=== PATIENT | male | born 1935 | race Caucasian/White ===

== ENCOUNTER → 2016-12-23 | Day surgery (SDC) | payer MEDICARE ==
[~2016-12-23] MED LIST: AMBI5TAB PO; ASPI1TAB69 PO; GABA300C5 PO; HYDR25TA5 PO; LATA0.002 EACH EYE; LIDOCAINE HCL 1% PF 30 ML VIAL INFIL ONE; LIPI10TA PO; LOSA25TA PO; METF500T PO; MULT1TAB85 PO; OXYC1TAB63 PO; PERC7.5T13 PO; PROPOFOL 200 MG/20 ML AMP IV ONE; ROPI.5 PO; ROPI0.5T PO; SODIUM CHLORIDE 0.9% 10 ML VIAL ONE; TIMO0.5S30 EACH EYE; TRAZ50TA12 PO; TRIAMCINOLONE ACETONIDE 40 MG/ML VIAL NB ONE; methylPREDNISolone ACETATE 40 MG/ML VIAL I-ARTICULR ONE
--- NOTE | 2016-12-26 07:18 | M6 ---
cc: DAHLIA DERAS M.D. DATE 12/23/2016 DATE OF 1935 PROCEDURE Fluoroscopically guided injection of left gluteus medius and minimus. PROCEDURE NOTE History and physical was completed and signed. Consent was signed. Procedure site was marked. Medications were listed and reconciled. Pain score was recorded. Allergies were noted. Time out was taken. Fluoroscopy time was recorded where applicable. Sedation was administered or directed by Dr. Deras. The patient was given oxygen. The patient was monitored by a registered nurse. Total procedure time was greater than 15 minutes. IV was started, blood pressure cuff, pulse oximeter and EKG were applied. The patient was placed in the prone position on a Gage table, sedated with small amounts of propofol titrated to effect. Vital signs were monitored and remained stable throughout the procedure. The left buttocks and hip area were prepped with alcohol and 10% Betadine solution and draped with sterile drapes. Fluoroscopy was used to visualize the left trochanter and the left acetabulum. Then a 3-1/2-inch 22-gauge spinal needle was advanced down to the anatomical location of the gluteus medius and there was negative aspiration for blood or any other type of fluid and the patient was given 10 mL of half percent Xylocaine, 20 mg of Depo-Medrol and 20 mg of Kenalog. Following the procedure, the patient was taken to the recovery room with stable vital signs neurologically intact. He will be evaluated immediately and with followup to determine if he has a subjective decrease in his usual pain and a corresponding objective increase his functional capabilities. W. MD JOSÉ LUIS Moody/TOMASA /10:25 AM /7:16 AM
== END | disposition home or self-care (01) ==
LOC: PHSDC 08:39
PROVIDERS: ATTEND Pain Medicine Interventional Pain Medicine
DX: M54.5 Low back pain (principal)
CPT/HCPCS: 64445; 77003; 99152; J1030; J3301

== ENCOUNTER 2017-02-19 05:51 | Inpatient (IN) | payer MEDICARE ==
[~2017-02-19] VITALS: Ht 177.8 cm; Wt 124.0 kg
[~2017-02-19 05:51] MED LIST changes: -LIDOCAINE HCL 1% PF 30 ML VIAL INFIL ONE; -PERC7.5T13 PO; -PROPOFOL 200 MG/20 ML AMP IV ONE; -ROPI.5 PO; -SODIUM CHLORIDE 0.9% 10 ML VIAL ONE; -TRIAMCINOLONE ACETONIDE 40 MG/ML VIAL NB ONE; -methylPREDNISolone ACETATE 40 MG/ML VIAL I-ARTICULR ONE
[2017-02-19] MEDS ORDERED: METOPROLOL TARTRATE 25 MG TAB PO PRN (06:30)
[2017-02-19] MEDS ORDERED: SODIUM CHLORID 0.9% 500 ML IV PRN (06:30)
[2017-02-19] MEDS ORDERED: SODIUM CHLOR 0.9% 1000 ML INJ 1,000 ML IV SCH (06:30)
[2017-02-19] MEDS ORDERED: VANCOMYCIN HCL 1000 MG ON-CALL/NS 250 ML IV SCH ×2 (06:30)
[2017-02-19] MEDS ORDERED: LACTATED RINGER'S 1000 ML IV PRN (06:30)
[2017-02-19] MEDS ORDERED: INSULIN HUMAN REGULAR 1,000 UNITS/10 ML VIAL SQ PRN (06:30)
[2017-02-19] MEDS ORDERED: CHLORHEXIDINE GLUCONATE 2 % 1 PACK (2 CLOTHS) TOPICAL PRN (06:30)
[2017-02-19] MEDS ORDERED: POVIDONE IODINE 5% (ANTISEPSIS KIT) 4 APPLICATIONS EACH NARE PRN (06:30)
[2017-02-19 07:13] VITALS: BP 125/72; PULSE 100; RESP 18; TEMP 98.3; O2SAT 97
[2017-02-19] MEDS ORDERED: FAMOTIDINE 20 MG/2 ML VIAL ONE (08:10)
[2017-02-19] MEDS ORDERED: HYDROmorphone HCL PF 2 MG/ML VIAL ONE (08:10)
[2017-02-19] MEDS ORDERED: ACETAMINOPHEN 1000 MG/100 ML VIAL IV ONE (08:10)
[2017-02-19] MEDS ORDERED: fentaNYL CITRATE 250 MCG/5 ML AMP ONE (08:10)
[2017-02-19] MEDS ORDERED: MIDAZOLAM HCL 2 MG/2 ML VIAL ONE (08:10)
[2017-02-19] MEDS ORDERED: GELFOAM SIZE 100 ONE (08:25)
[2017-02-19] MEDS ORDERED: VANCOMYCIN HCL 1000 MG VIAL ONE (08:25)
[2017-02-19] MEDS ORDERED: THROMBIN (TOPICAL) 5,000 UNIT VIAL ONE ×2 (08:25→11:17)
[2017-02-19] MEDS: BUPIVACAINE/EPINEPHRINE 0.5% 50 ML VIAL ONE ×2 (09:13→11:46)
[2017-02-19] MEDS ORDERED: NEOSTIGMINE 3 MG/3 ML SYR IV ONE (12:00)
[2017-02-19] MEDS ORDERED: ONDANSETRON HCL 4 MG/2 ML VIAL IV PUSH ONE (12:00)
[2017-02-19] MEDS ORDERED: ePHEDrine/NS 25 MG/5 ML SYR IV ONE (12:00)
[2017-02-19] MEDS ORDERED: LACTATED RINGER'S 1000 ML INJ 1,000 ML IV ONE (12:00)
[2017-02-19] MEDS ORDERED: PHENYLEPH/NS 1000 MCG/10 ML SYR IV ONE (12:00)
[2017-02-19] MEDS ORDERED: PROPOFOL 200 MG/20 ML AMP IV ONE (12:00)
[2017-02-19] MEDS ORDERED: diphenhydrAMINE HCL 50 MG/ML VIAL IV PRN (12:30)
[2017-02-19] MEDS ORDERED: GLUCAGON 1 MG/ML VIAL OTHER PRN (12:30)
[2017-02-19] MEDS ORDERED: DEXTROSE 50% IN WATER 50 ML VIAL(D50) IV PRN (12:30)
[2017-02-19] MEDS ORDERED: ACETAMINOPHEN 325 MG TAB PO PRN (12:30)
[2017-02-19] MEDS ORDERED: LACTULOSE SYRUP 20 GM/30 ML CUP PO PRN (12:30)
[2017-02-19] MEDS ORDERED: cloNIDine HCL 0.1 MG TAB PO PRN (12:30)
[2017-02-19] MEDS ORDERED: SODIUM CHLORIDE 0.9% FLUSH 10 ML FLUSH IV FLUSH PRN (12:30)
[2017-02-19] MEDS ORDERED: MENTHOL LOZENGE BUCCAL PRN (12:30)
[2017-02-19] MEDS ORDERED: NALOXONE HCL 0.4 MG/ML AMP IV PRN (12:30)
[2017-02-19] MEDS ORDERED: MAGNESIUM HYDROXIDE SUSP 30 ML CUP PO PRN (12:30)
[2017-02-19] MEDS ORDERED: ZOLPIDEM TARTRATE 5 MG TAB PO PRN (12:30)
[2017-02-19] MEDS ORDERED: ALUMINUM/MAGNESIUM/SIMETH 30 ML CUP PO PRN (12:30)
--- NOTE | 2017-02-19 12:30 | PD.OP ---
MD Marques Payne MD Operative Report Date of Surgery: February 19, 2017 Preoperative Diagnosis: Intractable low back pain with radiculopathy and neurogenic claudication; L4-5 facet and ligamentum flavum hypertrophy with associated spinal stenosis; L5-S1 severe Kelly disc disease with the facet hypertrophy and grade 1 spondylolisthesis with associated foraminal stenosis Postoperative Diagnosis: Same Procedure: L5-S1 transforaminal interbody fusion; L4, L5 and S1 decompressive laminectomy with medial facetectomy and foraminotomy; L5-S1 pedicle screw fixation; L5-S1 interbody cage placement; microsurgical technique Anesthesia: Gen. endotracheal by Marita Arreola Surgeon: Dexter Dumont M.D. Ball Holder(s): Alyx Bates Operation and Findings: Following initiation of general endotracheal anesthesia, the patient had a Suero catheter placed along with sequential compression devices. A gram of vancomycin was administered intravenously and he was turned in a prone position on a Ghassan frame, on a Gage table, and all pressure points adequately padded. The lumbosacral region was then prepped with Chloraprep and sterilely draped with Ioban along the usual sterile draping. A midline skin incision incorporating the previous lumbar incision site was then made extending from the L4-S1 level after infiltrating the skin with 0.5% Marcaine with epinephrine solution extending down through the fascia. The muscle fibers were split using avascular fatty plane and detached from the underlying facets, transverse process and lamina on the left side and a self-retaining retractor used for exposure. Intraoperative fluoroscopy was also used for level of confirmation along with microscope magnification for further dissection. There was significant facet and ligamentum flavum hypertrophy noted at the L4-5 as well as L5-S1 levels. Left L4-5 laminotomy along with medial portion of the facet was resected with a drill bit and there was severe foraminal and lateral recess stenosis from hypertrophied ligamentum flavum and facet which were decompressed bilaterally through the left-sided approach. Left L5 and S1 lamina along with the facet was also resected with the drill bit. There was significant foraminal stenosis with nerve root impingement related to the facet hypertrophy as well as a spondylolisthesis and the exiting L5 nerve root was decompressed completely. There was significant disc height collapse along with disc protrusion and spondylolisthesis also leading to the foraminal stenosis. Epidural hemostasis was achieved with bipolar cautery and Gelfoam with thrombin. Subsequently entered into the disc space at the L5-S1 level with a # 15 blade and brody were used for discectomy. I then placed PEEK cage packed with local autograft bone and more local autograft bone was packed adjacent to the cage in interspace for added interbody fusion. With placement of the cage, I was able to distract the interspace and opened up the foramen further bilaterally. Subsequently in order to facilitate the fusion and provide stabilization, pedicle screw fixation was undertaken using Coronado spine screws on entry point at the left L5 level at the junction of the transverse process and facet and the sacral ala through the S1 pedicle approach. Subsequently using AP and lateral fluoroscopy tap and screw placement. The screws were then connected with a monty and locked in place with caps. The construct appeared very secure at this point. The area was then copiously irrigated with Vancomycin solution and powder. The retractors were removed and the bipolar cautery used for hemostasis. The muscle fascia was then approximated using 2-0 Vicryl interrupted stitches and then 3-0 Vicryl subcuticular stitches also placed in interrupted fashion. The final skin closure was completed with BioGlue absorbable. A sterile dressing was then applied. The patient then turned in supine position, extubated and taken to recovery room. There were no intraoperative complications. All sponge and needle counts were correct at the end of procedure. Estimated blood loss about 100 ml. Dexter Dumont MD February 19, 2017 12:30
[2017-02-19] MEDS ORDERED: PROCHLORPERAZINE INJ 10 MG/2 ML VIAL IV PUSH PRN (12:45)
[2017-02-19] MEDS ORDERED: DO NOT ADM ANY ANTICOAGULANT DRUGS PRN (13:00)
[2017-02-19] MEDS ORDERED: *morphine SULFATE 8 MG/ML PERIprocedure ONLY ONE (13:13)
[2017-02-19] MEDS: NS + KCL 20 MEQ INJ 1,000 ML IV SCH (13:15)
--- NOTE | 2017-02-19 13:30 | RADRPT ---
EXAM DATE/TIME: 02/19/2017 08:46 [place] COMPARISON: No previous studies available for comparison. INDICATIONS : Lumbar spine L5-S1 laminectomy, interbody cage, and pedicle screw fixation. OR. MEDICAL HISTORY : None. SURGICAL HISTORY : None. ENCOUNTER: Initial ACUITY: 1 day PAIN SCORE: Non-responsive. LOCATION: Lumbar L5-S1 FINDINGS: There is anterior and posterior fusion with pedicle screws on the left and interbody graft from L5-S1 . CONCLUSION: 1. Postsurgical changes as above. Georges Cardozo MD on February 19, 2017 at 13:23 Board Certified Radiologist. This report was verified electronically.
[2017-02-19] MEDS: MORPHINE SULFATE 30 MG/30 ML PCA IV SCH (13:41)
--- NOTE | 2017-02-19 13:50 | PD.CONS ---
HPI Service [facility] Hospitalists Consult Requested By Dr. Dumont Reason for Consult Medical Management Primary Care Physician Gagandeep Alejo MD Diagnoses: History of Present Illness Mr. Braden is an 81 y/o male with HTN, diabetes mellitus, KARYNA, RLS, and chronic back pain with lumbar spinal stenosis/radiculopathy who was admitted to [facility] on 02/19/17 for L5-S1 transforaminal interbody fusion/ L4, L5 and S1 decompressive laminectomy and fixation. [facility] Hospitalist team was consulted to help with managing the pts chronic medical issues. Pt is seen post-operatively. Pt complains of pain in the back. Pt has had some nausea post-operative. Denies any vomiting, abd pain, chest pain, SOB or palpitations. He feels very restless. Suero catheter is in place. Review of Systems Constitutional: DENIES: Fever, Chills Respiratory: DENIES: Shortness of breath Cardiovascular: DENIES: Chest pain, Palpitations Gastrointestinal: DENIES: Abdominal pain, Nausea, Vomiting Genitourinary: DENIES: Hematuria, Dysuria Musculoskeletal: COMPLAINS OF: Back pain Integumentary: DENIES: Rash Neurologic: DENIES: Headache Psychiatric: DENIES: Confusion Past Family Social History Past Medical History Chronic low back pain/Lumbar spinal stenosis/radiculopathy BPH Cataracts CKD, stage 3 Diabetes mellitus, type 2 HTN Hyperlipidemia Inflammatory polyarthritis Obesity Peripheral neuropathy KARYNA RLS Thrombocytopenia Past Surgical History Appendectomy Lumbar diskectomy Inguinal hernia repair Sinus surgery Tonsillectomy/Adenoidectomy Reported Medications -Metformin 500 Mg PO BIDPC -Ambien 5 Mg PO HS PRN -Aspirin 81 Mg PO DAILY -Lipitor 10 Mg PO HS -Hydrochlorothiazide 25 Mg PO DAILY -Latanoprost Opth Drops 0.005% Drops 1 Drop EACH EYE HS -Losartan 25 Mg PO DAILY -Oxycodone-Acetaminophen 5-325 mg 0.5 Tab PO Q8HR PRN -Timolol Opth Drops 0.5 % Soln 1 Drop EACH EYE Q12HR -Trazodone 100 Mg PO HS -Gabapentin 300 Mg PO 5 capsules daily in divided dosed (2 tablets@1200,1 tablet @1700, 1 tablet @1900, 1 tablet @2100) -Ropinirole 0.5 Mg (1 tablet @1200, 1 tablet @1700, 2 tablets @2100) ?Duloxetine 30Mg PO DAILY Allergies: Coded Allergies: No Known Allergies (Verified , 02/19/17) Family History Mother with hx of lung cancer Father with hx of CAD Social History Denies any alcohol, tobacco or illicit drug use Pt is retired from [employer] Pt is and lives locally with his spouse. Physical Exam Vital Signs Vital Signs Date Time Temp Pulse Resp B/P Pulse Ox O2 Delivery O2 Flow Rate FiO2 02/19/17 07:13 98.3 100 18 125/72 97 Physical Exam GENERAL: This is a well-nourished, well-developed patient, in no apparent distress. HEENT: Atraumatic. Normocephalic. No temporal or scalp tenderness.No scleral icterus. Airway patent. NECK: Trachea midline, supple, nontender CARDIO: Regular. RESP: CTA bilaterally. No wheezes, rales, or rhonchi. ABD: +BS, soft, non-tender, nondistended. EXT: Extremities without clubbing, cyanosis, or edema. NEURO: Awake and alert. Motor and sensory grossly within normal limits. Normal speech. Laboratory Laboratory Tests Test 02/19/17 07:30 Blood Type O POSITIVE Antibody Screen NEGATIVE Blood Bank Comment Imaging Last Impressions Lumbar Spine X-Ray 02/19/17 0000 Signed Impressions: Service Date/Time: Sunday, February 19, 2017 08:46 - CONCLUSION: 1. Postsurgical changes as above. Georges Cardozo MD Assessment and Plan Problem List: (1) Lumbar stenosis with neurogenic claudication Status: Acute Plan: - Pt s/p L5-S1 transforaminal interbody fusion/ L4, L5 and S1 decompressive laminectomy and fixation on 02/19/[address] Dumont. - Post-op pain control per Neurosurgery - PT daily - IS - Constipation precautions - Pt has Suero catheter in place - DVT prophylaxis (2) HTN (hypertension), benign Status: Chronic Plan: - Home meds continued with parameters - Monitor (3) Diabetes mellitus type 2, noninsulin dependent Status: Chronic Plan: - NovoLog SSI - Accu checks - Metformin continued (4) Hyperlipidemia Status: Chronic Plan: - Cont. home meds (5) KARYNA (obstructive sleep apnea) Status: Chronic Deysi Andrew February 19, 2017 13:50 Emil Ghotra MD February 19, 2017 22:14
[2017-02-19 13:52] LABS: AUTOMATED NEUTROPHIL # 9.2 TH/MM3 (1.8-7.7); BASOPHIL % 0.2 % (0.0-2.0); EOSINOPHIL # 0.2 TH/MM3 (0-0.4); EOSINOPHIL % 1.7 % (0.0-4.0); HEMATOCRIT 35.4 % (39.0-51.0); HEMO FLAGS DIFF FINAL; LYMPH % 5.5 % (9.0-44.0); LYMPHOCYTE # 0.6 TH/MM3 (1.0-4.8); MEAN CELL VOLUME 92.5 FL (80.0-100.0); MEAN CORPUSCULAR HEMOGLOBIN 31.8 PG (27.0-34.0); MEAN CORPUSCULAR HGB CONC 34.4 % (32.0-36.0); MONO % 6.5 % (0.0-8.0); NEUT % 86.1 % (16.0-70.0); PLATELET COUNT 147 TH/MM3 (150-450); RED BLOOD COUNT 3.83 MIL/MM3 (4.50-5.90); RED CELL DISTRIBUTION WIDTH 15.5 % (11.6-17.2); WHITE BLOOD COUNT 10.7 TH/MM3 (4.0-11.0)
[2017-02-19] MEDS: PCA - TOTAL MG MORPHINE DELIVERED PER SHIFT SCH ×2 (14:00→21:10)
[2017-02-19] MEDS ORDERED: GABAPENTIN 300 MG CAP PO SCH (14:00)
[2017-02-19 14:09] LABS: BICARBONATE 29.5 MEQ/L (21.0-32.0); MAGNESIUM 1.7 MG/DL (1.5-2.5)
[2017-02-19 16:00] VITALS: BP 119/70; PULSE 96; RESP 20; TEMP 96.6; O2SAT 91
[2017-02-19] MEDS: INSULIN NovoLIN REGULAR SUPPLEMENTAL SCALE SQ SCH ×2 (16:00→21:00)
[2017-02-19] MEDS: ONDANSETRON HCL 4 MG/2 ML VIAL IV PRN (16:12)
[2017-02-19 20:00] VITALS: BP 107/69; PULSE 94; RESP 20; TEMP 97.2; O2SAT 93
[2017-02-19 20:50] VITALS: O2SAT 92
[2017-02-19] MEDS: GABAPENTIN 300 MG CAP PO SCH ×2 (21:00→21:02)
[2017-02-19] MEDS: SODIUM CHLORIDE 0.9% FLUSH 10 ML FLUSH IV FLUSH SCH (21:00)
[2017-02-19] MEDS: ATORVASTATIN 10 MG TAB PO SCH (21:03)
[2017-02-19] MEDS: DOCUSATE SODIUM 100 MG CAP PO SCH (21:03)
[2017-02-19] MEDS: traZODone HCL 50 MG TAB PO SCH (21:09)
[2017-02-19] MEDS: LATANOPROST 0.005% OPHT SOLN 2.5 ML BTL EACH EYE SCH (22:12)
[2017-02-19] MEDS: TIMOLOL MALEATE 0.5% OPHT SOLN 5 ML BTL EACH EYE SCH (22:12)
[2017-02-20] VITALS: BP 95/61; PULSE 90; RESP 18; TEMP 96; O2SAT 98
[2017-02-20] MEDS: NS + KCL 20 MEQ INJ 1,000 ML IV SCH ×2 (01:30→21:40)
[2017-02-20 04:00] VITALS: BP 96/64; PULSE 75; RESP 20; TEMP 98.3; O2SAT 94
[2017-02-20] MEDS: PCA - TOTAL MG MORPHINE DELIVERED PER SHIFT SCH ×3 (06:00→21:48)
[2017-02-20] MEDS: INSULIN NovoLIN REGULAR SUPPLEMENTAL SCALE SQ SCH ×4 (06:25→21:00)
[2017-02-20 08:00] VITALS: BP 139/66; PULSE 95; RESP 20; TEMP 96; O2SAT 97
[2017-02-20] MEDS: PANTOPRAZOLE SOD 40 MG DELAYED RELEASE TAB PO SCH (08:42)
[2017-02-20] MEDS: DOCUSATE SODIUM 100 MG CAP PO SCH ×2 (08:43→21:36)
[2017-02-20] MEDS: ASPIRIN EC 81 MG TABEC PO SCH (08:43)
[2017-02-20] MEDS: TIMOLOL MALEATE 0.5% OPHT SOLN 5 ML BTL EACH EYE SCH ×2 (08:43→21:36)
[2017-02-20] MEDS: POLYETHYLENE GLYCOL 17 GM PKG PO SCH (08:43)
[2017-02-20] MEDS ORDERED: HYDROCHLOROTHIAZIDE 25 MG TAB PO SCH (09:00)
[2017-02-20] MEDS ORDERED: LOSARTAN 25 MG TAB PO SCH (09:00)
[2017-02-20 09:12] LABS: AUTOMATED NEUTROPHIL # 10.2 TH/MM3 (1.8-7.7); BASOPHIL % 0.3 % (0.0-2.0); EOSINOPHIL # 0.3 TH/MM3 (0-0.4); EOSINOPHIL % 2.2 % (0.0-4.0); HEMATOCRIT 35.5 % (39.0-51.0); HEMO FLAGS DIFF FINAL; LYMPH % 7.1 % (9.0-44.0); LYMPHOCYTE # 0.9 TH/MM3 (1.0-4.8); MEAN CELL VOLUME 93.9 FL (80.0-100.0); MEAN CORPUSCULAR HEMOGLOBIN 30.6 PG (27.0-34.0); MEAN CORPUSCULAR HGB CONC 32.6 % (32.0-36.0); MONO % 11.2 % (0.0-8.0); NEUT % 79.2 % (16.0-70.0); PLATELET COUNT 145 TH/MM3 (150-450); RED BLOOD COUNT 3.78 MIL/MM3 (4.50-5.90); RED CELL DISTRIBUTION WIDTH 15.8 % (11.6-17.2); WHITE BLOOD COUNT 12.9 TH/MM3 (4.0-11.0)
[2017-02-20] MEDS: SODIUM CHLORIDE 0.9% FLUSH 10 ML FLUSH IV FLUSH SCH ×2 (09:41→21:00)
[2017-02-20 09:42] LABS: BICARBONATE 32.6 MEQ/L (21.0-32.0); MAGNESIUM 1.8 MG/DL (1.5-2.5)
--- NOTE | 2017-02-20 11:23 | HHI.NSPN ---
(Johny Moore) History Chief Complaint: Incisional pain but controlled. (Johny Moore) Interval History 02/20/17: Pt awake sitting up in chair. Complains of incision back pain but controlled with FRUIT PACKER. Denies radiculopathy into the lower extremities. He states he has stable paresthesias or numbness feet and hands from his neuropathy. (Johny Moore) Review of Systems General: Negative for: fever, chills, insomnia Respiratory: Negative for: shortness of breath, cough, sputum Cardiovascular: Negative for: chest pain Gastrointestinal: Negative for: nausea, vomitting, diarrhea, constipation ( Johny Moore) Exam Results Vital Signs Date Time Temp Pulse Resp B/P Pulse Ox O2 Delivery O2 Flow Rate FiO2 02/20/17 08:00 96.0 95 20 139/66 97 02/19/17 20:50 Nasal Cannula 2.00 Intake and Output 02/19/17 02/19/17 02/20/17 08:00 16:00 00:00 Intake Total 1400 ml 360 ml Output Total 525 ml Balance 875 ml 360 ml (Johny Moore) Physical Examination Resp: CTA bilaterally Heart: NSR no murmurs Abd: Soft positive bs. Obese. Skin: No cyanosis or erythema. Muscle: Moves LEs well. Pt up in chair with brace on. Neuro: Pt awake and alert. Follows commands well. Speech clear and appropriate. (Johny Moore) Lab, Micro, Other Results Laboratory Tests Test 02/19/17 02/20/17 13:36 08:31 White Blood Count 10.7 TH/MM3 12.9 TH/MM3 Red Blood Count 3.83 MIL/MM3 3.78 MIL/MM3 Hemoglobin 12.2 GM/DL 11.6 GM/DL Hematocrit 35.4 % 35.5 % Mean Corpuscular Volume 92.5 FL 93.9 FL Mean Corpuscular Hemoglobin 31.8 PG 30.6 PG Mean Corpuscular Hemoglobin 34.4 % 32.6 % Concent Red Cell Distribution Width 15.5 % 15.8 % Platelet Count 147 TH/MM3 145 TH/MM3 Mean Platelet Volume 7.7 FL 8.2 FL Neutrophils (%) (Auto) 86.1 % 79.2 % Lymphocytes (%) (Auto) 5.5 % 7.1 % Monocytes (%) (Auto) 6.5 % 11.2 % Eosinophils (%) (Auto) 1.7 % 2.2 % Basophils (%) (Auto) 0.2 % 0.3 % Neutrophils # (Auto) 9.2 TH/MM3 10.2 TH/MM3 Lymphocytes # (Auto) 0.6 TH/MM3 0.9 TH/MM3 Monocytes # (Auto) 0.7 TH/MM3 1.4 TH/MM3 Eosinophils # (Auto) 0.2 TH/MM3 0.3 TH/MM3 Basophils # (Auto) 0.0 TH/MM3 0.0 TH/MM3 CBC Comment DIFF FINAL DIFF FINAL Differential Comment Sodium Level 138 MEQ/L 139 MEQ/L Potassium Level 4.0 MEQ/L 4.0 MEQ/L Chloride Level 99 MEQ/L 99 MEQ/L Carbon Dioxide Level 29.5 MEQ/L 32.6 MEQ/L Anion Gap 10 MEQ/L 7 MEQ/L Blood Urea Nitrogen 21 MG/DL 21 MG/DL Creatinine 1.41 MG/DL 1.21 MG/DL Estimat Glomerular Filtration 48 ML/MIN 58 ML/MIN Rate Random Glucose 178 MG/DL 135 MG/DL Calcium Level 9.1 MG/DL 9.0 MG/DL Magnesium Level 1.7 MG/DL 1.8 MG/DL 02/19/17 02/19/17 02/20/17 15:00 23:00 07:00 Intake Total 1400 ml 360 ml 1320 ml Output Total 525 ml 600 ml Balance 875 ml 360 ml 720 ml Intake Oral 360 ml 360 ml IV Total 300 ml 960 ml Other 1100 ml Output Urine Total 425 ml 600 ml Estimated Blood Loss 100 ml (Johny Moore) Medical Decision Making Impression and Plan A: 81 y/o M s/p L4, L5 and S1 decompressive laminectomy with medial facetectomy and foraminotomy and L5/S1 TLIF with cage and pedicle screw fixation. P: Continue with pain control Continue with rehab efforts. D/Magen Suero (Piazza,Johny S. PA) Attending Statement The exam, history, and the medical decision-making described in the above note were completed with the assistance of the mid-level provider. I reviewed and agree with the findings presented. I attest that I had a [id number] encounter with the patient on the same day, and personally performed and documented my assessment and findings in the medical record. (Dexter Dumont MD) Johny Moore February 20, 2017 11:23 Dexter Dumont MD February 20, 2017 18:36
[2017-02-20] MEDS: GABAPENTIN 300 MG CAP PO SCH ×4 (11:43→21:40)
[2017-02-20 12:00] VITALS: BP 100/64; PULSE 92; RESP 19; TEMP 98.5; O2SAT 94
[2017-02-20 16:00] VITALS: BP 130/70; PULSE 96; RESP 19; TEMP 97; O2SAT 94
[2017-02-20 19:30] VITALS: BP 130/74; PULSE 88; RESP 20; TEMP 97; O2SAT 93
[2017-02-20] MEDS: LATANOPROST 0.005% OPHT SOLN 2.5 ML BTL EACH EYE SCH (21:31)
[2017-02-20] MEDS: traZODone HCL 50 MG TAB PO SCH (21:36)
[2017-02-20] MEDS: ATORVASTATIN 10 MG TAB PO SCH (21:36)
[2017-02-20] MEDS: CYCLOBENZAPRINE HCL 10 MG TAB PO PRN (21:38)
[2017-02-21] VITALS (7 sets, daily range): BP systolic 114–149; BP diastolic 56–82; PULSE 73–98; RESP 17–20; TEMP 97–100.3; O2SAT 90–100
[2017-02-21] MEDS: NS + KCL 20 MEQ INJ 1,000 ML IV SCH ×2 (02:30→09:28)
[2017-02-21] MEDS: PCA - TOTAL MG MORPHINE DELIVERED PER SHIFT SCH ×3 (06:00→14:53)
[2017-02-21] MEDS: INSULIN NovoLIN REGULAR SUPPLEMENTAL SCALE SQ SCH ×4 (06:52→21:00)
[2017-02-21] MEDS: SODIUM CHLORIDE 0.9% FLUSH 10 ML FLUSH IV FLUSH SCH ×2 (09:24→21:00)
[2017-02-21] MEDS: PANTOPRAZOLE SOD 40 MG DELAYED RELEASE TAB PO SCH (09:25)
[2017-02-21] MEDS: DOCUSATE SODIUM 100 MG CAP PO SCH ×2 (09:25→21:53)
[2017-02-21] MEDS: ASPIRIN EC 81 MG TABEC PO SCH (09:25)
[2017-02-21] MEDS: POLYETHYLENE GLYCOL 17 GM PKG PO SCH (09:26)
[2017-02-21] MEDS: ENOXAPARIN SODIUM 40 MG/0.4 ML SYRINGE SQ SCH (09:26)
[2017-02-21] MEDS: TIMOLOL MALEATE 0.5% OPHT SOLN 5 ML BTL EACH EYE SCH ×2 (09:29→21:59)
[2017-02-21] MEDS: GABAPENTIN 300 MG CAP PO SCH ×5 (11:48→22:02)
[2017-02-21] MEDS: MORPHINE SULFATE 30 MG/30 ML PCA IV SCH (14:49)
--- NOTE | 2017-02-21 15:45 | HHI.NSPN ---
History Chief Complaint: Incisional pain but controlled. Interval History 81-year-old gentleman who is now postop day #2 status post L4-S1 laminectomy with L5-S1 TLIF. Improved and incisional pain and lower extremity symptoms. Ambulating several times yesterday and today. Voiding well. Exam Results Vital Signs Date Time Temp Pulse Resp B/P Pulse Ox O2 Delivery O2 Flow Rate FiO2 02/21/17 14:15 18 02/21/17 12:00 100.0 88 114/58 90 02/19/17 20:50 Nasal Cannula 2.00 Intake and Output 02/20/17 02/20/17 02/21/17 08:00 16:00 00:00 Intake Total 1320 ml 1864 ml 1928 ml Output Total 600 ml 425 ml Balance 720 ml 1439 ml 1928 ml Physical Examination Resp: CTA bilaterally Heart: NSR no murmurs Abd: Soft positive bs. Obese. Skin: No cyanosis or erythema. Incision clean and dry with no drainage. Muscle: Moves LEs well. Pt up in chair with brace on. Neuro: Pt awake and alert. Follows commands well. Speech clear and appropriate. Medical Decision Making Impression and Plan s/p L4-S1 laminectomy with L5-S1 TLIF postoperative day #2. Continue with DATA PROCESSING SYSTEMS CONSULTANT for another day and then we'll switch over to by mouth meds. He refuses to go to rehabilitation. Plan discharge home with home physical therapy over the next few days when he can ambulate without assistance since is unable to help him. He is on Miralax and Colace for constipation and will add lactulose. Continue with the SCDs for DVT prophylaxis and will start also on Lovenox. Out of bed with physical therapy. Dexter Dumont MD February 21, 2017 15:45
[2017-02-21] MEDS: LACTULOSE SYRUP 20 GM/30 ML CUP PO SCH (17:12)
[2017-02-21] MEDS: ATORVASTATIN 10 MG TAB PO SCH (21:53)
[2017-02-21] MEDS: traZODone HCL 50 MG TAB PO SCH (21:55)
[2017-02-21] MEDS: ACETAMINOPHEN/HYDROcodone 325 MG/10 MG TAB PO PRN (21:57)
[2017-02-21] MEDS: CYCLOBENZAPRINE HCL 10 MG TAB PO PRN (21:59)
[2017-02-21] MEDS: LATANOPROST 0.005% OPHT SOLN 2.5 ML BTL EACH EYE SCH (22:00)
[2017-02-22] MEDS: ACETAMINOPHEN/HYDROcodone 325 MG/10 MG TAB PO PRN ×3 (03:21→21:49)
[2017-02-22 04:00] VITALS: BP 132/86; PULSE 91; RESP 20; TEMP 97.8; O2SAT 98
[2017-02-22] MEDS: PCA - TOTAL MG MORPHINE DELIVERED PER SHIFT SCH ×3 (05:12→22:08)
[2017-02-22] MEDS: INSULIN NovoLIN REGULAR SUPPLEMENTAL SCALE SQ SCH ×4 (06:01→21:00)
[2017-02-22 08:00] VITALS: BP 118/61; PULSE 96; RESP 20; TEMP 95.8; O2SAT 95
[2017-02-22] MEDS: ASPIRIN EC 81 MG TABEC PO SCH (09:00)
[2017-02-22] MEDS: SODIUM CHLORIDE 0.9% FLUSH 10 ML FLUSH IV FLUSH SCH ×2 (09:00→21:47)
[2017-02-22] MEDS: TIMOLOL MALEATE 0.5% OPHT SOLN 5 ML BTL EACH EYE SCH ×2 (09:00→21:46)
[2017-02-22] MEDS: POLYETHYLENE GLYCOL 17 GM PKG PO SCH (09:00)
[2017-02-22] MEDS: LACTULOSE SYRUP 20 GM/30 ML CUP PO SCH (09:03)
[2017-02-22] MEDS: PANTOPRAZOLE SOD 40 MG DELAYED RELEASE TAB PO SCH (09:03)
[2017-02-22] MEDS: ENOXAPARIN SODIUM 40 MG/0.4 ML SYRINGE SQ SCH (09:04)
[2017-02-22] MEDS: DOCUSATE SODIUM 100 MG CAP PO SCH ×2 (09:04→21:00)
[2017-02-22] MEDS: GABAPENTIN 300 MG CAP PO SCH ×4 (11:10→22:07)
[2017-02-22 12:00] VITALS: BP 120/58; PULSE 99; RESP 20; TEMP 99.9; O2SAT 95
[2017-02-22] MEDS: NS + KCL 20 MEQ INJ 1,000 ML IV SCH (15:00)
--- NOTE | 2017-02-22 15:12 | HHI.NSPN ---
(Ino Brown) Note Status Status: Progress Note (Ino Brown) Interval History Interval History 02/20/17: Pt awake sitting up in chair. Complains of incision back pain but controlled with FLIGHT RADIO OPERATOR. Denies radiculopathy into the lower extremities. He states he has stable paresthesias or numbness feet and hands from his neuropathy. 02/21/17: 81-year-old gentleman who is now postop day #2 status post L4-S1 laminectomy with L5-S1 TLIF. Improved and incisional pain and lower extremity symptoms. Ambulating several times yesterday and today. Voiding well. 02/22/17: Patient seen with Dr Molina. He is doing well and sitting up in chair when seen. He denies any pain at present. The FLIGHT RADIO OPERATOR has been discontinued. He does have some numbness and tingling to the lower extremities that was present before surgery as well. (Ino Brown) Labs, Micro, & Vital Signs Constitutional Vital Signs Date Time Temp Pulse Resp B/P Pulse Ox O2 Delivery O2 Flow Rate FiO2 02/22/17 14:00 18 02/22/17 12:00 99.9 99 20 120/58 95 02/22/17 08:00 95.8 96 20 118/61 95 02/22/17 05:12 18 02/22/17 04:21 18 02/22/17 04:00 97.8 91 20 132/86 98 02/21/17 20:30 100.0 82 17 100 02/21/17 20:00 97.2 81 18 140/82 100 02/21/17 16:00 100.3 86 17 115/56 97 02/22/17 07:00 Intake Total 1159 ml Output Total 2375 ml Balance -1216 ml (Ino Brown) Review of Systems/Exam ROS Back: Patient denies any pain to the back. Extremities: Patient denies any pain or weakness to the extremities. Neurological: Patient has numbness and tingling that persists and was present prior to surgery. Exam Muscle: Moves LEs well, no evident weakness. Pt up in chair with brace on. Neuro: Pt awake and alert. Follows commands well. Speech clear and appropriate. (Ino Brown) Medications Current Medications Current Medications Medications (Trade) Dose Ordered Sig/Justin Route Start Time Stop Time Status Last Admin (Ecotrin Ec) 81 mg DAILY PO 02/20/17 09:00 02/21/17 09:25 (Lipitor) 10 mg HS PO 02/19/17 21:00 02/21/17 21:53 (Xalatan 0.005% Opth Soln) 1 drop HS EACH EYE 02/19/17 21:00 02/21/17 22:00 (Timoptic 0.5% Opth Soln) 1 drop Q12HR EACH EYE 02/19/17 21:00 02/22/17 09:00 (Desyrel) 100 mg HS PO 02/19/17 21:00 02/21/17 21:55 (Ambien) 5 mg HS PRN PO 02/19/17 12:30 (D50w (Vial) Inj) 50 ml UNSCH PRN IV 02/19/17 12:30 (Glucagon Inj) 1 mg UNSCH PRN OTHER 02/19/17 12:30 (Narcan Inj) 0.4 mg UNSCH PRN IV 02/19/17 12:30 (Benadryl Inj) 25 mg Q6H PRN IV 02/19/17 12:30 (Morphine 1 Mg/ ml FLIGHT RADIO OPERATOR) 30 mg UNSCH IV 02/19/17 12:30 02/21/17 14:49 FLIGHT RADIO OPERATOR Dosage Infused (Pha) 1 1 Q8HR .XX 02/19/17 14:00 02/22/17 14:00 (NS + KCl 20 Meq Inj) 1,000 ml @ 30 mls/hr Q24H IV 02/19/17 13:00 02/21/17 09:28 (NS Flush) 2 ml UNSCH PRN IV FLUSH 02/19/17 12:30 (NS Flush) 2 ml BID IV FLUSH 02/19/17 21:00 02/22/17 09:00 (Colace) 100 mg BID PO 02/19/17 21:00 02/22/17 09:04 (Milk Of Magnesia Liq) 30 ml DAILY PRN PO 02/19/17 12:30 (Mag-Al Plus Susp Liq) 30 ml Q6H PRN PO 02/19/17 12:30 (Protonix) 40 mg DAILY PO 02/20/17 09:00 02/22/17 09:03 (Zofran Inj) 4 mg Q6H PRN IV 02/19/17 12:30 02/19/17 16:12 ([place]bron 10-325 Mg) 1 tab Q4H PRN PO 02/19/17 12:30 02/22/17 03:21 ([place]bron 10-325 Mg) 2 tab Q4H PRN PO 02/19/17 12:30 (Flexeril) 10 mg Q8H PRN PO 02/19/17 12:30 02/21/17 21:59 (Catapres) 0.1 mg Q6H PRN PO 02/19/17 12:30 (Tylenol) 650 mg Q4H PRN PO 02/19/17 12:30 02/21/17 17:13 (Webster Aislinn) 1 lozenge UNSCH PRN BUCCAL 02/19/17 12:30 (Miralax) 17 gm DAILY PO 02/20/17 09:00 02/22/17 09:00 (Lactulose Liq) 30 ml DAILY PRN PO 02/19/17 12:30 (Compazine Inj) 10 mg Q6H PRN IV PUSH 02/19/17 12:45 (Neurontin) 300 mg TID@17,19,21 PO 02/19/17 19:00 02/21/17 22:02 (Requip) 0.5 mg BID@12,17 PO 02/19/17 17:30 02/22/17 11:10 (Neurontin) 600 mg DAILY@1200 PO 02/20/17 12:00 02/22/17 11:10 (Requip) 1 mg HS PO 02/19/17 21:00 02/21/17 21:00 (Lovenox Inj) 40 mg Q24H SQ 02/21/17 09:00 02/22/17 09:04 (Lactulose Liq) 30 ml DAILY PO 02/21/17 16:00 02/22/17 09:03 (Ino Brown) Medical Decision Making MDM Remarks S/P L4-S1 laminectomy with L5-S1 TLIF postoperative day #3. Continues to do well Max temp 100.3 yesterday afternoon, will follow (Ino Brown) Plan Plan Remarks PO pain meds Mobilise patient PT tx DVT prophylaxis with Lovenox & SCDs Miralax, Colace and lactulose for constipation Plan discharge home with home physical therapy over the next few days when he can ambulate without assistance since is unable to help him. (Ino Brown) Attending Statement I have personally seen and examined the patient on the date of this note. Pertinent documentation and study results have been reviewed by the undersigned. I have personally developed the treatment plan and performed medical decision making. Agree with findings, exam, and treatment plan as noted above. Lower extremity pain symptoms improved postoperative Lower extremity exam stable Weaned FLIGHT RADIO OPERATOR (Nico Molina MD) Ino Brown February 22, 2017 15:12 Nico Molina MD February 23, 2017 16:58
[2017-02-22 16:41] VITALS: BP 108/71; PULSE 60; RESP 18; TEMP 98.5; O2SAT 93
[2017-02-22 20:00] VITALS: BP 121/67; PULSE 106; RESP 18; TEMP 99.1; O2SAT 91
[2017-02-22] MEDS: LATANOPROST 0.005% OPHT SOLN 2.5 ML BTL EACH EYE SCH (21:46)
[2017-02-22] MEDS: traZODone HCL 50 MG TAB PO SCH (21:47)
[2017-02-22] MEDS: ATORVASTATIN 10 MG TAB PO SCH (21:49)
[2017-02-22] MEDS: CYCLOBENZAPRINE HCL 10 MG TAB PO PRN (22:06)
[2017-02-23] VITALS (7 sets, daily range): BP systolic 104–143; BP diastolic 65–78; PULSE 80–95; RESP 18–20; TEMP 96.7–98.9; O2SAT 90–100
[2017-02-23] MEDS: NS + KCL 20 MEQ INJ 1,000 ML IV SCH (05:35)
[2017-02-23] MEDS: PCA - TOTAL MG MORPHINE DELIVERED PER SHIFT SCH ×2 (05:37→12:55)
[2017-02-23] MEDS: INSULIN NovoLIN REGULAR SUPPLEMENTAL SCALE SQ SCH ×4 (06:54→20:24)
[2017-02-23] MEDS: POLYETHYLENE GLYCOL 17 GM PKG PO SCH (08:37)
[2017-02-23] MEDS: DOCUSATE SODIUM 100 MG CAP PO SCH ×2 (08:37→20:15)
[2017-02-23] MEDS: LACTULOSE SYRUP 20 GM/30 ML CUP PO SCH (08:37)
[2017-02-23] MEDS: ENOXAPARIN SODIUM 40 MG/0.4 ML SYRINGE SQ SCH (08:38)
[2017-02-23] MEDS: TIMOLOL MALEATE 0.5% OPHT SOLN 5 ML BTL EACH EYE SCH ×2 (08:38→20:21)
[2017-02-23] MEDS: ASPIRIN EC 81 MG TABEC PO SCH (08:38)
[2017-02-23] MEDS: SODIUM CHLORIDE 0.9% FLUSH 10 ML FLUSH IV FLUSH SCH ×2 (08:38→21:00)
[2017-02-23] MEDS: PANTOPRAZOLE SOD 40 MG DELAYED RELEASE TAB PO SCH (08:38)
[2017-02-23] MEDS: GABAPENTIN 300 MG CAP PO SCH ×4 (10:49→20:16)
--- NOTE | 2017-02-23 15:45 | HHI.NSPN ---
(Ino Brown) Note Status Status: Progress Note (Ino Brown) Interval History Interval History 02/20/17: Pt awake sitting up in chair. Complains of incision back pain but controlled with SAW TAILER. Denies radiculopathy into the lower extremities. He states he has stable paresthesias or numbness feet and hands from his neuropathy. 02/21/17: 81-year-old gentleman who is now postop day #2 status post L4-S1 laminectomy with L5-S1 TLIF. Improved and incisional pain and lower extremity symptoms. Ambulating several times yesterday and today. Voiding well. 02/22/17: Patient seen with Dr Molina. He is doing well and sitting up in chair when seen. He denies any pain at present. The SAW TAILER has been discontinued. He does have some numbness and tingling to the lower extremities that was present before surgery as well. 02/23/17: Patient doing well when seen. He states that he has no pain and not required any medication the past couple days. He reports that it does hurt to stand. (Ino Brown) Labs, Micro, & Vital Signs Constitutional Vital Signs Date Time Temp Pulse Resp B/P Pulse Ox O2 Delivery O2 Flow Rate FiO2 02/23/17 11:20 97.8 86 131/66 97 02/23/17 11:10 98.9 84 109/69 95 02/23/17 07:45 98.2 95 131/78 91 02/23/17 05:37 18 02/23/17 04:00 97.5 90 20 104/70 90 02/23/17 00:00 97.0 80 18 140/71 98 02/22/17 22:08 20 02/22/17 20:00 99.1 106 18 121/67 91 02/22/17 16:41 98.5 60 18 108/71 93 02/23/17 07:00 Output Total 1000 ml Balance -1000 ml (Ino Bronw) Review of Systems/Exam ROS Constitutional: Patient denies any fever or chills. Respiratory: Patient denies any shortness of breath or productive cough. Cardiovascular: Patient denies any chest pain, irregular heart beat or palpitations. Gastrointestinal: Patient denies any abdominal pain, nausea, vomiting or bowel incontinence. Genitourinary: Patient denies any bladder incontinence. Back: Patient denies any pain to the back. Extremities: Patient sates that he has weakness to the legs and they hurt when he stands up. He denies any weakness or pain to the arms. Neurological: Patient has numbness and tingling secondary to peripheral neuropathy that was present prior to surgery. He denies any headache, dizziness or other numbness/tingling. Exam General: Awake & alert in chair, NAD, affect normal. Respiratory: CTAB w/o W/R/R, equal excursion, non-laboured, on RA Cardiovascular: S1S2 w/RRR w/o M/G/R Gastrointestinal: Abdomen moderately distended, nontender, bowel sounds not appreciated Back: LSO brace in place. Dressing intact to surgical incision, mildly TTP, incision well approximated with minimal erythema to area, no evident drainage or streaking. Extremities: Neurological: AAOx3 Speech clear & appropriate Follows commands without difficulty Sensation decreased BLE w/o any change due to peripheral neuropathy Moves BLE well, no evident weakness (Ino Brown) Medications Current Medications Current Medications Medications (Trade) Dose Ordered Sig/Justin Route Start Time Stop Time Status Last Admin (Ecotrin Ec) 81 mg DAILY PO 02/20/17 09:00 02/23/17 08:38 (Lipitor) 10 mg HS PO 02/19/17 21:00 02/22/17 21:49 (Xalatan 0.005% Opth Soln) 1 drop HS EACH EYE 02/19/17 21:00 02/22/17 21:46 (Timoptic 0.5% Opth Soln) 1 drop Q12HR EACH EYE 02/19/17 21:00 02/23/17 08:38 (Desyrel) 100 mg HS PO 02/19/17 21:00 02/22/17 21:47 (Ambien) 5 mg HS PRN PO 02/19/17 12:30 (D50w (Vial) Inj) 50 ml UNSCH PRN IV 02/19/17 12:30 (Glucagon Inj) 1 mg UNSCH PRN OTHER 02/19/17 12:30 (Narcan Inj) 0.4 mg UNSCH PRN IV 02/19/17 12:30 (Benadryl Inj) 25 mg Q6H PRN IV 02/19/17 12:30 (Morphine 1 Mg/ ml SAW TAILER) 30 mg UNSCH IV 02/19/17 12:30 02/21/17 14:49 SAW TAILER Dosage Infused (Pha) 1 Q8HR .XX 02/19/17 14:00 02/23/17 05:37 (NS Flush) 2 ml UNSCH PRN IV FLUSH 02/19/17 12:30 (NS Flush) 2 ml BID IV FLUSH 02/19/17 21:00 02/22/17 21:47 (Colace) 100 mg BID PO 02/19/17 21:00 02/22/17 09:04 (Milk Of Magnesia Liq) 30 ml DAILY PRN PO 02/19/17 12:30 (Mag-Al Plus Susp Liq) 30 ml Q6H PRN PO 02/19/17 12:30 (Protonix) 40 mg DAILY PO 02/20/17 09:00 02/23/17 08:38 (Zofran Inj) 4 mg Q6H PRN IV 02/19/17 12:30 02/19/17 16:12 ([place] 10-325 Mg) 1 tab Q4H PRN PO 02/19/17 12:30 02/22/17 21:49 ([place] 10-325 Mg) 2 tab Q4H PRN PO 02/19/17 12:30 (Flexeril) 10 mg Q8H PRN PO 02/19/17 12:30 02/22/17 22:06 (Catapres) 0.1 mg Q6H PRN PO 02/19/17 12:30 (Tylenol) 650 mg Q4H PRN PO 02/19/17 12:30 02/21/17 17:13 ([place] Aislinn) 1 lozenge UNSCH PRN BUCCAL 02/19/17 12:30 (Miralax) 17 gm DAILY PO 02/20/17 09:00 02/22/17 09:00 (Lactulose Liq) 30 ml DAILY PRN PO 5/17/17 12:30 (Compazine Inj) 10 mg Q6H PRN IV PUSH 02/19/17 12:45 (Neurontin) 300 mg TID@17,,21 PO 02/19/17 19:00 02/22/17 22:07 (Requip) 0.5 mg BID@12,17 PO 02/19/17 17:30 02/23/17 10:49 (Neurontin) 600 mg DAILY@1200 PO 02/20/17 12:00 02/23/17 10:49 (Requip) 1 mg HS PO 02/19/17 21:00 02/22/17 22:07 (Lovenox Inj) 40 mg Q24H SQ 02/21/17 09:00 02/23/17 08:38 (Lactulose Liq) 30 ml DAILY PO 02/21/17 16:00 02/22/17 09:03 (Ino Brown) Medical Decision Making MDM Remarks S/P L4-S1 laminectomy with L5-S1 TLIF postoperative day #4. Patient doing well, neurologically stable PT recommends home with [facility] for further therapy Max temp 99.9 yesterday at noon (Ino Brown) Plan Plan Remarks PO pain meds Mobilise patient PT tx DVT prophylaxis with Lovenox & SCDs Miralax, Colace and lactulose for constipation Plan discharge home with home physical therapy over the next few days when he can ambulate without assistance since is unable to help him. (Ino Brown) Attending Statement I have personally seen and examined the patient on the date of this note. Pertinent documentation and study results have been reviewed by the undersigned. I have personally developed the treatment plan and performed medical decision making. Agree with findings, exam, and treatment plan as noted above. Postop pain diminishing SAW TAILER discontinued Mobilizing out of bed with assistance Continue physical therapy Home versus rehabilitation over the next one-2 days anticipated (Nico Molina MD) Ino Brown February 23, 2017 15:45 Nico Molina MD February 23, 2017 16:59
[2017-02-23] MEDS: ACETAMINOPHEN/HYDROcodone 325 MG/10 MG TAB PO PRN ×2 (15:49→23:31)
[2017-02-23] MEDS: ATORVASTATIN 10 MG TAB PO SCH (20:15)
[2017-02-23] MEDS: CYCLOBENZAPRINE HCL 10 MG TAB PO PRN (20:15)
[2017-02-23] MEDS: traZODone HCL 50 MG TAB PO SCH (20:15)
[2017-02-23] MEDS: LATANOPROST 0.005% OPHT SOLN 2.5 ML BTL EACH EYE SCH (20:21)
[2017-02-24] VITALS: BP 117/66; PULSE 102; RESP 20; TEMP 97.1; O2SAT 94
[2017-02-24 04:00] VITALS: BP 110/71; PULSE 95; RESP 20; TEMP 98.1; O2SAT 96
[2017-02-24] MEDS: INSULIN NovoLIN REGULAR SUPPLEMENTAL SCALE SQ SCH ×4 (07:00→20:36)
[2017-02-24 07:40] VITALS: BP 143/84; PULSE 103; RESP 21; TEMP 96.3; O2SAT 95
[2017-02-24] MEDS: POLYETHYLENE GLYCOL 17 GM PKG PO SCH ×2 (09:00→10:42)
[2017-02-24] MEDS: LACTULOSE SYRUP 20 GM/30 ML CUP PO SCH ×2 (09:00→10:42)
[2017-02-24] MEDS: TIMOLOL MALEATE 0.5% OPHT SOLN 5 ML BTL EACH EYE SCH ×2 (10:41→20:35)
[2017-02-24] MEDS: DOCUSATE SODIUM 100 MG CAP PO SCH ×2 (10:42→20:35)
[2017-02-24] MEDS: ASPIRIN EC 81 MG TABEC PO SCH (10:42)
[2017-02-24] MEDS: PANTOPRAZOLE SOD 40 MG DELAYED RELEASE TAB PO SCH (10:42)
[2017-02-24] MEDS: ENOXAPARIN SODIUM 40 MG/0.4 ML SYRINGE SQ SCH (10:46)
[2017-02-24] MEDS: SODIUM CHLORIDE 0.9% FLUSH 10 ML FLUSH IV FLUSH SCH ×2 (10:46→20:36)
[2017-02-24] MEDS: ACETAMINOPHEN/HYDROcodone 325 MG/10 MG TAB PO PRN (10:58)
--- NOTE | 2017-02-24 11:26 | HHI.NSPN ---
(Johny Moore) History Chief Complaint: Incisional pain but controlled. (Johny Moore) Interval History 02/20/17: Pt awake sitting up in chair. 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 Denies radiculopathy into the lower extremities. He states he has stable paresthesias or numbness feet and hands from his neuropathy. 02/24/17: Pt awake and alert, sitting up in chair. Complains of incisional back pain but no radiculopathy in LEs. Paresthesias in feet stable, hx of neuropathy. He ambulates but acknowledges he needs assistance getting oob and out of chair. Agrees he may need short term rehab stay. (Johny Moore) Review of Systems General: Negative for: fever, chills, insomnia Respiratory: Negative for: shortness of breath, cough, sputum Cardiovascular: Negative for: chest pain Gastrointestinal: Negative for: nausea, vomitting, diarrhea, constipation ( Johny Moore) Exam Results Vital Signs Date Time Temp Pulse Resp B/P Pulse Ox O2 Delivery O2 Flow Rate FiO2 02/24/17 07:40 96.3 103 21 143/84 95 Intake and Output 02/23/17 02/23/17 02/23/17 07:59 15:59 23:59 Intake Total 840 ml Output Total 1000 ml 1070 ml Balance -1000 ml -230 ml (Johny Moore) Physical Examination Resp: CTA bilaterally Heart: NSR no murmurs Abd: Soft positive bs Skin: no cyanosis or erythema Muscle: Moves LEs with good strength sitting up in chair with brace on. Neuro: Pt awake and alert. follows commands well. speech clear and appropriate. Neuropathy in feet. (Johny Moore) Lab, Micro, Other Results Last Impressions Lumbar Spine X-Ray 02/19/17 0000 Signed Impressions: Service Date/Time: Sunday, February 19, 2017 08:46 - CONCLUSION: 1. Postsurgical changes as above. Georges Cardozo MD 02/23/17 02/23/17 02/24/17 14:59 22:59 06:59 Intake Total 840 ml 360 ml Output Total 1070 ml Balance -230 ml 360 ml Intake Oral 840 ml 360 ml Output Urine Total 1070 ml # Voids 1 1 3 (Johny Moore) Medical Decision Making Impression and Plan A: 81 y/o M s/p L4, L5 and S1 decompressive laminectomy with medial facetectomy and foraminotomy and L5/S1 TLIF with cage and pedicle screw fixation. P: We are looking into rehab options until pt more confident with getting up oob on his own. Discussed with case management. (Johny Moore) Johny Moore February 24, 2017 11:26 Dexter Dumont MD February 24, 2017 17:53
[2017-02-24 11:35] VITALS: BP 99/67; PULSE 92; RESP 21; TEMP 97.1; O2SAT 96
[2017-02-24] MEDS: GABAPENTIN 300 MG CAP PO SCH ×3 (12:38→20:35)
[2017-02-24 16:05] VITALS: BP 111/66; PULSE 95; RESP 20; TEMP 96; O2SAT 95
--- NOTE | 2017-02-24 17:17 | RADRPT ---
EXAM DATE/TIME: 02/24/2017 16:58 [facility] COMPARISON: No previous studies available for comparison. INDICATIONS : Shortness of breath. Hypoxia. MEDICAL HISTORY : Hypertension. SURGICAL HISTORY : None. ENCOUNTER: Initial ACUITY: 1 day PAIN SCORE: 0/10 LOCATION: Bilateral chest FINDINGS: There is elevation of the diaphragms diminished lung volumes of undetermined chronicity. Mild basilar parenchymal opacity and slight blunting of the costophrenic angles. Visualized cardiac contour is gr ossly satisfactory. CONCLUSION: Symmetrically diminished aeration. Adriel Alaniz MD on February 24, 2017 at 17:14 Board Certified Radiologist. This report was verified electronically.
[2017-02-24 20:00] VITALS: BP 102/97; PULSE 98; RESP 22; TEMP 97.2; O2SAT 95
[2017-02-24] MEDS: ATORVASTATIN 10 MG TAB PO SCH (20:35)
[2017-02-24] MEDS: traZODone HCL 50 MG TAB PO SCH (20:35)
[2017-02-24] MEDS: LATANOPROST 0.005% OPHT SOLN 2.5 ML BTL EACH EYE SCH (20:36)
[2017-02-24] MEDS: CYCLOBENZAPRINE HCL 10 MG TAB PO PRN (21:56)
[2017-02-25] VITALS: BP 98/57; PULSE 87; RESP 22; TEMP 97; O2SAT 92
[2017-02-25 06:39] VITALS: BP 105/64; PULSE 97; RESP 22; TEMP 98; O2SAT 93
[2017-02-25] MEDS: INSULIN NovoLIN REGULAR SUPPLEMENTAL SCALE SQ SCH ×4 (06:49→21:00)
[2017-02-25] MEDS: ENOXAPARIN SODIUM 40 MG/0.4 ML SYRINGE SQ SCH (08:52)
[2017-02-25] MEDS: PANTOPRAZOLE SOD 40 MG DELAYED RELEASE TAB PO SCH (08:53)
[2017-02-25] MEDS: ASPIRIN EC 81 MG TABEC PO SCH (08:53)
[2017-02-25] MEDS: POLYETHYLENE GLYCOL 17 GM PKG PO SCH (08:54)
[2017-02-25] MEDS: DOCUSATE SODIUM 100 MG CAP PO SCH ×2 (08:54→22:03)
[2017-02-25] MEDS: LACTULOSE SYRUP 20 GM/30 ML CUP PO SCH (08:54)
[2017-02-25] MEDS: SODIUM CHLORIDE 0.9% FLUSH 10 ML FLUSH IV FLUSH SCH ×2 (08:55→22:03)
[2017-02-25] MEDS: TIMOLOL MALEATE 0.5% OPHT SOLN 5 ML BTL EACH EYE SCH ×2 (08:55→22:04)
[2017-02-25 09:05] VITALS: BP 114/73; PULSE 110; RESP 20; TEMP 95.7; O2SAT 95
[2017-02-25 11:30] VITALS: BP 128/63; PULSE 71; RESP 20; TEMP 95.5; O2SAT 95
[2017-02-25 11:50] LABS: AUTOMATED NEUTROPHIL # 13.6 TH/MM3 (1.8-7.7); BASOPHIL % 0.2 % (0.0-2.0); EOSINOPHIL # 0.5 TH/MM3 (0-0.4); EOSINOPHIL % 3.1 % (0.0-4.0); HEMATOCRIT 39.5 % (39.0-51.0); HEMO FLAGS DIFF FINAL; LYMPH % 4.4 % (9.0-44.0); LYMPHOCYTE # 0.7 TH/MM3 (1.0-4.8); MEAN CELL VOLUME 93.4 FL (80.0-100.0); MEAN CORPUSCULAR HEMOGLOBIN 30.6 PG (27.0-34.0); MEAN CORPUSCULAR HGB CONC 32.8 % (32.0-36.0); MONO % 10.5 % (0.0-8.0); NEUT % 81.8 % (16.0-70.0); PLATELET COUNT 219 TH/MM3 (150-450); RED BLOOD COUNT 4.22 MIL/MM3 (4.50-5.90); RED CELL DISTRIBUTION WIDTH 15.4 % (11.6-17.2); WHITE BLOOD COUNT 16.6 TH/MM3 (4.0-11.0)
[2017-02-25 12:20] LABS: BICARBONATE 24.4 MEQ/L (21.0-32.0); MAGNESIUM 2.3 MG/DL (1.5-2.5); POTASSIUM 4.4 MEQ/L (3.5-5.1)
[2017-02-25] MEDS: GABAPENTIN 300 MG CAP PO SCH ×4 (12:26→22:10)
[2017-02-25] MEDS: ACETAMINOPHEN/HYDROcodone 325 MG/10 MG TAB PO PRN ×2 (12:29→22:02)
--- NOTE | 2017-02-25 12:39 | HHI.NSPN ---
History Chief Complaint: Incisional pain but controlled. Interval History 02/20/17: Pt awake sitting up in chair. 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 Denies radiculopathy into the lower extremities. He states he has stable paresthesias or numbness feet and hands from his neuropathy. 02/24/17: Pt awake and alert, sitting up in chair. Complains of incisional back pain but no radiculopathy in LEs. Paresthesias in feet stable, hx of neuropathy. He ambulates but acknowledges he needs assistance getting oob and out of chair. Agrees he may need short term rehab stay. 02/25/17: Pt sitting up in chair. Complains of some sob when moving. Transfer to rehab was held yesterday secondary to reports pt desaturates when ambulating to 88. He states when sitting in chair no sob. No chest pain. He has Incisional back pain. No radiculopathy in LEs. Stable paresthesias in feet from neuropathy. Review of Systems General: Negative for: fever, chills, insomnia Respiratory: Positive for: shortness of breath (with activity not at rest.), Negative for: cough, sputum Cardiovascular: Negative for: chest pain, palpitations, orthopnea Gastrointestinal: Negative for: nausea, vomitting, diarrhea, constipation Exam Results Vital Signs Date Time Temp Pulse Resp B/P Pulse Ox O2 Delivery O2 Flow Rate FiO2 02/25/17 11:30 95.5 71 20 128/63 95 Intake and Output 02/24/17 02/24/17 02/25/17 08:00 16:00 00:00 Intake Total 360 ml 240 ml Balance 360 ml 240 ml Physical Examination Resp: CTA bilaterally Heart: NSR no murmurs Abd: Soft positive bs Skin: no cyanosis or erythema. RN last night changed bandage and reports clean and dry. He has bilateral LE moderate edema, compression stockings in place. No signs of DVT. Muscle: Moves LEs with good strength sitting up in chair with brace on. Neuro: Pt awake and alert. follows commands well. speech clear and appropriate. Neuropathy in feet. Lab, Micro, Other Results Last Impressions Chest X-Ray 02/24/17 0000 Signed Impressions: Service Date/Time: Friday, February 24, 2017 16:58 - CONCLUSION: Symmetrically diminished aeration. Adriel Alaniz MD Lumbar Spine X-Ray 02/19/17 0000 Signed Impressions: Service Date/Time: Sunday, February 19, 2017 08:46 - CONCLUSION: 1. Postsurgical changes as above. Georges Cardozo MD Laboratory Tests Test 02/25/17 10:12 White Blood Count 16.6 TH/MM3 Red Blood Count 4.22 MIL/MM3 Hemoglobin 12.9 GM/DL Hematocrit 39.5 % Mean Corpuscular Volume 93.4 FL Mean Corpuscular Hemoglobin 30.6 PG Mean Corpuscular Hemoglobin 32.8 % Concent Red Cell Distribution Width 15.4 % Platelet Count 219 TH/MM3 Mean Platelet Volume 8.3 FL Neutrophils (%) (Auto) 81.8 % Lymphocytes (%) (Auto) 4.4 % Monocytes (%) (Auto) 10.5 % Eosinophils (%) (Auto) 3.1 % Basophils (%) (Auto) 0.2 % Neutrophils # (Auto) 13.6 TH/MM3 Lymphocytes # (Auto) 0.7 TH/MM3 Monocytes # (Auto) 1.7 TH/MM3 Eosinophils # (Auto) 0.5 TH/MM3 Basophils # (Auto) 0.0 TH/MM3 CBC Comment DIFF FINAL Differential Comment 02/24/17 02/24/17 02/25/17 15:00 23:00 07:00 Intake Total 0 ml 240 ml Balance 0 ml 240 ml Intake Oral 0 ml 240 ml # Voids 3 1 # Bowel Movements 1 0 Medical Decision Making Impression and Plan A: 81 y/o M s/p L4, L5 and S1 decompressive laminectomy with medial facetectomy and foraminotomy and L5/S1 TLIF with cage and pedicle screw fixation. P: We are looking into rehab options until pt more confident with getting up oob on his own. Pt was accepted to rehab but placed on hold. Rehab was placed on hold yesterday when it was reported that pt desaturates to 88 with walking, improved to 90s with oxygen and then placed back on RA and maintained 90s O2 Sat. Medicine reconsulted, appreciate their assistance. Johny Moore February 25, 2017 12:38
--- NOTE | 2017-02-25 15:48 | HHI.PR ---
Subjective Remarks Pt has been desaturating when ambulating into the high 80's He complains of swelling in his LE. Pt has not been using his spirometer much during this hospitalization. Objective Vitals Vital Signs Date Time Temp Pulse Resp B/P Pulse Ox O2 Delivery O2 Flow Rate FiO2 02/25/17 11:30 95.5 71 20 128/63 95 02/25/17 09:05 95.7 110 20 114/73 95 02/25/17 06:39 98.0 97 22 105/64 93 02/25/17 00:00 97.0 87 22 98/57 92 02/24/17 20:00 97.2 98 22 102/97 95 02/24/17 16:05 96.0 95 20 111/66 95 02/24/17 02/24/17 02/25/17 14:59 22:59 06:59 Intake Total 0 ml 240 ml Balance 0 ml 240 ml Intake Oral 0 ml 240 ml # Voids 3 1 # Bowel Movements 1 0 Result Diagram: 02/25/17 1012 02/25/17 1012 Other Results Laboratory Tests Test 02/25/17 10:12 White Blood Count 16.6 TH/MM3 Red Blood Count 4.22 MIL/MM3 Hemoglobin 12.9 GM/DL Hematocrit 39.5 % Mean Corpuscular Volume 93.4 FL Mean Corpuscular Hemoglobin 30.6 PG Mean Corpuscular Hemoglobin 32.8 % Concent Red Cell Distribution Width 15.4 % Platelet Count 219 TH/MM3 Mean Platelet Volume 8.3 FL Neutrophils (%) (Auto) 81.8 % Lymphocytes (%) (Auto) 4.4 % Monocytes (%) (Auto) 10.5 % Eosinophils (%) (Auto) 3.1 % Basophils (%) (Auto) 0.2 % Neutrophils # (Auto) 13.6 TH/MM3 Lymphocytes # (Auto) 0.7 TH/MM3 Monocytes # (Auto) 1.7 TH/MM3 Eosinophils # (Auto) 0.5 TH/MM3 Basophils # (Auto) 0.0 TH/MM3 CBC Comment DIFF FINAL Differential Comment Sodium Level 133 MEQ/L Potassium Level 4.4 MEQ/L Chloride Level 98 MEQ/L Carbon Dioxide Level 24.4 MEQ/L Anion Gap 11 MEQ/L Blood Urea Nitrogen 29 MG/DL Creatinine 1.50 MG/DL Estimat Glomerular Filtration 45 ML/MIN Rate Random Glucose 164 MG/DL Calcium Level 10.8 MG/DL Magnesium Level 2.3 MG/DL Imaging Last Impressions Chest X-Ray 02/24/17 0000 Signed Impressions: Service Date/Time: Friday, February 24, 2017 16:58 - CONCLUSION: Symmetrically diminished aeration. Adriel Alaniz MD Lumbar Spine X-Ray 02/19/17 0000 Signed Impressions: Service Date/Time: Sunday, February 19, 2017 08:46 - CONCLUSION: 1. Postsurgical changes as above. Georges Cardozo MD \ Objective Remarks General: NAD, AAOx3 Chest: Minimal crackles at the left base Cardiac: Regular Abd: +BS, soft ND/NT Ext: Bilateral LE 1-2+ pitting edema to the thighs A/P Problem List: (1) Lumbar stenosis with neurogenic claudication Status: Acute Plan: - Pt s/p L5-S1 transforaminal interbody fusion/ L4, L5 and S1 decompressive laminectomy and fixation on 02/19/[address] Dumont. - Post-op pain control per Neurosurgery - PT daily - IS - Constipation precautions - LSO brace when out of bed - Pt has been having issues with oxygen desaturation when getting up to ambulate the last day or so. He is notably swollen on bilateral LE with pitting edema to the thighs. We will keep the pt and try to diurese him with Lasix IV once tonight and monitor BP closely. - His weight has increased from 104Kg on 02/20 to 121Kg today. - Repeat labs and CXR in AM - DVT prophylaxis (2) HTN (hypertension), benign Status: Chronic Plan: - Home meds continued with parameters - Monitor (3) Diabetes mellitus type 2, noninsulin dependent Status: Chronic Plan: - NovoLog SSI - Accu checks - Metformin continued (4) Hyperlipidemia Status: Chronic Plan: - Cont. home meds (5) KARYNA (obstructive sleep apnea) Status: Chronic Assessment and Plan Patient examined. Assessment and plan formulated with Deysi Andrew PA-C. I agree with the above. Deysi Andrew February 25, 2017 15:48 [place] Holman DO February 27, 2017 15:32
[2017-02-25] MEDS ORDERED: FUROSEMIDE 40 MG/4 ML VIAL IV PUSH ONE (16:00)
[2017-02-25 16:54] VITALS: BP 107/74; PULSE 95; RESP 20; TEMP 96; O2SAT 97
[2017-02-25] MEDS ORDERED: FUROSEMIDE 40 MG/4 ML VIAL IV PUSH SCH (18:00)
[2017-02-25 20:00] VITALS: BP 102/66; PULSE 102; RESP 22; TEMP 98.4; O2SAT 95
[2017-02-25] MEDS: CYCLOBENZAPRINE HCL 10 MG TAB PO PRN (22:02)
[2017-02-25] MEDS: traZODone HCL 50 MG TAB PO SCH (22:03)
[2017-02-25] MEDS: ATORVASTATIN 10 MG TAB PO SCH (22:03)
[2017-02-25] MEDS: LATANOPROST 0.005% OPHT SOLN 2.5 ML BTL EACH EYE SCH (22:04)
[2017-02-26] VITALS: BP 89/66; PULSE 95; RESP 22; TEMP 98.8; O2SAT 91
[2017-02-26 04:00] VITALS: BP 101/68; PULSE 95; RESP 22; TEMP 97; O2SAT 22; O2SAT 95
[2017-02-26] MEDS: INSULIN NovoLIN REGULAR SUPPLEMENTAL SCALE SQ SCH ×4 (06:32→21:00)
[2017-02-26 08:49] VITALS: BP 93/63; PULSE 102; RESP 18; TEMP 96.1; O2SAT 95
[2017-02-26] MEDS: ENOXAPARIN SODIUM 40 MG/0.4 ML SYRINGE SQ SCH (08:51)
[2017-02-26] MEDS: ASPIRIN EC 81 MG TABEC PO SCH (08:52)
[2017-02-26] MEDS: TIMOLOL MALEATE 0.5% OPHT SOLN 5 ML BTL EACH EYE SCH ×2 (08:52→21:57)
[2017-02-26] MEDS: PANTOPRAZOLE SOD 40 MG DELAYED RELEASE TAB PO SCH (08:52)
[2017-02-26] MEDS: SODIUM CHLORIDE 0.9% FLUSH 10 ML FLUSH IV FLUSH SCH ×2 (08:52→22:05)
[2017-02-26] MEDS: LACTULOSE SYRUP 20 GM/30 ML CUP PO SCH (08:52)
[2017-02-26] MEDS: DOCUSATE SODIUM 100 MG CAP PO SCH ×2 (08:52→21:57)
[2017-02-26] MEDS: POLYETHYLENE GLYCOL 17 GM PKG PO SCH (08:52)
[2017-02-26 09:47] LABS: AUTOMATED NEUTROPHIL # 14.4 TH/MM3 (1.8-7.7); BASOPHIL # 0.1 TH/MM3 (0-0.2); BASOPHIL % 0.3 % (0.0-2.0); EOSINOPHIL % 5.5 % (0.0-4.0); HEMATOCRIT 38.3 % (39.0-51.0); HEMO FLAGS DIFF FINAL; LYMPH % 4.1 % (9.0-44.0); LYMPHOCYTE # 0.7 TH/MM3 (1.0-4.8); MEAN CELL VOLUME 92.4 FL (80.0-100.0); MEAN CORPUSCULAR HEMOGLOBIN 31.7 PG (27.0-34.0); MEAN CORPUSCULAR HGB CONC 34.3 % (32.0-36.0); MONO % 9.6 % (0.0-8.0); NEUT % 80.5 % (16.0-70.0); PLATELET COUNT 272 TH/MM3 (150-450); RED BLOOD COUNT 4.15 MIL/MM3 (4.50-5.90); RED CELL DISTRIBUTION WIDTH 15.5 % (11.6-17.2); WHITE BLOOD COUNT 17.9 TH/MM3 (4.0-11.0)
--- NOTE | 2017-02-26 09:58 | RADRPT ---
EXAM DATE/TIME: 02/26/2017 09:16 [facility] COMPARISON: CHEST PA & LAT, February 24, 2017, 16:58. INDICATIONS : Volume overload post lumbar fusion. MEDICAL HISTORY : Renal failure, chronic. Osteoarthritis. Diabetic. TIA. SURGICAL HISTORY : Fusion, lumbar. Appendectomy. Hernia repair. ENCOUNTER: Subsequent ACUITY: 1 week PAIN SCORE: 6/10 LOCATION: chest FINDINGS: PA and lateral views of the chest demonstrate the lungs to be symmetrically aerated without evidence of mass, infiltrate or effusion. The cardiomediastinal contours are unremarkable. Osseous structure s are intact. CONCLUSION: Normal examination. Lamin Spicer MD on February 26, 2017 at 9:57 Board Certified Radiologist. This report was verified electronically.
[2017-02-26 10:21] LABS: BICARBONATE 28.8 MEQ/L (21.0-32.0); MAGNESIUM 2.4 MG/DL (1.5-2.5); POTASSIUM 4.4 MEQ/L (3.5-5.1)
[2017-02-26] MEDS: ACETAMINOPHEN/HYDROcodone 325 MG/10 MG TAB PO PRN ×2 (11:47→18:20)
[2017-02-26] MEDS: GABAPENTIN 300 MG CAP PO SCH ×4 (11:48→21:56)
[2017-02-26 12:00] VITALS: BP 88/60; PULSE 91; RESP 18; TEMP 95.2; O2SAT 93
--- NOTE | 2017-02-26 12:54 | HHI.PR ---
Subjective Remarks Pt sitting in chair, legs dangling. Pt still very swollen He has been urinating frequently but no output has been recorded. Objective Vitals Vital Signs Date Time Temp Pulse Resp B/P Pulse Ox O2 Delivery O2 Flow Rate FiO2 02/26/17 08:49 96.1 102 18 93/63 95 02/26/17 04:00 97.0 95 22 101/68 95 02/26/17 00:00 98.8 95 22 89/66 91 02/25/17 20:00 98.4 102 22 102/66 95 02/25/17 16:54 96.0 95 20 107/74 97 02/25/17 02/25/17 02/26/17 15:00 23:00 07:00 Intake Total 240 ml 440 ml Balance 240 ml 440 ml Intake Oral 240 ml 440 ml # Voids 3 2 # Bowel Movements 1 0 Result Diagram: 02/26/17 0933 02/26/17 0933 Other Results Laboratory Tests Test 02/25/17 02/26/17 10:12 09:33 White Blood Count 16.6 TH/MM3 17.9 TH/MM3 Red Blood Count 4.22 MIL/MM3 4.15 MIL/MM3 Hemoglobin 12.9 GM/DL 13.1 GM/DL Hematocrit 39.5 % 38.3 % Mean Corpuscular Volume 93.4 FL 92.4 FL Mean Corpuscular Hemoglobin 30.6 PG 31.7 PG Mean Corpuscular Hemoglobin 32.8 % 34.3 % Concent Red Cell Distribution Width 15.4 % 15.5 % Platelet Count 219 TH/MM3 272 TH/MM3 Mean Platelet Volume 8.3 FL 7.7 FL Neutrophils (%) (Auto) 81.8 % 80.5 % Lymphocytes (%) (Auto) 4.4 % 4.1 % Monocytes (%) (Auto) 10.5 % 9.6 % Eosinophils (%) (Auto) 3.1 % 5.5 % Basophils (%) (Auto) 0.2 % 0.3 % Neutrophils # (Auto) 13.6 TH/MM3 14.4 TH/MM3 Lymphocytes # (Auto) 0.7 TH/MM3 0.7 TH/MM3 Monocytes # (Auto) 1.7 TH/MM3 1.7 TH/MM3 Eosinophils # (Auto) 0.5 TH/MM3 1.0 TH/MM3 Basophils # (Auto) 0.0 TH/MM3 0.1 TH/MM3 CBC Comment DIFF FINAL DIFF FINAL Differential Comment Sodium Level 133 MEQ/L 134 MEQ/L Potassium Level 4.4 MEQ/L 4.4 MEQ/L Chloride Level 98 MEQ/L 98 MEQ/L Carbon Dioxide Level 24.4 MEQ/L 28.8 MEQ/L Anion Gap 11 MEQ/L 7 MEQ/L Blood Urea Nitrogen 29 MG/DL 34 MG/DL Creatinine 1.50 MG/DL 1.62 MG/DL Estimat Glomerular Filtration 45 ML/MIN 41 ML/MIN Rate Random Glucose 164 MG/DL 160 MG/DL Calcium Level 10.8 MG/DL 11.5 MG/DL Magnesium Level 2.3 MG/DL 2.4 MG/DL Imaging Last Impressions Chest X-Ray 02/24/17 0000 Signed Impressions: Service Date/Time: Friday, February 24, 2017 16:58 - CONCLUSION: Symmetrically diminished aeration. Adriel Alaniz MD Lumbar Spine X-Ray 02/19/17 0000 Signed Impressions: Service Date/Time: Sunday, February 19, 2017 08:46 - CONCLUSION: 1. Postsurgical changes as above. Georges Cardozo MD \ Objective Remarks General: NAD, AAOx3 Chest: CTA Cardiac: Regular Abd: +BS, soft ND/NT Ext: Bilateral LE 2+ pitting edema to the thighs A/P Problem List: (1) Lumbar stenosis with neurogenic claudication Status: Acute Plan: - Pt s/p L5-S1 transforaminal interbody fusion/ L4, L5 and S1 decompressive laminectomy and fixation on 02/19/[address] Dumont. - Post-op pain control per Neurosurgery - PT daily - IS - Constipation precautions - LSO brace when out of bed - Pt has been having issues with oxygen desaturation when getting up to ambulate. He is notably edematous on bilateral LE with pitting edema to the thighs. Pt was given a dose of Lasix IV once on . His weight is the same but no output was recorded by nursing staff. BP was low overnight and Cr increased to 1.6 so we will hold on giving more Lasix at this time. - Wrap both LE with HEATHER wraps bilaterally from the toes to the knees to try to push some of the fluid out. - CXR (5/24) was negative. - Keep legs elevated - Monitor BP closely. - His weight has increased from 104Kg on 02/20 to 121Kg today. - Daily weight and I&Os, this was reinforced with the nurse today as no output has been recorded and the pt was not weighed on a bedside standup scale as ordered. Requested a weight to be done today on a stand up scale. - DVT prophylaxis (2) HTN (hypertension), benign Status: Chronic Plan: - Home meds have been held due to hypotension during this admission - Monitor (3) Diabetes mellitus type 2, noninsulin dependent Status: Chronic Plan: - NovoLog SSI - Accu checks - Metformin continued (4) Hyperlipidemia Status: Chronic Plan: - Cont. home meds (5) KARYNA (obstructive sleep apnea) Status: Chronic Deysi Andrew February 26, 2017 12:53 [place] Holman DO February 27, 2017 15:32
[2017-02-26 16:00] VITALS: BP 105/78; PULSE 98; RESP 18; TEMP 95.7; O2SAT 95
--- NOTE | 2017-02-26 17:22 | HHI.NSPN ---
History Chief Complaint: Incisional pain but controlled. Interval History 81-year-old gentleman who is now postop day #7 status post L4-S1 laminectomy with L5-S1 TLIF. Minimal incisional pain and resolved lower extremity symptoms. Ambulating and voiding well. Slight dyspnea when he is ambulating but comfortable at rest. Follow-up chest x-ray is clear. Being diuresed as per the medical service. Exam Results Vital Signs Date Time Temp Pulse Resp B/P Pulse Ox O2 Delivery O2 Flow Rate FiO2 02/26/17 16:00 95.7 98 18 105/78 95 Intake and Output 02/25/17 02/25/17 02/26/17 08:00 16:00 00:00 Intake Total 240 ml 220 ml Balance 240 ml 220 ml Physical Examination Resp: CTA bilaterally Heart: NSR no murmurs Abd: Soft positive bs Skin: no cyanosis or erythema. Incision site clean and dry. He has bilateral LE moderate edema, compression stockings in place. No signs of DVT. Muscle: Moves LEs with good strength sitting up in chair with brace on. Neuro: Pt awake and alert. follows commands well. speech clear and appropriate. Neuropathy in feet. Medical Decision Making Impression and Plan s/p L4-S1 laminectomy with L5-S1 TLIF postoperative day #7. Pulmonary condition being managed by the medical service. Continue with the SCDs for DVT prophylaxis and Lovenox. Out of bed with physical therapy. Stable for discharge from neurosurgical standpoint when cleared by medical service. Dexter Dumont MD February 26, 2017 17:22 Dexter Dumont MD February 26, 2017 17:22
[2017-02-26 20:00] VITALS: BP 110/67; PULSE 101; RESP 24; TEMP 97.6; O2SAT 93
[2017-02-26] MEDS: ATORVASTATIN 10 MG TAB PO SCH (21:56)
[2017-02-26] MEDS: LATANOPROST 0.005% OPHT SOLN 2.5 ML BTL EACH EYE SCH (21:57)
[2017-02-26] MEDS: traZODone HCL 50 MG TAB PO SCH (21:57)
[2017-02-26] MEDS: CYCLOBENZAPRINE HCL 10 MG TAB PO PRN (21:59)
[2017-02-27] VITALS (9 sets, daily range): BP systolic 90–124; BP diastolic 56–81; PULSE 85–122; RESP 18–28; TEMP 96.4–98.6; O2SAT 90–97
[2017-02-27] MEDS: ACETAMINOPHEN/HYDROcodone 325 MG/10 MG TAB PO PRN ×3 (02:04→20:39)
[2017-02-27] MEDS: INSULIN NovoLIN REGULAR SUPPLEMENTAL SCALE SQ SCH ×2 (06:42→20:47)
[2017-02-27] MEDS: SODIUM CHLORIDE 0.9% FLUSH 10 ML FLUSH IV FLUSH SCH ×2 (09:00→20:12)
[2017-02-27 09:08] LABS: AUTOMATED NEUTROPHIL # 15.3 TH/MM3 (1.8-7.7); BASOPHIL # 0.1 TH/MM3 (0-0.2); BASOPHIL % 0.3 % (0.0-2.0); EOSINOPHIL # 1.4 TH/MM3 (0-0.4); EOSINOPHIL % 7.4 % (0.0-4.0); HEMATOCRIT 40.1 % (39.0-51.0); HEMO FLAGS DIFF FINAL; LYMPH % 3.9 % (9.0-44.0); LYMPHOCYTE # 0.8 TH/MM3 (1.0-4.8); MEAN CELL VOLUME 94.1 FL (80.0-100.0); MEAN CORPUSCULAR HEMOGLOBIN 31.2 PG (27.0-34.0); MEAN CORPUSCULAR HGB CONC 33.2 % (32.0-36.0); MONO % 10.7 % (0.0-8.0); NEUT % 77.7 % (16.0-70.0); PLATELET COUNT 247 TH/MM3 (150-450); RED BLOOD COUNT 4.26 MIL/MM3 (4.50-5.90); RED CELL DISTRIBUTION WIDTH 15.6 % (11.6-17.2); WHITE BLOOD COUNT 19.7 TH/MM3 (4.0-11.0)
[2017-02-27] MEDS: POLYETHYLENE GLYCOL 17 GM PKG PO SCH (09:10)
[2017-02-27] MEDS: ENOXAPARIN SODIUM 40 MG/0.4 ML SYRINGE SQ SCH (09:11)
[2017-02-27] MEDS: DOCUSATE SODIUM 100 MG CAP PO SCH ×2 (09:12→20:38)
[2017-02-27] MEDS: PANTOPRAZOLE SOD 40 MG DELAYED RELEASE TAB PO SCH (09:12)
[2017-02-27] MEDS: ASPIRIN EC 81 MG TABEC PO SCH (09:12)
[2017-02-27] MEDS: LACTULOSE SYRUP 20 GM/30 ML CUP PO SCH (09:22)
[2017-02-27 09:49] LABS: BICARBONATE 25.9 MEQ/L (21.0-32.0); MAGNESIUM 2.5 MG/DL (1.5-2.5); POTASSIUM 4.5 MEQ/L (3.5-5.1)
[2017-02-27] MEDS ORDERED: NS IV SCH (11:15)
[2017-02-27] MEDS ORDERED: KCL IV SCH (11:15)
--- NOTE | 2017-02-27 11:56 | HHI.NSPN ---
History Chief Complaint: Incisional pain but controlled. Interval History 02/20/17: Pt awake sitting up in chair. Complains of incision back pain but controlled with W[employer]ACHINE [employer]. Denies radiculopathy into the lower extremities. He states he has stable paresthesias or numbness feet and hands from his neuropathy. 02/24/17: Pt awake and alert, sitting up in chair. Complains of incisional back pain but no radiculopathy in LEs. Paresthesias in feet stable, hx of neuropathy. He ambulates but acknowledges he needs assistance getting oob and out of chair. Agrees he may need short term rehab stay. 02/25/17: Pt sitting up in chair. Complains of some sob when moving. Transfer to rehab was held yesterday secondary to reports pt desaturates when ambulating to 88. He states when sitting in chair no sob. No chest pain. He has Incisional back pain. No radiculopathy in LEs. Stable paresthesias in feet from neuropathy. 02/27/17: Pt awake and alert. Sitting up in chair. No radiculopathy in LEs. Hx of Neuropathy in feet. Pt with some desaturation today with ambulation pr RN. Review of Systems General: Negative for: fever, chills, insomnia Respiratory: Positive for: shortness of breath (with ambulation.), Negative for: cough, sputum Cardiovascular: Negative for: chest pain, palpitations, orthopnea Gastrointestinal: Negative for: nausea, vomitting, diarrhea, constipation Exam Results Vital Signs Date Time Temp Pulse Resp B/P Pulse Ox O2 Delivery O2 Flow Rate FiO2 02/27/17 08:00 97.6 122 18 108/73 95 Intake and Output 02/26/17 02/26/17 02/27/17 08:00 16:00 00:00 Intake Total 220 ml 480 ml Balance 220 ml 480 ml Physical Examination Resp: CTA bilaterally Heart: NSR no murmurs Abd: Soft positive bs Skin: no cyanosis or erythema. He has bilateral LE moderate edema, compression stockings in place. No signs of DVT. Muscle: Moves LEs with good strength sitting up in chair with brace on. Neuro: Pt awake and alert. follows commands well. speech clear and appropriate. Neuropathy in feet. Lab, Micro, Other Results Last Impressions Chest X-Ray 02/26/17 0800 Signed Impressions: Service Date/Time: Sunday, February 26, 2017 09:16 - CONCLUSION: Normal examination. Lamin Spicer MD Lumbar Spine X-Ray 02/19/17 0000 Signed Impressions: Service Date/Time: Sunday, February 19, 2017 08:46 - CONCLUSION: 1. Postsurgical changes as above. Georges Cardozo MD Laboratory Tests Test 02/27/17 08:28 White Blood Count 19.7 TH/MM3 Red Blood Count 4.26 MIL/MM3 Hemoglobin 13.3 GM/DL Hematocrit 40.1 % Mean Corpuscular Volume 94.1 FL Mean Corpuscular Hemoglobin 31.2 PG Mean Corpuscular Hemoglobin 33.2 % Concent Red Cell Distribution Width 15.6 % Platelet Count 247 TH/MM3 Mean Platelet Volume 8.3 FL Neutrophils (%) (Auto) 77.7 % Lymphocytes (%) (Auto) 3.9 % Monocytes (%) (Auto) 10.7 % Eosinophils (%) (Auto) 7.4 % Basophils (%) (Auto) 0.3 % Neutrophils # (Auto) 15.3 TH/MM3 Lymphocytes # (Auto) 0.8 TH/MM3 Monocytes # (Auto) 2.1 TH/MM3 Eosinophils # (Auto) 1.4 TH/MM3 Basophils # (Auto) 0.1 TH/MM3 CBC Comment DIFF FINAL Differential Comment Sodium Level 132 MEQ/L Potassium Level 4.5 MEQ/L Chloride Level 96 MEQ/L Carbon Dioxide Level 25.9 MEQ/L Anion Gap 10 MEQ/L Blood Urea Nitrogen 42 MG/DL Creatinine 1.76 MG/DL Estimat Glomerular Filtration 37 ML/MIN Rate Random Glucose 132 MG/DL Calcium Level 11.7 MG/DL Protein Corrected Calcium MG/DL Magnesium Level 2.5 MG/DL Total Protein 6.2 GM/DL 02/26/17 02/26/17 02/27/17 15:00 23:00 07:00 Intake Total 480 ml Balance 480 ml Intake Oral 480 ml # Voids 8 1 1 # Bowel Movements 0 Medical Decision Making Impression and Plan A: 81 y/o M s/p L4, L5 and S1 decompressive laminectomy with medial facetectomy and foraminotomy and L5/S1 TLIF with cage and pedicle screw fixation. P: We are looking into rehab options until pt more confident with getting up oob on his own. Pt was accepted to rehab but placed on hold. Medicine following. Appreciate their assistance. Johny Moore February 27, 2017 11:56
[2017-02-27] MEDS ORDERED: DIATRIZOATE MEGLUM/DIATRIZOATE SOD 9 ML CUP PO ONE (12:15)
[2017-02-27] MEDS: GABAPENTIN 300 MG CAP PO SCH ×2 (12:21→20:38)
[2017-02-27] MEDS: ONDANSETRON HCL 4 MG/2 ML VIAL IV PRN (12:40)
[2017-02-27 13:31] LABS: BICARBONATE 25.1 MEQ/L (21.0-32.0); POTASSIUM 4.5 MEQ/L (3.5-5.1)
--- NOTE | 2017-02-27 15:09 | HHI.PR ---
Subjective Remarks Pt very weak today and still desaturating when he stand up and appears more notably SOB today. Pt still very swollen in his LE but has LE wraps in place. Pts BP is still low. Objective Vitals Vital Signs Date Time Temp Pulse Resp B/P Pulse Ox O2 Delivery O2 Flow Rate FiO2 02/27/17 12:00 98.6 93 18 104/71 96 02/27/17 10:23 105 28 90/56 90 02/27/17 10:17 103 21 103/65 97 02/27/17 08:00 97.6 122 18 108/73 95 02/27/17 04:00 96.6 93 22 103/63 93 02/27/17 00:00 96.4 85 22 109/64 93 02/26/17 20:00 97.6 101 24 110/67 93 02/26/17 16:00 95.7 98 18 105/78 95 02/26/17 02/26/17 02/27/17 15:00 23:00 07:00 Intake Total 480 ml Balance 480 ml Intake Oral 480 ml # Voids 8 1 1 # Bowel Movements 0 Result Diagram: 02/27/17 0828 02/27/17 1235 Other Results Laboratory Tests Test 02/26/17 02/27/17 02/27/17 09:33 08:28 12:35 White Blood Count 17.9 TH/MM3 19.7 TH/MM3 Red Blood Count 4.15 MIL/MM3 4.26 MIL/MM3 Hemoglobin 13.1 GM/DL 13.3 GM/DL Hematocrit 38.3 % 40.1 % Mean Corpuscular Volume 92.4 FL 94.1 FL Mean Corpuscular Hemoglobin 31.7 PG 31.2 PG Mean Corpuscular Hemoglobin 34.3 % 33.2 % Concent Red Cell Distribution Width 15.5 % 15.6 % Platelet Count 272 TH/MM3 247 TH/MM3 Mean Platelet Volume 7.7 FL 8.3 FL Neutrophils (%) (Auto) 80.5 % 77.7 % Lymphocytes (%) (Auto) 4.1 % 3.9 % Monocytes (%) (Auto) 9.6 % 10.7 % Eosinophils (%) (Auto) 5.5 % 7.4 % Basophils (%) (Auto) 0.3 % 0.3 % Neutrophils # (Auto) 14.4 TH/MM3 15.3 TH/MM3 Lymphocytes # (Auto) 0.7 TH/MM3 0.8 TH/MM3 Monocytes # (Auto) 1.7 TH/MM3 2.1 TH/MM3 Eosinophils # (Auto) 1.0 TH/MM3 1.4 TH/MM3 Basophils # (Auto) 0.1 TH/MM3 0.1 TH/MM3 CBC Comment DIFF FINAL DIFF FINAL Differential Comment Sodium Level 134 MEQ/L 132 MEQ/L 133 MEQ/L Potassium Level 4.4 MEQ/L 4.5 MEQ/L 4.5 MEQ/L Chloride Level 98 MEQ/L 96 MEQ/L 98 MEQ/L Carbon Dioxide Level 28.8 MEQ/L 25.9 MEQ/L 25.1 MEQ/L Anion Gap 7 MEQ/L 10 MEQ/L 10 MEQ/L Blood Urea Nitrogen 34 MG/DL 42 MG/DL 45 MG/DL Creatinine 1.62 MG/DL 1.76 MG/DL 1.74 MG/DL Estimat Glomerular Filtration 41 ML/MIN 37 ML/MIN 38 ML/MIN Rate Random Glucose 160 MG/DL 132 MG/DL 146 MG/DL Calcium Level 11.5 MG/DL 11.7 MG/DL 11.7 MG/DL Magnesium Level 2.4 MG/DL 2.5 MG/DL Protein Corrected Calcium MG/DL MG/DL Total Protein 6.2 GM/DL 6.0 GM/DL Imaging Last Impressions Chest X-Ray 02/24/17 0000 Signed Impressions: Service Date/Time: Friday, February 24, 2017 16:58 - CONCLUSION: Symmetrically diminished aeration. Adriel Alaniz MD Lumbar Spine X-Ray 02/19/17 0000 Signed Impressions: Service Date/Time: Sunday, February 19, 2017 08:46 - CONCLUSION: 1. Postsurgical changes as above. Georges Cardozo MD \ Objective Remarks General: NAD, AAOx3 Chest: CTA but pt appears to have increased work of breathing. Cardiac: Regular Abd: +BS, soft ND/NT Ext: Bilateral LE wraps in place, legs still swollen A/P Problem List: (1) Lumbar stenosis with neurogenic claudication Status: Acute Plan: - Pt s/p L5-S1 transforaminal interbody fusion/ L4, L5 and S1 decompressive laminectomy and fixation on 02/19/[address] Dumont. - Post-op pain control per Neurosurgery - PT daily - IS - Constipation precautions - LSO brace when out of bed - Pt has been having issues with oxygen desaturation when getting up to ambulate. He is notably edematous on bilateral LE with pitting edema to the thighs. Pt was given a dose of Lasix IV once on . His weight is the same but no output was recorded by nursing staff. - BP was low overnight and Cr increased to 1.6 so we will hold on giving more Lasix on 02/26. - Pts labs were again abnormal today with worsening Cr to 1.76 and Na+ to 132. Pts Ca+ increased to 11.7 - Pts has baseline renal dysfunction but the NATHAN may be related to hypotension/ ATN. - Wrap both LE with HEATHER wraps bilaterally from the toes to the knees to try to push some of the fluid out. - CXR (02/26) was negative. - Keep legs elevated - Monitor BP closely. - His weight has increased from 104Kg on 02/20 to 121Kg per the chart. I had the pt weighed on a stand up bedside scale on 02/26 and he weighed 114.4Kg which is more likely his accurate weight. - He still has not had output recorded. - Daily weight and I&Os again stressed to nursing staff again today. The pt needs to be weighed on a bedside standup scale. - Pt is overall very weak and still desaturating when he stand up. - Check CT Chest/Abd/Pelvis to assess for an occult malignancy - Pt appears to be more SOB this afternoon. - Appears to be volume overloaded despite CXR not indicating that. - Will transfer to ICU for diuresis with close monitoring of his BP. - DVT prophylaxis (2) HTN (hypertension), benign Status: Chronic Plan: - See above. (3) Diabetes mellitus type 2, noninsulin dependent Status: Chronic Plan: - NovoLog SSI - Accu checks - Metformin continued (4) Hyperlipidemia Status: Chronic Plan: - Cont. home meds (5) KARYNA (obstructive sleep apnea) Status: Chronic Assessment and Plan Patient examined. Assessment and plan formulated with Deysi Andrew PA-C. I agree with the above. Pt with weight gain and b/l LE edema - Pt given single dose of lasix 40mg IV Pt's edema did NOT improved, but pt's renal function worsened. Today pt c/o worsening weakness and SOB CXR does NOT show CHF Today, pt's renal function continues to worsen and calcium is increasing. Underlying malignancy? Obtain CT chest/abd/pelvis - Case d/w Nephrology, Dr. Lyon. He will consult. - Pt is tachypneic and clinically worsening - lasix 80mg IV - transfer to ICU - suspect volume overload - Case d/w Dr. Campbell, Critical Care. He will consult Deysi Andrew February 27, 2017 15:09 [place] Holman DO February 27, 2017 15:40
[2017-02-27] MEDS ORDERED: FUROSEMIDE 100 MG/10 ML VIAL IV PUSH ONE (16:00)
--- NOTE | 2017-02-27 17:18 | PD.CONS ---
[facility] Service Nephrology Consult Requested By Reason for Consult Acute renal failure, edema Primary Care Physician Gagandeep Alejo MD History of Present Illness This is an 81 y/o male. He was admitted on 02/19 for lumbar surgery, is POD #5 today; he has had chronic pain for years. Other PMH of obesity, DM II , HTN, KARYNA, RLS, and CKD per lab work. His creatinine was 1.4 on arrival, improved to 1.2 but is 1.74 today. His calcium which was 9.1 on arrival, has increased to 11.7 today. WBC are 19. He has developed lower extremity edema over the past few days with weight gain of 10 kg, possibly more. We were consulted for fluid volume and renal management. Looking through his records, this month his creatinine was 1.03, GFR 78, giving him a baseline CKD 2. There is no UA available for analysis. He is awake, alert, denies pain. He has been urinating with urinal an has no reports of hesitancy, hematuria, dysuria, or other concerns. He does report poor oral intake, poor appetite, no nausea/ vomiting. His BP has been low, from into yesterday, with multiple readings of 80/60. He has also been tachypneic and short of breath. He has not been given any NSAIDs this admission. He is a full code. (Ivana Kessler) Review of Systems Constitutional: COMPLAINS OF: Fatigue, Weight gain, Change in appetite Respiratory: COMPLAINS OF: Shortness of breath, DENIES: Cough Cardiovascular: DENIES: Chest pain Gastrointestinal: DENIES: Abdominal pain Neurologic: DENIES: Headache (Ivana Kessler) Past Family Social History Allergies: Coded Allergies: No Known Allergies (Verified , 02/19/17) Past Medical History CKD 2, Creatinine 1.03, GFR 78 (February 2017) Chronic low back pain/Lumbar spinal stenosis/radiculopathy BPH Diabetes mellitus, type 2 HTN Hyperlipidemia Inflammatory polyarthritis Obesity Peripheral neuropathy KARYNA RLS Thrombocytopenia Cataracts Past Surgical History L5-S1 transforaminal interbody fusion/ L4, L5 and S1 decompressive laminectomy and fixation on 02/19/17 Appendectomy Lumbar diskectomy Inguinal hernia repair Sinus surgery Tonsillectomy/Adenoidectomy Reported Medications -Metformin 500 Mg PO BIDPC -Ambien 5 Mg PO HS PRN -Aspirin 81 Mg PO DAILY -Lipitor 10 Mg PO HS -Hydrochlorothiazide 25 Mg PO DAILY -Latanoprost Opth Drops 0.005% Drops 1 Drop EACH EYE HS -Losartan 25 Mg PO DAILY -Oxycodone-Acetaminophen 5-325 mg 0.5 Tab PO Q8HR PRN -Timolol Opth Drops 0.5 % Soln 1 Drop EACH EYE Q12HR -Trazodone 100 Mg PO HS -Gabapentin 300 Mg PO 5 capsules daily in divided dosed (2 tablets@1200,1 tablet @1700, 1 tablet @1900, 1 tablet @2100) -Ropinirole 0.5 Mg (1 tablet @1200, 1 tablet @1700, 2 tablets @2100) Active Ordered Medications Current Medications Medications (Trade) Dose Ordered Sig/Justin Route Start Time Stop Time Status Last Admin (Ecotrin Ec) 81 mg DAILY PO 02/20/17 09:00 02/27/17 09:12 (Lipitor) 10 mg HS PO 02/19/17 21:00 02/26/17 21:56 (Xalatan 0.005% Opth Soln) 1 drop HS EACH EYE 02/19/17 21:00 02/26/17 21:57 (Timoptic 0.5% Opth Soln) 1 drop Q12HR EACH EYE 02/19/17 21:00 02/26/17 21:57 (Desyrel) 100 mg HS PO 02/19/17 21:00 02/26/17 21:57 (Ambien) 5 mg HS PRN PO 02/19/17 12:30 (D50w (Vial) Inj) 50 ml UNSCH PRN IV 02/19/17 12:30 (Glucagon Inj) 1 mg UNSCH PRN OTHER 02/19/17 12:30 (Narcan Inj) 0.4 mg UNSCH PRN IV 02/19/17 12:30 (Benadryl Inj) 25 mg Q6H PRN IV 02/19/17 12:30 (NS Flush) 2 ml UNSCH PRN IV FLUSH 02/19/17 12:30 (NS Flush) 2 ml BID IV FLUSH 02/19/17 21:00 02/27/17 09:00 (Colace) 100 mg BID PO 02/19/17 21:00 02/27/17 09:12 (Milk Of Magnesia Liq) 30 ml DAILY PRN PO 02/19/17 12:30 (Mag-Al Plus Susp Liq) 30 ml Q6H PRN PO 02/19/17 12:30 (Protonix) 40 mg DAILY PO 02/20/17 09:00 02/27/17 09:12 (Zofran Inj) 4 mg Q6H PRN IV 02/19/17 12:30 02/27/17 12:40 ([place] 10-325 Mg) 1 tab Q4H PRN PO 02/19/17 12:30 02/27/17 14:04 ([place] 10-325 Mg) 2 tab Q4H PRN PO 02/19/17 12:30 02/26/17 11:47 (Flexeril) 10 mg Q8H PRN PO 02/19/17 12:30 02/26/17 21:59 (Catapres) 0.1 mg Q6H PRN PO 02/19/17 12:30 (Tylenol) 650 mg Q4H PRN PO 02/19/17 12:30 02/21/17 17:13 ([place]) 1 lozenge UNSCH PRN BUCCAL 02/19/17 12:30 (Miralax) 17 gm DAILY PO 02/20/17 09:00 02/27/17 09:10 (Lactulose Liq) 30 ml DAILY PRN PO 02/19/17 12:30 02/27/17 09:12 (Compazine Inj) 10 mg Q6H PRN IV PUSH 02/19/17 12:45 (Requip) 0.5 mg BID@12,17 PO 02/19/17 17:30 02/27/17 12:00 (Requip) 1 mg HS PO 02/19/17 21:00 02/26/17 21:59 (Lovenox Inj) 40 mg Q24H SQ 02/21/17 09:00 02/27/17 09:11 (Lactulose Liq) 30 ml DAILY PO 02/21/17 16:00 02/27/17 09:22 (Neurontin) 600 mg DAILY@12,21 PO 02/27/17 21:00 Family History no hx of renal disorders Social History no smoking or ETOH , lives with locally uses cane to ambulate 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, 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 (Ivana Kessler) Physical Exam Vital Signs Vital Signs Date Time Temp Pulse Resp B/P Pulse Ox O2 Delivery O2 Flow Rate FiO2 02/27/17 12:00 98.6 93 18 104/71 96 02/27/17 10:23 105 28 90/56 90 02/27/17 10:17 103 21 103/65 97 02/27/17 08:00 97.6 122 18 108/73 95 02/27/17 04:00 96.6 93 22 103/63 93 02/27/17 00:00 96.4 85 22 109/64 93 02/26/17 20:00 97.6 101 24 110/67 93 Physical Exam Pleasant elderly male, , eyes closed but awake oriented x 3, neurologically intact S1s2, regular rate without murmurs or rubs lungs: diminished in bases, clear in upper lobes Abd: round, firm, non tender (larger than usual), no rebound LSO brace in place Ext: 2+ edema to lower extremities SKin: intact Laboratory Laboratory Tests Test 02/27/17 02/27/17 08:28 12:35 White Blood Count 19.7 Red Blood Count 4.26 Hemoglobin 13.3 Hematocrit 40.1 Mean Corpuscular Volume 94.1 Mean Corpuscular Hemoglobin 31.2 Mean Corpuscular Hemoglobin 33.2 Concent Red Cell Distribution Width 15.6 Platelet Count 247 Mean Platelet Volume 8.3 Neutrophils (%) (Auto) 77.7 Lymphocytes (%) (Auto) 3.9 Monocytes (%) (Auto) 10.7 Eosinophils (%) (Auto) 7.4 Basophils (%) (Auto) 0.3 Neutrophils # (Auto) 15.3 Lymphocytes # (Auto) 0.8 Monocytes # (Auto) 2.1 Eosinophils # (Auto) 1.4 Basophils # (Auto) 0.1 CBC Comment DIFF FINAL Differential Comment Sodium Level 132 133 Potassium Level 4.5 4.5 Chloride Level 96 98 Carbon Dioxide Level 25.9 25.1 Anion Gap 10 10 Blood Urea Nitrogen 42 45 Creatinine 1.76 1.74 Estimat Glomerular Filtration 37 38 Rate Random Glucose 132 146 Calcium Level 11.7 11.7 Protein Corrected Calcium Magnesium Level 2.5 Total Protein 6.2 6.0 (Ivana Kessler) Result Diagram: 02/27/17 0828 02/27/17 1235 Imaging Last Impressions Chest X-Ray 02/26/17 0800 Signed Impressions: Service Date/Time: Sunday, February 26, 2017 09:16 - CONCLUSION: Normal examination. Lamin Spicer MD Lumbar Spine X-Ray 02/19/17 0000 Signed Impressions: Service Date/Time: Sunday, February 19, 2017 08:46 - CONCLUSION: 1. Postsurgical changes as above. Georges Cardozo MD (Ivana Kessler) Assessment and Plan Problem List: (1) NATHAN (acute kidney injury) Plan: History of CKD 2, baseline Creatinine 1.03, GFR 78 NATHAN from diminished renal perfusion due to hypotension, may have progressed to ATN electrolytes are unremarkable, he is fluid overloaded, see below at this time avoid nephrotoxic substances obtain UA for analysis, obtain urine electrolytes CT abd/pelvis is ordered for other reasons, but will evaluate for possible obstruction he will be transferred to ICU, a joy may be placed per car racer, follow urine output maintain adequate MAP > 65mmHg labs in am, check phosphorus level (2) Lumbar stenosis with neurogenic claudication Plan: s/p L5-S1 transforaminal interbody fusion/ L4, L5 and S1 decompressive laminectomy and fixation on 02/19/[address] Dumont. cleared for discharge when medical issues are managed per neurosurgery he declined rehab placement, home with home health care/PT/OT pain medications PRN (3) HTN (hypertension), benign Plan: BP borderline low, hold antihypertensives (4) Diabetes mellitus type 2, noninsulin dependent Plan: home metformin has been held continue insulin, follow glucose, goal 140-180 mg/dL (5) Edema Plan: given Lasix 80 mg IV today needs diuresis, begin Bumex 1 mg BID, titrate as tolerated/needed monitor renal response to diuretic therapy follow weights, I/O, limit oral fluid intake, avoid IVF ordered LOVE hose, to elevate, low Na diet (6) Hypercalcemia Plan: may be due to immobility check PTH, vitamin D levels CT abd/chest/pelvis to rule out malignancy per hospitalist follow calcium levels (Ivana Kessler) Assessment and Plan patient was seen and examined. Acute on CKD, lower extremity edema, hypercalcemia. Plan: Calcitonin 50 SC q 12 hours x 4 doses. Lower extremity doppler to rule out DVT Diuretics carefully. Hypercalcemia workup: PTH, PTH related peptide, SPEP, urine immunofixation. Patient reported that he has seen Dr. Greenberg in the past, I will request Dr. Greenberg to follow the patient from tomorrow. (Nathan Lyon MD) Ivana Kessler [facility] February 27, 2017 17:18 Nathan Lyon MD February 27, 2017 17:46
[2017-02-27] MEDS: BUMETANIDE INJ 1 MG/4 ML VIAL IV PUSH SCH (18:00)
--- NOTE | 2017-02-27 18:09 | RADRPT ---
EXAM DATE/TIME: 02/27/2017 17:10 [facility] COMPARISON: No previous studies available for comparison. INDICATIONS : Short of breath. RADIATION DOSE: 12.20 CTDIvol (mGy) ; Combined studies - Thorax/Abdomen/Pelvis MEDICAL HISTORY : Diabetes mellitus type 2. Hypertension. SURGICAL HISTORY : Fusion, lumbar. ENCOUNTER: Initial ACUITY: 1 day PAIN SCALE: 7/10 LOCATION: Bilateral chest TECHNIQUE: Volumetric scanning of the chest was performed. Using automated exposure control and adjustment of t he mA and/or kV according to patient size, radiation dose was kept as low as reasonably achievable to obtain optimal diagnostic quality images. FINDINGS: There is minimal basilar atelectasis or scarring. No significant pleural or pericardial effusion. Mil d coronary artery calcifications. Elevated right hemidiaphragm. No adenopathy. No acute bony abnormal ities. See abdomen CT for evaluation of infradiaphragmatic contents. Ms. at least moderate ascites and stran ding in the omentum. CONCLUSION: 1. Elevated right hemidiaphragm with basilar atelectasis and scarring. No effusions. No adenopathy. S ee abdomen CT for findings of abnormal fluid accumulation below the diaphragms. Hang Tyson MD on February 27, 2017 at 18:01 Board Certified Radiologist. This report was verified electronically.
--- NOTE | 2017-02-27 18:14 | RADRPT ---
EXAM DATE/TIME: 02/27/2017 17:13 [facility] COMPARISON: No previous studies available for comparison. INDICATIONS : Evaluate for hypercalcemia. ORAL CONTRAST: Prescribed oral contrast ingested. RADIATION DOSE: 12.20 CTDIvol (mGy) ; Combined studies - Thorax/Abdomen/Pelvis MEDICAL HISTORY : Diabetes mellitus type 2. Hypertension. SURGICAL HISTORY : Fusion, lumbar. ENCOUNTER: Initial ACUITY: 1 day PAIN SCALE: 7/10 LOCATION: Bilateral upper quadrant TECHNIQUE: Volumetric scanning of the abdomen and pelvis was performed. Using automated exposure control and ad justment of the mA and/or kV according to patient size, radiation dose was kept as low as reasonably achievable to obtain optimal diagnostic quality images. FINDINGS: Small to moderate diffuse ascites present. There is diffuse thickening and caking of the omentum. No well-defined mass demonstrated. Noncontrast appearance of the liver, spleen, pancreas, adrenal glands within normal limits. Both kidn eys appear small but otherwise normal. Stomach is only mildly distended at the time of imaging. Even accounting for this time there appears to be some wall thickening, especially along the greater curvature of the body. I don't see a definit e mass of the small or large bowel. No acute inflammatory changes are seen. There is no obstruction. I don't clearly see the appendix. There is a 2.6 cm umbilical hernia that contains fat and ascitic fluid. No bowel herniation. No lytic or sclerotic lesions seen of the visualized osseous structures. CONCLUSION: 1. Ascites and diffuse omental caking/thickening typical of peritoneal carcinomatosis. Primary uncert ain but possibly gastric as there appears to be some wall thickening along the greater curvature of t he body. Direct visualization with endoscopy recommended. 2. I don't clearly see the appendix. 3. No other evidence of metastatic disease. 4. Umbilical hernia. Adriel Krueger MD on February 27, 2017 at 18:07 Board Certified Radiologist. This report was verified electronically.
--- NOTE | 2017-02-27 19:17 | PD.CONS ---
HPI Service Critical Care Medicine Consult Requested By [facility] Reason for Consult SOB and generalized edema Primary Care Physician Gagandeep Alejo MD History of Present Illness 81 y/o man s/p lumbar spine surgery for intractable pain. Uneventful perioperative course but has retained significant amount of fluid manifested as ascites and peripheral edema, particularly prominent in the legs. His SOB has improved modestly after diuresis. CXR shows elevated right diaphragm and good lung expansion. No signs of venous congestion. CT abdomen concerning for metastatic disease and ascites. He denies chest pain or abdominal pain. Review of Systems Constitutional: DENIES: Diaphoretic episodes, Fatigue, Fever, Weight gain, Weight loss, Chills, Dizziness, Change in appetite, Night Sweats Endocrine: DENIES: Heat/cold intolerance, Polydipsia, Polyuria, Polyphagia Eyes: DENIES: Blurred vision, Diplopia, Eye inflammation, Eye pain, Vision loss , Photosensitivity, Double Vision Ears, nose, mouth, throat: DENIES: Tinnitus, Hearing loss, Vertigo, Nasal discharge, Oral lesions, Throat pain, Hoarseness, Ear Pain, Running Nose, Epistaxis, Sinus Pain, Odynophagia Respiratory: COMPLAINS OF: Shortness of breath, DENIES: Apneas, Cough, Snoring , Wheezing, Hemoptysis, Sputum production Cardiovascular: DENIES: Chest pain, Palpitations, Syncope, Dyspnea on Exertion , PND, Lower Extremity Edema, Orthopnea, Claudication Gastrointestinal: DENIES: Abdominal pain, Black stools, Bloody stools, Constipation, Diarrhea, Nausea, Vomiting, Difficulty Swallowing, Anorexia Psychiatric: DENIES: Anxiety, Confusion, Mood changes, Depression, Hallucinations, Agitation, Suicidal Ideation, Homicidal Ideation, Delusions Past Family Social History Allergies: Coded Allergies: No Known Allergies (Verified , 02/19/17) Past Medical History Allergies: Coded Allergies: No Known Allergies (Verified , 02/19/17) Past Medical History CKD 2, Creatinine 1.03, GFR 78 (February 2017) Chronic low back pain/Lumbar spinal stenosis/radiculopathy BPH Diabetes mellitus, type 2 HTN Hyperlipidemia Inflammatory polyarthritis Obesity Peripheral neuropathy KARYNA RLS Thrombocytopenia Cataracts Past Surgical History L5-S1 transforaminal interbody fusion/ L4, L5 and S1 decompressive laminectomy and fixation on 02/19/17 Appendectomy Lumbar diskectomy Inguinal hernia repair Sinus surgery Tonsillectomy/Adenoidectomy Reported Medications -Metformin 500 Mg PO BIDPC -Ambien 5 Mg PO HS PRN -Aspirin 81 Mg PO DAILY -Lipitor 10 Mg PO HS -Hydrochlorothiazide 25 Mg PO DAILY -Latanoprost Opth Drops 0.005% Drops 1 Drop EACH EYE HS -Losartan 25 Mg PO DAILY -Oxycodone-Acetaminophen 5-325 mg 0.5 Tab PO Q8HR PRN -Timolol Opth Drops 0.5 % Soln 1 Drop EACH EYE Q12HR -Trazodone 100 Mg PO HS -Gabapentin 300 Mg PO 5 capsules daily in divided dosed (2 tablets@1200,1 tablet @1700, 1 tablet @1900, 1 tablet @2100) -Ropinirole 0.5 Mg (1 tablet @1200, 1 tablet @1700, 2 tablets @2100) Physical Exam Vital Signs Vital Signs Date Time Temp Pulse Resp B/P Pulse Ox O2 Delivery O2 Flow Rate FiO2 02/27/17 18:00 98.1 96 18 108/64 97 02/27/17 16:00 97.0 86 20 124/81 90 02/27/17 12:00 98.6 93 18 104/71 96 02/27/17 10:23 105 28 90/56 90 02/27/17 10:17 103 21 103/65 97 02/27/17 08:00 97.6 122 18 108/73 95 02/27/17 04:00 96.6 93 22 103/63 93 02/27/17 00:00 96.4 85 22 109/64 93 02/26/17 20:00 97.6 101 24 110/67 93 Physical Exam Gen: Elderly man Head: Normal. Neck: Chronically stiff, airway widely patent. Lungs: Clear, no wheezes or crackles. No tachypnea. Heart: RRR, NL S1S2, no m,r. Abdomen: Large, rotund, soft. No tenderness or guarding. BS active. Fixed small umbilical hernia without local tenderness. Extremities: Generalized 2+ edema lowers. Well perfused. Neuro: O X 3, alert, cooperative. Moves 4 limbs to command. Laboratory Laboratory Tests Test 02/27/17 02/27/17 08:28 12:35 White Blood Count 19.7 Red Blood Count 4.26 Hemoglobin 13.3 Hematocrit 40.1 Mean Corpuscular Volume 94.1 Mean Corpuscular Hemoglobin 31.2 Mean Corpuscular Hemoglobin 33.2 Concent Red Cell Distribution Width 15.6 Platelet Count 247 Mean Platelet Volume 8.3 Neutrophils (%) (Auto) 77.7 Lymphocytes (%) (Auto) 3.9 Monocytes (%) (Auto) 10.7 Eosinophils (%) (Auto) 7.4 Basophils (%) (Auto) 0.3 Neutrophils # (Auto) 15.3 Lymphocytes # (Auto) 0.8 Monocytes # (Auto) 2.1 Eosinophils # (Auto) 1.4 Basophils # (Auto) 0.1 CBC Comment DIFF FINAL Differential Comment Sodium Level 132 133 Potassium Level 4.5 4.5 Chloride Level 96 98 Carbon Dioxide Level 25.9 25.1 Anion Gap 10 10 Blood Urea Nitrogen 42 45 Creatinine 1.76 1.74 Estimat Glomerular Filtration 37 38 Rate Random Glucose 132 146 Calcium Level 11.7 11.7 Protein Corrected Calcium Magnesium Level 2.5 Total Protein 6.2 6.0 Result Diagram: 02/27/17 0828 02/27/17 1235 Assessment and Plan Assessment and Plan Assessment: 1. Generalized edema. 2. Shortness of breath. 3. S/P lumbar spine surgery. 4. DM, 2 Plan: Overall impression: Although he is generally edematous and obviously well above his baseline weight, I do not think his intravascular volume is excessive. Diuretics may mobilize his edema fluid but the cause of his edema is likely non- cardiac. The CT abdomen raises the possibility of metastatic disease which further complicates his evaluation. We will follow with you. No therapeutic recommendations at this time. Thuan Espinosa MD February 27, 2017 19:17
[2017-02-27] MEDS: CALCITONIN SALMON INJ 400 UNITS/2 ML VIAL SQ SCH (20:00)
[2017-02-27] MEDS: traZODone HCL 50 MG TAB PO SCH (20:38)
[2017-02-27] MEDS: CYCLOBENZAPRINE HCL 10 MG TAB PO PRN (20:38)
[2017-02-27] MEDS: ATORVASTATIN 10 MG TAB PO SCH (20:38)
[2017-02-27] MEDS: TIMOLOL MALEATE 0.5% OPHT SOLN 5 ML BTL EACH EYE SCH ×2 (20:39→21:00)
[2017-02-27] MEDS: LATANOPROST 0.005% OPHT SOLN 2.5 ML BTL EACH EYE SCH (21:00)
[2017-02-28] VITALS (9 sets, daily range): BP systolic 83–113; BP diastolic 58–95; PULSE 96–108; RESP 16–22; TEMP 97.9–98.9; O2SAT 94–98
[2017-02-28 04:13] LABS: AUTOMATED NEUTROPHIL # 17.1 TH/MM3 (1.8-7.7); BASOPHIL % 0.2 % (0.0-2.0); EOSINOPHIL # 0.8 TH/MM3 (0-0.4); EOSINOPHIL % 3.8 % (0.0-4.0); HEMO FLAGS DIFF FINAL; LYMPH % 3.2 % (9.0-44.0); LYMPHOCYTE # 0.7 TH/MM3 (1.0-4.8); MEAN CELL VOLUME 93.3 FL (80.0-100.0); MEAN CORPUSCULAR HGB CONC 33.2 % (32.0-36.0); MONO % 9.1 % (0.0-8.0); NEUT % 83.7 % (16.0-70.0); PLATELET COUNT 254 TH/MM3 (150-450); RED BLOOD COUNT 4.18 MIL/MM3 (4.50-5.90); RED CELL DISTRIBUTION WIDTH 15.3 % (11.6-17.2); WHITE BLOOD COUNT 20.4 TH/MM3 (4.0-11.0)
[2017-02-28 04:35] LABS: ANION GAP 9 MEQ/L (5-15); BICARBONATE 28.2 MEQ/L (21.0-32.0); BLOOD UREA NITROGEN 45 MG/DL (7-18); CHLORIDE 95 MEQ/L (98-107); GLOMERULAR FILTRATION RATE 35 ML/MIN (>89); MAGNESIUM 2.5 MG/DL (1.5-2.5); POTASSIUM 4.5 MEQ/L (3.5-5.1); SODIUM (NA) 132 MEQ/L (136-145)
[2017-02-28] MEDS: INSULIN NovoLIN REGULAR SUPPLEMENTAL SCALE SQ SCH ×4 (06:14→21:00)
[2017-02-28 08:05] LABS: TOTAL PROTEIN SPE 5.5 GM/DL (6.0-7.6)
[2017-02-28] MEDS: ENOXAPARIN SODIUM 40 MG/0.4 ML SYRINGE SQ SCH (08:30)
[2017-02-28] MEDS: LACTULOSE SYRUP 20 GM/30 ML CUP PO SCH (08:30)
[2017-02-28] MEDS: DOCUSATE SODIUM 100 MG CAP PO SCH ×2 (08:30→20:49)
[2017-02-28] MEDS: ASPIRIN EC 81 MG TABEC PO SCH (08:30)
[2017-02-28] MEDS: POLYETHYLENE GLYCOL 17 GM PKG PO SCH (08:30)
[2017-02-28] MEDS: PANTOPRAZOLE SOD 40 MG DELAYED RELEASE TAB PO SCH (08:30)
[2017-02-28] MEDS: BUMETANIDE INJ 1 MG/4 ML VIAL IV PUSH SCH ×2 (08:30→18:00)
[2017-02-28] MEDS: CALCITONIN SALMON INJ 400 UNITS/2 ML VIAL SQ SCH ×2 (08:30→20:50)
[2017-02-28] MEDS: SODIUM CHLORIDE 0.9% FLUSH 10 ML FLUSH IV FLUSH SCH ×2 (08:31→20:51)
[2017-02-28] MEDS: TIMOLOL MALEATE 0.5% OPHT SOLN 5 ML BTL EACH EYE SCH ×2 (09:00→20:50)
--- NOTE | 2017-02-28 09:13 | HHI.NSPN ---
(Johny Moore) History Chief Complaint: Incisional pain but controlled. (Johny Moore) Interval History 02/20/17: Pt awake sitting up in chair. Complains of incision back pain but controlled with [employer]. Denies radiculopathy into the lower extremities. He states he has stable paresthesias or numbness feet and hands from his neuropathy. 02/24/17: Pt awake and alert, sitting up in chair. Complains of incisional back pain but no radiculopathy in LEs. Paresthesias in feet stable, hx of neuropathy. He ambulates but acknowledges he needs assistance getting oob and out of chair. Agrees he may need short term rehab stay. 02/25/17: Pt sitting up in chair. Complains of some sob when moving. Transfer to rehab was held yesterday secondary to reports pt desaturates when ambulating to 88. He states when sitting in chair no sob. No chest pain. He has Incisional back pain. No radiculopathy in LEs. Stable paresthesias in feet from neuropathy. 02/27/17: Pt awake and alert. Sitting up in chair. No radiculopathy in LEs. Hx of Neuropathy in feet. Pt with some desaturation today with ambulation pr RN. 02/28/17: Pt awake transferred to ICU yesterday. Incisional pain controlled. Pt with sob especially with activity. Abdomen distended, Positive bs. Imaging reports reviewed and noted. (Johny Moore) Review of Systems General: Negative for: fever, chills, insomnia Respiratory: Positive for: shortness of breath, Negative for: cough, sputum Cardiovascular: Negative for: chest pain Gastrointestinal: Negative for: nausea, vomitting, diarrhea, constipation ( Johny Moore) Exam Results Vital Signs Date Time Temp Pulse Resp B/P Pulse Ox O2 Delivery O2 Flow Rate FiO2 02/28/17 08:04 96 Nasal Cannula 2.00 02/28/17 04:28 98.4 98 21 98/95 Intake and Output 02/27/17 02/27/1702/28/17 08:00 16:00 00:00 Intake Total 240 ml 240 ml Output Total 300 ml Balance 240 ml -60 ml (Johny Moore) Physical Examination Resp: CTA bilaterally. On O2 NC. Heart: NSR no murmurs Abd: Distended but Soft positive bs Skin: no cyanosis or erythema. He has bilateral LE moderate edema, compression stockings in place. No signs of DVT. Muscle: Moves LEs with good strength. Neuro: Pt awake and alert. follows commands well. speech clear and appropriate. Neuropathy in feet. (Johny Moore) Lab, Micro, Other Results Last Impressions Chest CT 02/27/17 0000 Signed Impressions: Service Date/Time: February 17:10 - CONCLUSION: 1. Elevated right hemidiaphragm with basilar atelectasis and scarring. No effusions. No adenopathy. See abdomen CT for findings of abnormal fluid accumulation below the diaphragms. Hang Tyson MD Abdomen/Pelvis CT 02/27/17 0000 Signed Impressions: Service Date/Time: February 17:13 - CONCLUSION: 1. Ascites and diffuse omental caking/thickening typical of peritoneal carcinomatosis. Primary uncertain but possibly gastric as there appears to be some wall thickening along the greater curvature of the body. Direct visualization with endoscopy recommended. 2. I don't clearly see the appendix. 3. No other evidence of metastatic disease. 4. Umbilical hernia. Adriel Krueger MD Chest X-Ray 02/26/17 0800 Signed Impressions: Service Date/Time: Sunday, February 26, 2017 09:16 - CONCLUSION: Normal examination. Lamin Spicer MD Lumbar Spine X-Ray 02/19/17 0000 Signed Impressions: Service Date/Time: Sunday, February 19, 2017 08:46 - CONCLUSION: 1. Postsurgical changes as above. Georges Cardozo MD Laboratory Tests Test 02/27/17 02/27/17 02/28/17 12:35 19:58 03:56 Sodium Level 133 MEQ/L 132 MEQ/L Potassium Level 4.5 MEQ/L 4.5 MEQ/L Chloride Level 98 MEQ/L 95 MEQ/L Carbon Dioxide Level 25.1 MEQ/L 28.2 MEQ/L Anion Gap 10 MEQ/L 9 MEQ/L Blood Urea Nitrogen 45 MG/DL 45 MG/DL Creatinine 1.74 MG/DL 1.87 MG/DL Estimat Glomerular Filtration 38 ML/MIN 35 ML/MIN Rate Random Glucose 146 MG/DL 143 MG/DL Calcium Level 11.7 MG/DL 11.6 MG/DL Protein Corrected Calcium MG/DL MG/DL Total Protein 6.0 GM/DL 5.5 GM/DL 5.8 GM/DL White Blood Count 20.4 TH/MM3 Red Blood Count 4.18 MIL/MM3 Hemoglobin 13.0 GM/DL Hematocrit 39.0 % Mean Corpuscular Volume 93.3 FL Mean Corpuscular Hemoglobin 31.0 PG Mean Corpuscular Hemoglobin 33.2 % Concent Red Cell Distribution Width 15.3 % Platelet Count 254 TH/MM3 Mean Platelet Volume 7.7 FL Neutrophils (%) (Auto) 83.7 % Lymphocytes (%) (Auto) 3.2 % Monocytes (%) (Auto) 9.1 % Eosinophils (%) (Auto) 3.8 % Basophils (%) (Auto) 0.2 % Neutrophils # (Auto) 17.1 TH/MM3 Lymphocytes # (Auto) 0.7 TH/MM3 Monocytes # (Auto) 1.9 TH/MM3 Eosinophils # (Auto) 0.8 TH/MM3 Basophils # (Auto) 0.0 TH/MM3 CBC Comment DIFF FINAL Differential Comment Phosphorus Level 4.1 MG/DL Magnesium Level 2.5 MG/DL 25-Hydroxy Vitamin D Total 20.1 ng/ML Parathyroid Hormone (Intact) LESS THAN 2.5 PG/ML 02/27/17 02/27/17 02/28/17 15:00 23:00 07:00 Intake Total 240 ml 240 ml 150 ml Output Total 300 ml 575 ml Balance 240 ml -60 ml -425 ml Intake Oral 240 ml 240 ml 150 ml Output Urine Total 300 ml 575 ml # Voids 2 1 2 (Johny Moore) Medical Decision Making Impression and Plan A: 81 y/o M s/p L4, L5 and S1 decompressive laminectomy with medial facetectomy and foraminotomy and L5/S1 TLIF with cage and pedicle screw fixation. P: Continue with medical workup and treatment. Continue with PT (Johny Moore) Attending Statement The exam, history, and the medical decision-making described in the above note were completed with the assistance of the mid-level provider. I reviewed and agree with the findings presented. I attest that I had a [id number] encounter with the patient on the same day, and personally performed and documented my assessment and findings in the medical record. (Dexter Dumont MD) Johny Moore February 28, 2017 09:13 Dexter Dumont MD February 28, 2017 13:36
[2017-02-28 09:27] LABS: ALBUMIN SPE 2.29 GM/DL (3.50-5.00); ALPHA 1 GLOBULIN 0.56 GM/DL (0.11-0.29); ALPHA 2 GLOBULIN 1.35 GM/DL (0.22-1.00)
[2017-02-28 09:28] LABS: BETA GLOBULINS (SPE) 0.74 GM/DL (0.53-1.03)
--- NOTE | 2017-02-28 09:46 | RADRPT ---
EXAM DATE/TIME: 02/28/2017 08:47 [facility] COMPARISON: No previous studies available for comparison. INDICATIONS : Bilateral leg edema. MEDICAL HISTORY : Hypertension. Diabetes mellitus type 1. Osteoarthritis. Cataracts. Glaucoma. Herniated disk. Peripher al neuropathy. Restless leg syndrome. TIA. Sleep apnea. Dyspnea. Stage III chronic kidney disease. Ba ck pain. Depression. Anxiety. SURGICAL HISTORY : Appendectomy.Inguinal hernia repair. Sinus surgery x2. Lumbar surgery. ENCOUNTER: Initial ACUITY: 1 week PAIN SCORE: 0/10 LOCATION: Bilateral leg. TECHNIQUE: Venous ultrasound of the left and right leg was performed from the inguinal ligament to the proximal calf. Real-time, color Doppler and spectral tracing, compression and augmentation techniques were us ed. FINDINGS: RIGHT LEG: There is normal compressibility of the deep venous system from the inguinal region to the proximal ca lf. No echogenic clot is seen in the lumen of the common femoral, femoral, popliteal, and posterior tibial veins. There is a normal response of the venous system to proximal and distal augmentation an d respiration. LEFT LEG: There is normal compressibility of the deep venous system from the inguinal region to the proximal ca lf. No echogenic clot is seen in the lumen of the common femoral, femoral, popliteal, and posterior tibial veins. There is a normal response of the venous system to proximal and distal augmentation an d respiration. CONCLUSION: No DVT in either lower extremity. Johny Woods MD on February 28, 2017 at 9:44 Board Certified Radiologist. This report was verified electronically.
[2017-02-28] MEDS: GABAPENTIN 300 MG CAP PO SCH ×2 (11:25→20:50)
[2017-02-28] MEDS: ACETAMINOPHEN/HYDROcodone 325 MG/10 MG TAB PO PRN ×2 (11:25→22:40)
[2017-02-28 11:39] LABS: HEMOGLOBIN A1a 1.2 %; HEMOGLOBIN Ao 83.3 %; HEMOGLOBIN LA1C 2.2 %; HEMOGLOBIN P3 5.6 %
--- NOTE | 2017-02-28 14:16 | HHI.CCPN ---
Subjective Remarks/Hospital Course Hospital Course: 81 y/o man s/p lumbar spine surgery for intractable pain. Uneventful perioperative course but has retained significant amount of fluid manifested as ascites and peripheral edema, particularly prominent in the legs. His SOB has improved modestly after diuresis. CXR shows elevated right diaphragm and good lung expansion. No signs of venous congestion. CT abdomen concerning for metastatic disease and ascites. He denies chest pain or abdominal pain. Subjective: 02/28: still persistently oliguric. cr continues to rise. still dysnpeic on exertion, but hypoxia has improved. Objective Vital Signs Date Time Temp Pulse Resp B/P Pulse Ox O2 Delivery O2 Flow Rate FiO2 02/28/17 08:04 96 Nasal Cannula 2.00 02/28/17 04:28 98.4 98 21 98/95 Intake and Output 02/27/17 02/27/17 02/28/17 08:00 16:00 00:00 Intake Total 240 ml 240 ml Output Total 300 ml Balance 240 ml -60 ml Result Diagram: 02/28/17 0356 02/28/17 0356 Objective Remarks Gen: Elderly man Head: Normal. Neck: Chronically stiff, airway widely patent. Lungs: Clear, no wheezes or crackles. No tachypnea. Heart: RRR, NL S1S2, no m,r. Abdomen: Large, rotund, soft. No tenderness or guarding. BS active. Fixed small umbilical hernia without local tenderness. Extremities: Generalized 2+ edema lowers. Well perfused. Neuro: O X 3, alert, cooperative. Moves 4 limbs to command. A/P Assessment and Plan Assessment: 1. Generalized edema. 2. Shortness of breath. 3. S/P lumbar spine surgery. 4. DM, 2 5. Acute kidney injury- worsening. Plan: -- will send urine electrolytes, eosinophils, u/a with microscopy -- renal ultrasound -- complement levels -- send bnp -- unclear volume status, although I agree with Dr. osman that he does not appear very intravascular hyervolemic, and his edema may be secondary to poor nutritional status/acute protein calorie malnutrition/hypoalbuminemia. -- dyspnea improving, could transfer to floor soon. will await work-up for jaqui. Overall impression: elderly male, recently post-op, but clearly multiple medical comorbidities, frail, may not do well long-term. The CT abdomen raises the possibility of metastatic disease which further complicates his evaluation. We will follow with you. Sánchez Burns MD February 28, 2017 14:16
[2017-02-28] MEDS ORDERED: HYDROmorphone HCL PF 1 MG/ML VIAL IV ONE (14:45)
--- NOTE | 2017-02-28 16:13 | PD.CONS ---
HPI History of Present Illness This is a 81 year old male with HTN, diabetes mellitus, KARYNA, RLS, and chronic back pain with lumbar spinal stenosis/radiculopathy who was admitted on for L5-S1 transforaminal interbody fusion/ L4, L5 and S1 decompressive laminectomy and fixation. GI consulted for abnormal findings on CT. CT on () showed 1. Ascites and diffuse omental caking/thickening typical of peritoneal carcinomatosis. Primary uncertain but possibly gastric as there appears to be some wall thickening along the greater curvature of the body. Direct visualization with endoscopy recommended. 2. I don't clearly see the appendix. 3. No other evidence of metastatic disease. 4. Umbilical hernia. Patient denies previous hx of liver or gastric cancer. Patient reports post op nausea and vomiting. He reports abd pain only with movement. He denies change in bowels, melena or hematochezia. He reports abd distension and increase in abd girth and pedal edema. He denies fever, chills or shortness of breath. Patient is somewhat bad historian (Bennett Claudio) PFSH Past Medical History CKD 2, Creatinine 1.03, GFR 78 (February 2017) Chronic low back pain/Lumbar spinal stenosis/radiculopathy BPH Diabetes mellitus, type 2 HTN Hyperlipidemia Inflammatory polyarthritis Obesity Peripheral neuropathy KARYNA RLS Thrombocytopenia Cataracts Past Surgical History L5-S1 transforaminal interbody fusion/ L4, L5 and S1 decompressive laminectomy and fixation on 02/19/17 Appendectomy Lumbar diskectomy Inguinal hernia repair Sinus surgery Tonsillectomy/Adenoidectomy (Bennett Claudio) Coded Allergies: No Known Allergies (Verified , 02/19/17) Medications Current Medications Medications (Trade) Dose Ordered Sig/Justin Route Start Time Stop Time Status Last Admin (Ecotrin Ec) 81 mg DAILY PO 02/20/17 09:00 02/28/17 08:30 (Lipitor) 10 mg HS PO 02/19/17 21:00 02/27/17 20:38 (Xalatan 0.005% Opth Soln) 1 drop HS EACH EYE 02/19/17 21:00 02/26/17 21:57 (Timoptic 0.5% Opth Soln) 1 drop Q12HR EACH EYE 02/19/17 21:00 02/28/17 09:00 (Desyrel) 100 mg HS PO 02/19/17 21:00 02/27/17 20:38 (D50w (Vial) Inj) 50 ml UNSCH PRN IV 02/19/17 12:30 (Glucagon Inj) 1 mg UNSCH PRN OTHER 02/19/17 12:30 (Narcan Inj) 0.4 mg UNSCH PRN IV 02/19/17 12:30 (Benadryl Inj) 25 mg Q6H PRN IV 02/19/17 12:30 (NS Flush) 2 ml UNSCH PRN IV FLUSH 02/19/17 12:30 (NS Flush) 2 ml BID IV FLUSH 02/19/17 21:00 02/28/17 08:31 (Colace) 100 mg BID PO 02/19/17 21:00 02/28/17 08:30 (Milk Of Magnesia Liq) 30 ml DAILY PRN PO 02/19/17 12:30 (Protonix) 40 mg DAILY PO 02/20/17 09:00 02/28/17 08:30 (Zofran Inj) 4 mg Q6H PRN IV 02/19/17 12:30 02/27/17 12:40 ([place] 10-325 Mg) 1 tab Q4H PRN PO 02/19/17 12:30 02/28/17 11:25 ([place] 10-325 Mg) 2 tab Q4H PRN PO 02/19/17 12:30 02/27/17 20:39 (Flexeril) 10 mg Q8H PRN PO 02/19/17 12:30 02/27/17 20:38 (Catapres) 0.1 mg Q6H PRN PO 02/19/17 12:30 (Tylenol) 650 mg Q4H PRN PO 02/19/17 12:30 02/21/17 17:13 ([place]) 1 lozenge UNSCH PRN BUCCAL 02/19/17 12:30 (Miralax) 17 gm DAILY PO 02/20/17 09:00 02/28/17 08:30 (Lactulose Liq) 30 ml DAILY PRN PO 02/19/17 12:30 02/27/17 09:12 (Compazine Inj) 10 mg Q6H PRN IV PUSH 02/19/17 12:45 (Requip) 0.5 mg BID@ PO 02/19/17 17:30 02/28/17 11:25 (Requip) 1 mg HS PO 02/19/17 21:00 02/27/17 20:39 (Lovenox Inj) 40 mg Q24H SQ 02/21/17 09:00 02/28/17 08:30 (Lactulose Liq) 30 ml DAILY PO 02/21/17 16:00 02/28/17 08:30 (Neurontin) 600 mg DAILY@ PO 02/27/17 21:00 02/28/17 11:25 (Bumex Inj) 1 mg BID@18 IV PUSH 02/27/17 18:00 02/28/17 08:30 (Miacalcin Inj) 50 units Q12H SQ 02/27/17 20:00 03/01/17 20:00 02/28/17 08:30 Family History Non contributory Social History No alcohol No smoking No illicit drug use (Bennett Claudio) Review of Systems Constitutional: COMPLAINS OF: Weight gain, DENIES: Chills Eyes: DENIES: Double Vision Ears, nose, mouth, throat: DENIES: Hoarseness Respiratory: DENIES: Shortness of breath Cardiovascular: COMPLAINS OF: Lower Extremity Edema Gastrointestinal: COMPLAINS OF: Abdominal pain, Constipation, Nausea, Vomiting , Swelling of Abdomen, DENIES: Black stools, Bloody stools, Diarrhea, Difficulty Swallowing, Anorexia, Odynophagia, Heartburn, Hematemesis Genitourinary: DENIES: Hematuria Musculoskeletal: DENIES: Back pain Integumentary: DENIES: Jaundice Hematologic/lymphatic: DENIES: Bruising Immunologic/allergic: DENIES: Eczema Neurologic: DENIES: Abnormal gait Psychiatric: DENIES: Anxiety (Bennett Claudio) GI Exam Vitals I&O Vital Signs Date Time Temp Pulse Resp B/P Pulse Ox O2 Delivery O2 Flow Rate FiO2 02/28/17 12:00 97.9 108 22 83/60 98 02/28/17 08:04 96 Nasal Cannula 2.00 02/28/17 08:00 98.1 96 16 113/68 98 02/28/17 04:28 98.4 98 21 98/95 96 02/28/17 00:28 98.1 98 19 113/69 96 02/27/17 20:28 98.3 93 20 106/62 94 02/27/17 18:00 98.1 96 18 108/64 97 02/27/17 16:00 97.0 86 20 124/81 90 I/O 02/27/17 02/27/17 02/27/17 02/28/17 02/28/17 02/28/17 07:00 15:00 23:00 07:00 15:00 23:00 Intake Total 240 ml 240 ml 150 ml 240 ml Output Total 300 ml 575 ml 350 ml Balance 240 ml -60 ml -425 ml -110 ml Intake Oral 240 ml 240 ml 150 ml 240 ml Output Urine Total 300 ml 575 ml 350 ml # Voids 1 2 1 2 0 Imaging Last Impressions Lower Extremity Ultrasound 02/28/17 0000 Signed Impressions: Service Date/Time: Tuesday, February 28, 2017 08:47 - CONCLUSION: No DVT in either lower extremity. Johny Woods MD Chest CT 02/27/17 0000 Signed Impressions: Service Date/Time: February 17:10 - CONCLUSION: 1. Elevated right hemidiaphragm with basilar atelectasis and scarring. No effusions. No adenopathy. See abdomen CT for findings of abnormal fluid accumulation below the diaphragms. Hang Tyson MD Abdomen/Pelvis CT 02/27/17 0000 Signed Impressions: Service Date/Time: February 17:13 - CONCLUSION: 1. Ascites and diffuse omental caking/thickening typical of peritoneal carcinomatosis. Primary uncertain but possibly gastric as there appears to be some wall thickening along the greater curvature of the body. Direct visualization with endoscopy recommended. 2. I don't clearly see the appendix. 3. No other evidence of metastatic disease. 4. Umbilical hernia. Adriel Krueger MD Chest X-Ray 02/26/17 0800 Signed Impressions: Service Date/Time: Sunday, February 26, 2017 09:16 - CONCLUSION: Normal examination. Lamin Spicer MD Lumbar Spine X-Ray 02/19/17 0000 Signed Impressions: Service Date/Time: Sunday, February 19, 2017 08:46 - CONCLUSION: 1. Postsurgical changes as above. Georges Cardozo MD Laboratory Test 02/27/17 02/28/17 19:58 03:56 Total Protein 5.5 GM/DL 5.8 GM/DL Albumin 2.29 GM/DL Albumin/Globulin Ratio 0.72 Cnlan-2-[place] 0.56 GM/DL Tsdhj-5-Tbvopcgba 1.35 GM/DL Beta Globulins 0.74 GM/DL Gamma Globulins 0.56 GM/DL Electrophoresis Pathologist Comment White Blood Count 20.4 TH/MM3 Red Blood Count 4.18 MIL/MM3 Hemoglobin 13.0 GM/DL Hematocrit 39.0 % Mean Corpuscular Volume 93.3 FL Mean Corpuscular Hemoglobin 31.0 PG Mean Corpuscular Hemoglobin 33.2 % Concent Red Cell Distribution Width 15.3 % Platelet Count 254 TH/MM3 Mean Platelet Volume 7.7 FL Neutrophils (%) (Auto) 83.7 % Lymphocytes (%) (Auto) 3.2 % Monocytes (%) (Auto) 9.1 % Eosinophils (%) (Auto) 3.8 % Basophils (%) (Auto) 0.2 % Neutrophils # (Auto) 17.1 TH/MM3 Lymphocytes # (Auto) 0.7 TH/MM3 Monocytes # (Auto) 1.9 TH/MM3 Eosinophils # (Auto) 0.8 TH/MM3 Basophils # (Auto) 0.0 TH/MM3 CBC Comment DIFF FINAL Differential Comment Sodium Level 132 MEQ/L Potassium Level 4.5 MEQ/L Chloride Level 95 MEQ/L Carbon Dioxide Level 28.2 MEQ/L Anion Gap 9 MEQ/L Blood Urea Nitrogen 45 MG/DL Creatinine 1.87 MG/DL Estimat Glomerular Filtration 35 ML/MIN Rate Random Glucose 143 MG/DL Hemoglobin A1c 6.7 % Calcium Level 11.6 MG/DL Protein Corrected Calcium MG/DL Phosphorus Level 4.1 MG/DL Magnesium Level 2.5 MG/DL 25-Hydroxy Vitamin D Total 20.1 ng/ML Parathyroid Hormone (Intact) LESS THAN 2.5 PG/ML Physical Examination HEENT: normocephalic; atraumatic; no jaundice. NECK: Neck is supple, no JVD, no lymphadenopathy. CHEST: Chest is clear to auscultation and percussion. CARDIAC: Regular rate and rhythm with no murmur gallop or rubs. ABDOMEN: Soft, distended, nontender; no hepatosplenomegaly; bowel sounds are present in all four quadrants. EXTREMITIES: No clubbing, cyanosis, or edema. SKIN: Normal; no rash; no jaundice. [employer]ING: No focal deficits; alert and oriented times three. (Bennett Claudio) Assessment and Plan Plan - Abnormal findings on CT suggesting peritoneal carcinomatosis- uncertain primary, but possibly gastric- CT on (02/27/17) showed 1. Ascites and diffuse omental caking/thickening typical of peritoneal carcinomatosis. Primary uncertain but possibly gastric as there appears to be some wall thickening along the greater curvature of the body. Direct visualization with endoscopy recommended. 2. I don't clearly see the appendix. 3. No other evidence of metastatic disease. 4. Umbilical hernia. Patient denies previous hx of liver or gastric cancer. Patient reports post op nausea and vomiting. He reports abd pain only with movement. He denies change in bowels, melena or hematochezia. He reports abd distension and increase in abd girth and pedal edema. He denies fever, chills or shortness of breath. Patient is somewhat bad historian - Ascites- CT above, patient denies hx of liver dz - CKD- nephrology on the case - lumbar spinal stenosis/radiculopathy who was admitted on 02/19/17 for L5-S1 transforaminal interbody fusion/ L4, L5 and S1 decompressive laminectomy and fixation. - Hx of HTN, diabetes mellitus, KARYNA, RLS, and chronic back pain per attending with GI consulted for abnormal findings on CT. Plan: - NPO mn - EGD in the am - Hold Lovenox after mn - LFTs - Consider diagnostic paracentesis - Supportive care - Patient seen and examined by Dr. Hdz and myself and this note is written on his behalf. (Bennett Claudio) Physician Comments Patient seen and examined Agree with above Continue with current supportive care Monitor labs EGD tomorrow if negative will consider diagnostic paracentesis (David Hdz MD) Bennett Claudio February 28, 2017 16:13 David Hdz MD February 28, 2017 19:32
--- NOTE | 2017-02-28 16:53 | HHI.NPPN ---
Subjective History of Present Illness 81 y/o male, was admitted on 02/19 for lumbar surgery, since he has had chronic pain for years. Other PMH of obesity, DM II, HTN, KARYNA, RLS, and CKD, has been following with me in the office. His baseline Creatinine is close to 1.5. Additional Remarks Patient is alert, has back pain , no SOB. Review of Systems General Constitutional: Fatigue Cardiovascular Cardiac: [place] Objective Data Data 02/27/17 02/28/17 19:00 07:00 Intake Total 240 ml 390 ml Output Total 875 ml Balance 240 ml -485 ml Intake Oral 240 ml 390 ml Output Urine Total 875 ml # Voids 2 3 Vital Signs Date Time Temp Pulse Resp B/P Pulse Ox O2 Delivery O2 Flow Rate FiO2 02/28/17 12:00 97.9 108 22 83/60 98 02/28/17 08:04 96 Nasal Cannula 2.00 02/28/17 08:00 98.1 96 16 113/68 98 02/28/17 04:28 98.4 98 21 98/95 96 02/28/17 00:28 98.1 98 19 113/69 96 02/27/17 20:28 98.3 93 20 106/62 94 02/27/17 18:00 98.1 96 18 108/64 97 -: 02/28/17 0356 02/28/17 0356 Physical Exam General Appearance: No Acute Distress, Comfortable Eyes Eye Exam: Pupils Equal Throat Throat Exam: Oral Mucosa [place] & Moist Neck Neck Exam: Neck Supple, Trachea Midline Pulmonary Resp Exam: No Distress, Rhonchi, Decreased Bases, Diminished Breath Sounds Cardiology CV Exam: Regular, Normal Sinus Rhythm Gastrointestinal/Abdomen GI Exam: Soft, Non-Tender, Bowel Sounds Present Extremeties Extremities Exam: Trace Edema Neurologic Neuro Exam: Alert, Awake, Oriented Psychiatric Psych Exam: Appropriate Responses Assessment/Plan Problem List: (1) NATHAN (acute kidney injury) Plan: History of CKD 2, baseline Creatinine 1.03, GFR 78 NATHAN from diminished renal perfusion due to hypotension, may have progressed to ATN electrolytes are unremarkable, he is fluid overloaded, see below at this time avoid nephrotoxic substances obtain UA for analysis, obtain urine electrolytes Creatinine is 2.0, slightly increased. Possibly has ATN, non oliguric, follow urine out put and BMP. (2) Lumbar stenosis with neurogenic claudication Plan: s/p L5-S1 transforaminal interbody fusion/ L4, L5 and S1 decompressive laminectomy and fixation on 02/19/[address] Dumont. cleared for discharge when medical issues are managed per neurosurgery he declined rehab placement, home with home health care/PT/OT pain medications PRN (3) HTN (hypertension), benign Plan: BP borderline low, hold antihypertensives (4) Diabetes mellitus type 2, noninsulin dependent Plan: home metformin has been held continue insulin, follow glucose, goal 140-180 mg/dL (5) Edema Plan: given Lasix 80 mg IV today needs diuresis, begin Bumex 1 mg BID, titrate as tolerated/needed monitor renal response to diuretic therapy follow weights, I/O, limit oral fluid intake, avoid IVF ordered LOVE hose, to elevate, low Na diet (6) Hypercalcemia Plan: may be due to immobility check PTH, vitamin D levels CT abd/chest/pelvis to rule out malignancy per hospitalist follow calcium levels Leland Greenberg MD February 28, 2017 16:53
[2017-02-28 20:00] LABS: BLOOD, URINE NEG (NEG); COMMENT (UR) CULT NOT INDICATED; CULTURE IF INDICATED CULT NOT INDICATED; GLUCOSE,URINE NEG (NEG); HYALINE CAST, URINE 16 /lpf (RARE); KETONE, URINE NEG (NEG); NITRITE,URINE NEG (NEG); SQUAMOUS EPITHELIAL CELL URINE <1 /hpf (0-5); URINE COLOR YELLOW (YELLW/STRAW)
[2017-02-28 20:17] LABS: URINE TOTAL PROTEIN TIMED 41.4 MG/DL
[2017-02-28] MEDS: traZODone HCL 50 MG TAB PO SCH (20:49)
[2017-02-28] MEDS: ATORVASTATIN 10 MG TAB PO SCH (20:49)
[2017-02-28] MEDS: LATANOPROST 0.005% OPHT SOLN 2.5 ML BTL EACH EYE SCH (20:50)
[2017-02-28] MEDS: CYCLOBENZAPRINE HCL 10 MG TAB PO PRN (21:10)
[2017-02-28 21:16] LABS: PROTHROMBIN TIME - PATIENT 11.4 SEC (9.8-11.6)
[2017-02-28 21:30] LABS: BICARBONATE 29.9 MEQ/L (21.0-32.0); INDIRECT BILIRUBIN 0.3 MG/DL (0.0-0.8); POTASSIUM 4.1 MEQ/L (3.5-5.1); TOTAL BILIRUBIN ADULT 0.7 MG/DL (0.2-1.0)
[2017-02-28] MEDS ORDERED: ALBUMIN HUMAN 5% 25 GM/500 ML BOTTLE IV ONE (21:30)
[2017-02-28 21:54] LABS: CALCIUM-PROTEIN CORRECTED 12.9 MG/DL (8.5-10.1)
[2017-02-28] MEDS: SODIUM CHLOR 0.9% 1000 ML INJ 1,000 ML IV SCH (22:09)
--- NOTE | 2017-02-28 22:27 | RADRPT ---
EXAM DATE/TIME: 02/28/2017 21:46 [facility] COMPARISON: CT ABDOMEN & PELVIS W/O CONTRAST, February 27, 2017, 17:13. INDICATIONS : Abnormal labs. MEDICAL HISTORY : Glaucoma. Herniated disk. Peripheral neuropathy. Restless leg. TIA. Hypertension. Dyspnea. Renal dise ase. Osteoarthritis. Diabetes. Depression. SURGICAL HISTORY : Appendectomy. Cataracts. Sinus surgery. Lumbar surgery. Lumbar surgery. Right inguinal hernia rep air. ENCOUNTER: Initial ACUITY: 1 day PAIN SCORE: 5/10 LOCATION: Bilateral flank MEASUREMENTS: RIGHT KIDNEY: 12.1 x 6.1 x 6.3 cm LEFT KIDNEY: 11.3 x 6.1 x 6.9 cm FINDINGS: RIGHT KIDNEY: Renal cortex is normal in thickness and echotexture. No hydronephrosis, stone, or mass. LEFT KIDNEY: Renal cortex is normal in thickness and echotexture. No hydronephrosis, stone, or mass. BLADDER: Decompressed and not well-seen. Small volume ascites. CONCLUSION: 1. Small volume ascites. 2. No obstruction. 3. Totally decompressed urinary bladder which is poorly evaluated. Meliton Campbell Jr., MD on February 28, 2017 at 22:23 Board Certified Radiologist. This report was verified electronically.
[2017-03-01] VITALS (15 sets, daily range): BP systolic 90–110; BP diastolic 54–67; PULSE 70–103; RESP 15–24; TEMP 97.1–98.6; O2SAT 95–99
[2017-03-01] MEDS ORDERED: SODIUM CHLOR 0.9% 1000 ML INJ 1,000 ML IV SCH (03:45)
[2017-03-01] MEDS: INSULIN NovoLIN REGULAR SUPPLEMENTAL SCALE SQ SCH ×4 (05:14→20:48)
[2017-03-01] MEDS: PANTOPRAZOLE SOD 40 MG DELAYED RELEASE TAB PO SCH (08:15)
[2017-03-01] MEDS: ASPIRIN EC 81 MG TABEC PO SCH (08:15)
[2017-03-01] MEDS: DOCUSATE SODIUM 100 MG CAP PO SCH ×2 (08:20→20:46)
[2017-03-01] MEDS: LACTULOSE SYRUP 20 GM/30 ML CUP PO SCH (08:20)
[2017-03-01] MEDS: POLYETHYLENE GLYCOL 17 GM PKG PO SCH (08:20)
[2017-03-01] MEDS: TIMOLOL MALEATE 0.5% OPHT SOLN 5 ML BTL EACH EYE SCH ×2 (08:42→20:47)
[2017-03-01] MEDS: SODIUM CHLORIDE 0.9% FLUSH 10 ML FLUSH IV FLUSH SCH ×2 (08:44→20:47)
[2017-03-01] MEDS: CALCITONIN SALMON INJ 400 UNITS/2 ML VIAL SQ SCH ×2 (09:44→20:54)
--- NOTE | 2017-03-01 11:39 | HHI.NPPN ---
Subjective History of Present Illness 81 year old with back surgery CKD with NATHAN and hypercalcemia Objective Data Data 02/28/17 03/01/17 19:00 07:00 Intake Total 240 ml 1722 ml Output Total 350 ml 350 ml Balance -110 ml 1372 ml Intake Oral 240 ml 240 ml IV Total 1482 ml Output Urine Total 350 ml 350 ml # Voids 0 # Bowel Movements 0 Vital Signs Date Time Temp Pulse Resp B/P Pulse Ox O2 Delivery O2 Flow Rate FiO2 03/01/17 09:00 70 03/01/17 08:00 98.6 82 21 110/67 98 03/01/17 07:00 81 03/01/17 06:00 78 03/01/17 04:00 72 03/01/17 04:00 97.1 72 15 90/54 95 03/01/17 02:00 82 03/01/17 00:00 82 03/01/17 00:00 98.2 82 21 94/54 97 02/28/17 22:00 96 02/28/17 20:00 98 02/28/17 20:00 98.9 100 22 101/58 96 02/28/17 19:30 94 Nasal Cannula 2.00 02/28/17 16:00 98.7 96 17 102/58 94 02/28/17 12:00 97.9 108 22 83/60 98 -: 02/28/17 0356 02/28/172034 Physical Exam General Appearance: Well Developed, Well Nourished Neck Neck Exam: Neck Supple Pulmonary Resp Exam: Clear Bilaterally, No Distress Cardiology CV Exam: Regular Gastrointestinal/Abdomen GI Exam: Soft, Distended Extremeties Extremities Exam: Trace Edema Neurologic Neuro Exam: Alert Assessment/Plan Problem List: (1) NATHAN (acute kidney injury) Plan: History of CKD , BP low give fluid bolus NS 500 CC Inc NS at 83 cc /hr Calcium higher Pamidronate ordered (2) Lumbar stenosis with neurogenic claudication Plan: s/p L5-S1 transforaminal interbody fusion/ L4, L5 and S1 decompressive laminectomy and fixation on 02/19/[address] Dumont. cleared for discharge when medical issues are managed per neurosurgery he declined rehab placement, home with home health care/PT/OT pain medications PRN (3) HTN (hypertension), benign Plan: BP borderline low, off antihypertensives (4) Diabetes mellitus type 2, noninsulin dependent Plan: home metformin has been held continue insulin, follow glucose, goal 140-180 mg/dL (5) Hypercalcemia Plan: give Pamidronate 60 mg Carlos Reyes MD March 01, 2017 11:39
[2017-03-01] MEDS ORDERED: PAMIDRONATE INJ 60 MG in SODIUM CHLORID 0.9% 500 ML INJ 500 ML IV ONE (11:45)
[2017-03-01] MEDS ORDERED: SODIUM CHLORID 0.9% 500 ML INJ 500 ML IV ONE (11:45)
[2017-03-01] MEDS: GABAPENTIN 300 MG CAP PO SCH ×2 (12:17→20:47)
[2017-03-01] MEDS ORDERED: PROPOFOL 200 MG/20 ML AMP IV ONE (13:27)
[2017-03-01] MEDS ORDERED: HYDROmorphone HCL PF 1 MG/ML VIAL IV PUSH ONE (14:15)
--- NOTE | 2017-03-01 15:22 | RADRPT ---
EXAM DATE/TIME: 03/01/2017 14:41 [facility] COMPARISON: CT ABDOMEN & PELVIS W/O CONTRAST, February 27, 2017, 17:13. INDICATIONS : Right sided abdominal pain. MEDICAL HISTORY : Diabetes mellitus type II. Hypertension Glaucoma; herniated disc; peripher al neuropathy; TIAL SURGICAL HISTORY : Appendectomy. Fusion, lumbar. ENCOUNTER: Initial ACUITY: 2 weeks PAIN SCORE: 7/10 LOCATION: Right lower quadrant FINDINGS: Radiographic contrast is seen in the ascending colon obscuring a potential renal stone. Minimal small bowel gas is noted. There is no free air or obstruction. Previous CT scan dated 02/27/2017 had shown small kidneys without evidence for stone. CONCLUSION: Nonspecific bowel gas pattern. Justice Muhammad MD FACR on March 01, 2017 at 15:15 Board Certified Radiologist. This report was verified electronically.
--- NOTE | 2017-03-01 15:44 | HHI.CCPN ---
Subjective Remarks/Hospital Course Hospital Course: 81 y/o man s/p lumbar spine surgery for intractable pain. Uneventful perioperative course but has retained significant amount of fluid manifested as ascites and peripheral edema, particularly prominent in the legs. His SOB has improved modestly after diuresis. CXR shows elevated right diaphragm and good lung expansion. No signs of venous congestion. CT abdomen concerning for metastatic disease and ascites. He denies chest pain or abdominal pain. Subjective: 02/28: still persistently oliguric. cr continues to rise. still dysnpeic on exertion, but hypoxia has improved. 03/01: improving after volume resuscitation overnight. Cr plateaued. this morning some mild abdominal pain after EGD. KUB negative for acute disease process. Objective Vital Signs Date Time Temp Pulse Resp B/P Pulse Ox O2 Delivery O2 Flow Rate FiO2 03/01/17 12:00 98.6 84 21 98/58 95 03/01/17 11:45 Nasal Cannula 2.00 Intake and Output 02/28/17 02/28/17 03/01/17 08:00 16:00 00:00 Intake Total 150 ml 240 ml 240 ml Output Total 575 ml 350 ml 350 ml Balance -425 ml -110 ml -110 ml Result Diagram: 02/28/176 02/28/172034 Objective Remarks Gen: Elderly man Head: Normal. Neck: Chronically stiff, airway widely patent. Lungs: Clear, no wheezes or crackles. No tachypnea. Heart: RRR, sinus by tele. Abdomen: Large, rotund, soft. mild tenderness over RLQ, guarding. Extremities: Generalized 2+ edema lowers. Well perfused. Neuro: O X 3, alert, cooperative. Moves 4 limbs to command. A/P Assessment and Plan Assessment: 1. Generalized edema. 2. Shortness of breath. 3. S/P lumbar spine surgery. 4. DM, 2 5. Acute kidney injury- stabilizing. 6. intravascular hypovolemia Plan: -- agree with nephrology: increase mivf. -- f/u GI procedure -- will keep 1 more day in ICU. once Cr downtrends, I think he can be safely transferred to floor. Overall impression: elderly male, recently post-op, but clearly multiple medical comorbidities, frail, may not do well long-term. The CT abdomen raises the possibility of metastatic disease which further complicates his evaluation. We will follow with you. Sánchez Burns MD March 01, 2017 15:44
[2017-03-01] MEDS: SODIUM CHLOR 0.9% 1000 ML INJ 1,000 ML IV SCH (16:42)
[2017-03-01] MEDS: traZODone HCL 50 MG TAB PO SCH (20:46)
[2017-03-01] MEDS: LATANOPROST 0.005% OPHT SOLN 2.5 ML BTL EACH EYE SCH (20:47)
[2017-03-01] MEDS: ACETAMINOPHEN/HYDROcodone 325 MG/10 MG TAB PO PRN (20:47)
[2017-03-01] MEDS: ATORVASTATIN 10 MG TAB PO SCH (20:47)
--- NOTE | 2017-03-01 22:58 | HHI.NSPN ---
History Chief Complaint: Incisional pain but controlled. Interval History 81-year-old male status post TLIF Postoperative increased postop ascites. Exam Results Vital Signs Date Time Temp Pulse Resp B/P Pulse Ox O2 Delivery O2 Flow Rate FiO2 03/01/17 22:05 96 Nasal Cannula 5.00 03/01/17 20:00 97.5 96 24 93/57 Intake and Output 02/28/17 02/28/17 03/01/17 08:00 16:00 00:00 Intake Total 150 ml 240 ml 240 ml Output Total 575 ml 350 ml 350 ml Balance -425 ml -110 ml -110 ml Physical Examination Resp: CTA bilaterally. On O2 NC. Heart: NSR no murmurs Abd: Distended but Soft positive bs Skin: no cyanosis or erythema. He has bilateral LE moderate edema, compression stockings in place. No signs of DVT. Muscle: Moves LEs with good strength. Neuro: Pt awake and alert. follows commands well. speech clear and appropriate. Neuropathy in feet. Indicates stable sensation in the lower extremities compared to preoperative. No significant varus area pain with range of motion. Continues to have moderate low back pain Medical Decision Making Impression and Plan Impression: 1. Stable neurologic exam following TLIF 2. Acute kidney injury-improving Plan: Findings were discussed with the patient. He is stable for transfer to regular floor from neurosurgery standpoint. GI workup in progress. [employer] Attendant following Nico Molina MD March 01, 2017 22:58
[2017-03-02] VITALS (9 sets, daily range): BP systolic 95–137; BP diastolic 56–84; PULSE 87–112; RESP 15–20; TEMP 95.4–97.7; O2SAT 93–99
[2017-03-02] MEDS: ACETAMINOPHEN/HYDROcodone 325 MG/10 MG TAB PO PRN ×4 (03:08→22:57)
[2017-03-02] MEDS: SODIUM CHLOR 0.9% 1000 ML INJ 1,000 ML IV SCH ×2 (03:12→15:15)
[2017-03-02 05:02] LABS: BICARBONATE 24.9 MEQ/L (21.0-32.0); POTASSIUM 5.4 MEQ/L (3.5-5.1)
[2017-03-02] MEDS: INSULIN NovoLIN REGULAR SUPPLEMENTAL SCALE SQ SCH ×4 (05:15→20:46)
--- NOTE | 2017-03-02 07:01 | HHI.CCPN ---
Subjective Remarks/Hospital Course Hospital Course: 81 y/o man s/p lumbar spine surgery for intractable pain. Uneventful perioperative course but has retained significant amount of fluid manifested as ascites and peripheral edema, particularly prominent in the legs. His SOB has improved modestly after diuresis. CXR shows elevated right diaphragm and good lung expansion. No signs of venous congestion. CT abdomen concerning for metastatic disease and ascites. He denies chest pain or abdominal pain. Subjective: 02/28: still persistently oliguric. cr continues to rise. still dysnpeic on exertion, but hypoxia has improved. 03/01: improving after volume resuscitation overnight. Cr plateaued. this morning some mild abdominal pain after EGD. KUB negative for acute disease process. 03/02: Cr stable, at this point, patient appears more clinically euvolemic. likely Cr is ATN related at this point. uop continues to increase overnight to ~ 900cc/24h. GI workup ongoing. Objective Vital Signs Date Time Temp Pulse Resp B/P Pulse Ox O2 Delivery O2 Flow Rate FiO2 03/02/17 04:00 95 03/02/17 04:00 97.6 15 95/63 97 03/01/17 22:05 Nasal Cannula 5.00 Intake and Output 03/01/17 03/01/17 03/02/17 08:00 16:00 00:00 Intake Total 1482 ml 952 ml 1137 ml Output Total 0 ml 550 ml 400 ml Balance 1482 ml 402 ml 737 ml Result Diagram: 02/28/17 0356 03/02/17 0400 Objective Remarks Gen: Elderly man Head: Normal. Neck: Chronically stiff, airway widely patent. Lungs: Clear, no wheezes or crackles. No tachypnea. Heart: RRR, sinus by tele. Abdomen: Large, rotund, soft. mild tenderness over RLQ, guarding. Extremities: Generalized 2+ edema lowers. Well perfused. Neuro: O X 3, alert, cooperative. Moves 4 limbs to command. A/P Assessment and Plan Assessment: 1. Generalized edema. 2. Shortness of breath- resolving. 3. S/P lumbar spine surgery. 4. DM, 2 5. Acute kidney injury- stabilizing. 6. intravascular hypovolemia- resolved. Plan: -- continue gentle fluid hydration -- stable for transfer to floor. -- appreciate nephrology continuing to follow and assist with NATHAN. Overall impression: elderly male, recently post-op, but clearly multiple medical comorbidities, frail, may not do well long-term. The CT abdomen raises the possibility of metastatic disease which further complicates his evaluation. CCM will sign-off. please re-consult as needed. transfer to floor. Sánchez Burns MD March 02, 2017 07:01
[2017-03-02] MEDS: DOCUSATE SODIUM 100 MG CAP PO SCH ×2 (08:04→20:38)
[2017-03-02] MEDS: SODIUM CHLORIDE 0.9% FLUSH 10 ML FLUSH IV FLUSH SCH ×2 (08:04→20:38)
[2017-03-02] MEDS: TIMOLOL MALEATE 0.5% OPHT SOLN 5 ML BTL EACH EYE SCH ×2 (08:04→20:42)
[2017-03-02] MEDS: LACTULOSE SYRUP 20 GM/30 ML CUP PO SCH (08:05)
[2017-03-02] MEDS: ENOXAPARIN SODIUM 40 MG/0.4 ML SYRINGE SQ SCH (08:05)
[2017-03-02] MEDS: ASPIRIN EC 81 MG TABEC PO SCH (08:05)
[2017-03-02] MEDS: PANTOPRAZOLE SOD 40 MG DELAYED RELEASE TAB PO SCH (08:05)
[2017-03-02] MEDS: POLYETHYLENE GLYCOL 17 GM PKG PO SCH (08:05)
[2017-03-02] MEDS: GABAPENTIN 300 MG CAP PO SCH ×2 (11:45→20:38)
--- NOTE | 2017-03-02 12:45 | HHI.GIFU ---
Subjective Remarks No specific symptoms. Objective Vitals I&O Vital Signs Date Time Temp Pulse Resp B/P Pulse Ox O2 Delivery O2 Flow Rate FiO2 03/02/17 12:07 97.0 90 20 99/56 98 03/02/17 10:30 Nasal Cannula 4.00 03/02/17 10:00 18 03/02/17 08:00 97.6 95 20 99/60 99 03/02/17 07:00 97 Nasal Cannula 4.00 Humidified 03/02/17 07:00 98 03/02/17 04:00 95 03/02/17 04:00 97.6 101 15 95/63 97 03/02/17 00:00 102 03/02/17 00:00 97.7 101 17 96/68 95 03/01/17 22:05 96 Nasal Cannula 5.00 03/01/17 22:00 103 03/01/17 20:00 97.5 96 24 93/57 99 03/01/17 20:00 Nasal Cannula 5.00 Humidified 03/01/17 20:00 93 03/01/17 16:00 98.0 89 19 103/62 97 03/01/17 15:00 89 I/O 03/01/17 03/01/17 03/01/17 03/02/17 03/02/17 03/02/17 07:00 15:00 23:00 07:00 15:00 23:00 Intake Total 1482 ml 952 ml 1137 ml 757 ml Output Total 0 ml 550 ml 400 ml 200 ml Balance 1482 ml 402 ml 737 ml 557 ml Intake Oral 480 ml 120 ml IV Total 1482 ml 952 ml 657 ml 637 ml Output Urine Total 0 ml 550 ml 400 ml 200 ml # Bowel Movements 0 0 0 Laboratory Laboratory Tests Test 03/02/17 04:00 Sodium Level 135 Potassium Level 5.4 Chloride Level 98 Carbon Dioxide Level 24.9 Anion Gap 12 Blood Urea Nitrogen 54 Creatinine 2.07 Estimat Glomerular Filtration 31 Rate Random Glucose 108 Calcium Level 11.6 Protein Corrected Calcium Total Protein 5.4 Physical Exam NECK: Neck is supple, no JVD, no lymphadenopathy. CHEST: Chest is clear to auscultation and percussion. CARDIAC: Regular rate and rhythm with no murmur gallop or rubs. ABDOMEN: Soft, nondistended, nontender; no hepatosplenomegaly; bowel sounds are present in all four quadrants. EXTREMITIES: No clubbing, cyanosis, or edema. Assessment and Plan Plan - Multiple Variable size nodules in the duodenal bulb, biopsies taken - Gastric Polyps, benign in appearance, biopsies taken. - Ascites- CT above, patient denies hx of liver dz - CKD- nephrology on the case - lumbar spinal stenosis/radiculopathy who was admitted on 02/19/17 for L5-S1 transforaminal interbody fusion/ L4, L5 and S1 decompressive laminectomy and fixation. - Hx of HTN, diabetes mellitus, KARYNA, RLS, and chronic back pain per attending with GI consulted for abnormal findings on CT. Plan: - CELIO - Await biopsies results - Lovenox resumed - LFTs - Consider diagnostic paracentesis/ laparoscopic exploration if biopsies negative - Supportive care Mp Castorena MD March 02, 2017 12:45
--- NOTE | 2017-03-02 15:09 | HHI.NPPN ---
Subjective History of Present Illness 81 year old with back surgery CKD with NATHAN and hypercalcemia Objective Data Data 03/01/17 03/02/17 19:00 07:00 Intake Total 952 ml 1894 ml Output Total 550 ml 600 ml Balance 402 ml 1294 ml Intake Oral 600 ml IV Total 952 ml 1294 ml Output Urine Total 550 ml 600 ml # Bowel Movements 0 0 Vital Signs Date Time Temp Pulse Resp B/P Pulse Ox O2 Delivery O2 Flow Rate FiO2 03/02/17 12:07 97.0 90 20 99/56 98 03/02/17 10:30 Nasal Cannula 4.00 03/02/17 10:00 18 03/02/17 08:00 97.6 95 20 99/60 99 03/02/17 07:00 97 Nasal Cannula 4.00 Humidified 03/02/17 07:00 98 03/02/17 04:00 95 03/02/17 04:00 97.6 101 15 95/63 97 03/02/17 00:00 102 03/02/17 00:00 97.7 101 17 96/68 95 03/01/17 22:05 96 Nasal Cannula 5.00 03/01/17 22:00 103 03/01/17 20:00 97.5 96 24 93/57 99 03/01/17 20:00 Nasal Cannula 5.00 Humidified 03/01/17 20:00 93 03/01/17 16:00 98.0 89 19 103/62 97 -: 02/28/17 0356 03/02/17 0400 Physical Exam General Appearance: Well Developed Eyes Eye Exam: Pupils Equal Neck Neck Exam: Neck Supple Pulmonary Resp Exam: Clear Bilaterally, Breath Sounds Equal Cardiology CV Exam: Regular Gastrointestinal/Abdomen GI Exam: Distended Extremeties Extremities Exam: Trace Edema Neurologic Neuro Exam: Alert, Awake Assessment/Plan Problem List: (1) NATHAN (acute kidney injury) Plan: History of CKD , BP low Cr 2.07 K 5.4 give Kayexalate 30 gm Inc NS at 83 cc /hr Calcium 11.[address] Greenberg to follow (2) Lumbar stenosis with neurogenic claudication Plan: s/p L5-S1 transforaminal interbody fusion/ L4, L5 and S1 decompressive laminectomy and fixation on 02/19/[address] Dumont. cleared for discharge when medical issues are managed per neurosurgery he declined rehab placement, home with home health care/PT/OT pain medications PRN (3) HTN (hypertension), benign Plan: BP borderline low, off antihypertensives (4) Diabetes mellitus type 2, noninsulin dependent Plan: home metformin has been held continue insulin, follow glucose, goal 140-180 mg/dL (5) Hypercalcemia Plan: improved after Pamidronate 60 mg Carlos Reyes MD March 02, 2017 15:08
[2017-03-02] MEDS ORDERED: SODIUM POLYSTYRENE SULFONATE SUSP 15 GM/60 ML CUP PO ONE (15:15)
--- NOTE | 2017-03-02 17:52 | HHI.NSPN ---
History Chief Complaint: Incisional pain but controlled. Interval History 81-year-old male status post TLIF Postoperative increased postop ascites. Exam Results Vital Signs Date Time Temp Pulse Resp B/P Pulse Ox O2 Delivery O2 Flow Rate FiO2 03/02/17 16:45 95.8 87 20 108/62 97 03/02/17 10:30 Nasal Cannula 4.00 Intake and Output 03/01/17 03/01/17 03/02/17 08:00 16:00 00:00 Intake Total 1482 ml 952 ml 1137 ml Output Total 0 ml 550 ml 400 ml Balance 1482 ml 402 ml 737 ml Physical Examination Resp: CTA bilaterally. On O2 NC. Respirations slightly shallow and labored Heart: NSR no murmurs Abd: Distended but Soft positive bs Skin: no cyanosis or erythema. He has bilateral LE moderate edema, compression stockings in place. No signs of DVT. Neuro: Pt awake and alert. follows commands well. speech clear and appropriate. Neuropathy in feet. Indicates stable sensation in the lower extremities compared to preoperative. No significant varus area pain with range of motion. Continues to have moderate low back pain. Sensation intact by touch lower extremities Strength 5/5 throughout lower extremities Medical Decision Making Impression and Plan Impression: 1. Stable neurologic exam following TLIF 2. Acute kidney injury-improving Plan: Findings were discussed with the patient. Continue physical therapy. Continue to mobilize out of bed GI workup in progress. Medicine service following Nico Molina MD March 02, 2017 17:52
--- NOTE | 2017-03-02 17:53 | HHI.PR ---
Subjective Remarks No new complaints. Nursing reports that pt slept most of the day. Pt drank liquids today, but nothing solid. Pt answered questions appropriately. Objective Vitals Vital Signs Date Time Temp Pulse Resp B/P Pulse Ox O2 Delivery O2 Flow Rate FiO2 03/02/17 16:45 95.8 87 20 108/62 97 03/02/17 12:07 97.0 90 20 99/56 98 03/02/17 10:30 Nasal Cannula 4.00 03/02/17 10:00 18 03/02/17 08:00 97.6 95 20 99/60 99 03/02/17 07:20 98 Nasal Cannula 5.00 03/02/17 07:00 97 Nasal Cannula 4.00 Humidified 03/02/17 07:00 98 03/02/17 04:00 95 03/02/17 04:00 97.6 101 15 95/63 97 03/02/17 00:00 102 03/02/17 00:00 97.7 101 17 96/68 95 03/01/17 22:05 96 Nasal Cannula 5.00 03/01/17 22:00 103 03/01/17 20:00 97.5 96 24 93/57 99 03/01/17 20:00 Nasal Cannula 5.00 Humidified 03/01/17 20:00 93 03/01/17 03/01/17 03/02/17 15:00 23:00 07:00 Intake Total 952 ml 1137 ml 757 ml Output Total 550 ml 400 ml 200 ml Balance 402 ml 737 ml 557 ml Intake Oral 480 ml 120 ml IV Total 952 ml 657 ml 637 ml Output Urine Total 550 ml 400 ml 200 ml # Bowel Movements 0 0 0 Result Diagram: 02/28/17 0356 03/02/17 0400 Imaging Last Impressions Abdomen X-Ray 03/01/17 0000 Signed Impressions: Service Date/Time: Wednesday, March 01, 2017 14:41 - CONCLUSION: Nonspecific bowel gas pattern. Justice Muhammad MD FACR Renal Ultrasound 02/28/17 0000 Signed Impressions: Service Date/Time: Tuesday, February 28, 2017 21:46 - CONCLUSION: 1. Small volume ascites. 2. No obstruction. 3. Totally decompressed urinary bladder which is poorly evaluated. Meliton Campbell Jr., MD Lower Extremity Ultrasound 02/28/17 0000 Signed Impressions: Service Date/Time: Tuesday, February 28, 2017 08:47 - CONCLUSION: No DVT in either lower extremity. Johny Woods MD Chest CT 02/27/17 0000 Signed Impressions: Service Date/Time: February 17:10 - CONCLUSION: 1. Elevated right hemidiaphragm with basilar atelectasis and scarring. No effusions. No adenopathy. See abdomen CT for findings of abnormal fluid accumulation below the diaphragms. Hang Tyson MD Abdomen/Pelvis CT 02/27/17 0000 Signed Impressions: Service Date/Time: February 17:13 - CONCLUSION: 1. Ascites and diffuse omental caking/thickening typical of peritoneal carcinomatosis. Primary uncertain but possibly gastric as there appears to be some wall thickening along the greater curvature of the body. Direct visualization with endoscopy recommended. 2. I don't clearly see the appendix. 3. No other evidence of metastatic disease. 4. Umbilical hernia. Adriel Krueger MD Chest X-Ray 02/26/17 0800 Signed Impressions: Service Date/Time: Sunday, February 26, 2017 09:16 - CONCLUSION: Normal examination. Lamin Spicer MD Lumbar Spine X-Ray 02/19/17 0000 Signed Impressions: Service Date/Time: Sunday, February 19, 2017 08:46 - CONCLUSION: 1. Postsurgical changes as above. Georges Cardozo MD Objective Remarks General: NAD, AAOx3 Chest: clear x b/l Cardiac: Regular Abd: +BS, soft ND/NT Ext: Bilateral LE wraps in place, legs still swollen A/P Problem List: (1) Ascites Status: Acute Plan: - comgmt with GI - CT abd/pelvis 02/27/17 - Ascites and diffuse omental caking/thickening typical of peritoneal carcinomatosis. Primary uncertain but possibly gastric as there appears to be some wall thickening along the greater curvature of the body. Direct visualization with endoscopy recommended. - EGD (03/01/17) performed by dr. Kell brown variable size nodules in the duodenal bulb, biopsies taken - if biopsies are negative, then pt will need diagnostic paracentesis - hypercalcemia (2) Hypercalcemia Status: Acute Plan: - pt received miacalcin 03/01 - pt received pamidronate 03/01 - serum calcium 12.1 (02/28/17), 11.6 (03/02/17) - repeat labs in AM (3) Hyperkalemia Status: Acute Plan: - pt received kayexalate 03/02 - repeat BMP in AM (4) NATHAN (acute kidney injury) Status: Acute Plan: - comgmt with nephrology - increased Cr possibly d/t ATN - IVFs - observe (5) Lumbar stenosis with neurogenic claudication Status: Acute Plan: - Pt s/p L5-S1 transforaminal interbody fusion/ L4, L5 and S1 decompressive laminectomy and fixation on 02/19/[address] Dumont. - Post-op pain control per Neurosurgery - PT daily - IS - Constipation precautions - LSO brace when out of bed - pt cleared for discharge by NSX once medically stable. - DVT prophylaxis (6) HTN (hypertension), benign Status: Chronic Plan: - See above. (7) Diabetes mellitus type 2, noninsulin dependent Status: Chronic Plan: - NovoLog SSI - Accu checks - Metformin continued (8) Hyperlipidemia Status: Chronic Plan: - Cont. home meds (9) KARYNA (obstructive sleep apnea) Status: Chronic [place] Holman DO March 02, 2017 17:53
[2017-03-02] MEDS: RESP: ALBUTEROL 2.5 MG/3 ML NEB (PRN) NEB (18:52)
[2017-03-02] MEDS: ATORVASTATIN 10 MG TAB PO SCH (20:38)
[2017-03-02] MEDS: traZODone HCL 50 MG TAB PO SCH (20:38)
[2017-03-02] MEDS: LATANOPROST 0.005% OPHT SOLN 2.5 ML BTL EACH EYE SCH (20:42)
[2017-03-02] MEDS: CYCLOBENZAPRINE HCL 10 MG TAB PO PRN (20:46)
[2017-03-03] VITALS (10 sets, daily range): BP systolic 88–109; BP diastolic 39–63; PULSE 84–117; RESP 16–22; TEMP 96.5–97.9; O2SAT 94–97
[2017-03-03] MEDS: SODIUM CHLOR 0.9% 1000 ML INJ 1,000 ML IV SCH (03:18)
[2017-03-03] MEDS: INSULIN NovoLIN REGULAR SUPPLEMENTAL SCALE SQ SCH ×4 (06:17→21:00)
[2017-03-03] MEDS: RESP: ALBUTEROL 2.5 MG/3 ML NEB (PRN) NEB (07:45)
[2017-03-03] MEDS: LACTULOSE SYRUP 20 GM/30 ML CUP PO SCH (09:00)
[2017-03-03] MEDS: DOCUSATE SODIUM 100 MG CAP PO SCH ×2 (09:00→21:03)
[2017-03-03] MEDS: POLYETHYLENE GLYCOL 17 GM PKG PO SCH (09:00)
[2017-03-03] MEDS: SODIUM CHLORIDE 0.9% FLUSH 10 ML FLUSH IV FLUSH SCH ×2 (09:00→21:06)
[2017-03-03] MEDS: ASPIRIN EC 81 MG TABEC PO SCH (09:02)
[2017-03-03] MEDS: ENOXAPARIN SODIUM 40 MG/0.4 ML SYRINGE SQ SCH (09:02)
[2017-03-03] MEDS: PANTOPRAZOLE SOD 40 MG DELAYED RELEASE TAB PO SCH (09:02)
[2017-03-03] MEDS: TIMOLOL MALEATE 0.5% OPHT SOLN 5 ML BTL EACH EYE SCH ×2 (09:03→21:05)
[2017-03-03 11:11] LABS: BICARBONATE 19.9 MEQ/L (21.0-32.0); POTASSIUM 4.6 MEQ/L (3.5-5.1)
--- NOTE | 2017-03-03 11:28 | HHI.PR ---
Subjective Remarks miserable. diffuse swelling and abdomen distention. begging for paracentesis. "I can't go another night like this." buttock pain. Objective Vitals heent neg heart reg lung diminiished bs abd distended ext anasarca Vital Signs Date Time Temp Pulse Resp B/P Pulse Ox O2 Delivery O2 Flow Rate FiO2 03/03/17 08:10 96.5 117 22 96/54 95 03/03/17 08:00 99 03/03/17 07:45 97 Nasal Cannula 2.00 03/03/17 04:00 97.6 103 20 109/63 97 03/03/17 00:00 97.1 94 20 103/60 95 03/02/17 23:15 Nasal Cannula 4.00 03/02/17 23:00 102 03/02/17 20:00 95.4 112 20 137/84 93 03/02/17 18:52 Nasal Cannula 3.50 03/02/17 16:45 95.8 87 20 108/62 97 03/02/17 12:07 97.0 90 20 99/56 98 03/02/17 03/02/17 03/03/17 15:00 23:00 07:00 Intake Total 240 ml Output Total 100 ml Balance -100 ml 240 ml Intake Oral 240 ml Output Urine Total 100 ml # Voids 2 1 # Bowel Movements 2 4 Result Diagram: 02/28/17 0356 03/03/17 1007 Imaging Last Impressions Abdomen X-Ray 03/01/17 0000 Signed Impressions: Service Date/Time: Wednesday, March 01, 2017 14:41 - CONCLUSION: Nonspecific bowel gas pattern. Justice Muhammad MD FACR Renal Ultrasound 02/28/17 0000 Signed Impressions: Service Date/Time: Tuesday, February 28, 2017 21:46 - CONCLUSION: 1. Small volume ascites. 2. No obstruction. 3. Totally decompressed urinary bladder which is poorly evaluated. Meliton Campbell Jr., MD Lower Extremity Ultrasound 02/28/17 0000 Signed Impressions: Service Date/Time: Tuesday, February 28, 2017 08:47 - CONCLUSION: No DVT in either lower extremity. Johny Woods MD Chest CT 02/27/17 0000 Signed Impressions: Service Date/Time: February 17:10 - CONCLUSION: 1. Elevated right hemidiaphragm with basilar atelectasis and scarring. No effusions. No adenopathy. See abdomen CT for findings of abnormal fluid accumulation below the diaphragms. Hang Tyson MD Abdomen/Pelvis CT 02/27/17 0000 Signed Impressions: Service Date/Time: February 17:13 - CONCLUSION: 1. Ascites and diffuse omental caking/thickening typical of peritoneal carcinomatosis. Primary uncertain but possibly gastric as there appears to be some wall thickening along the greater curvature of the body. Direct visualization with endoscopy recommended. 2. I don't clearly see the appendix. 3. No other evidence of metastatic disease. 4. Umbilical hernia. Adriel Krueger MD Chest X-Ray 02/26/17 0800 Signed Impressions: Service Date/Time: Sunday, February 26, 2017 09:16 - CONCLUSION: Normal examination. Lamin Spicer MD Lumbar Spine X-Ray 02/19/17 0000 Signed Impressions: Service Date/Time: Sunday, February 19, 2017 08:46 - CONCLUSION: 1. Postsurgical changes as above. Georges Cardozo MD A/P Problem List: (1) Ascites Status: Acute Plan: - CT abd/pelvis 02/27/17 - Ascites and diffuse omental caking/thickening typical of peritoneal carcinomatosis. Primary uncertain but possibly gastric as there appears to be some wall thickening along the greater curvature of the body. Direct visualization with endoscopy recommended. - EGD (03/01/17) performed by dr. Castorena - stephanie variable size nodules in the duodenal bulb, biopsies taken - biopsies pending -ask radiology to perform diagnostic and therapeutic paracentesis ..pt developing worsening anasarca. ascites -spoke to dr Greenberg. stop ivf. start iv diuresis. paracentesis (2) NATHAN (acute kidney injury) Status: Acute Plan: - increased Cr possibly d/t ATN stop ivf. pt getting volume overloaded iv diuresis per renal. ?hemodialysis (3) Hypercalcemia Status: Acute Plan: - pt received miacalcin 03/01 - pt received pamidronate 03/01 - repeat labs in AM (4) Hyperkalemia Status: Acute Plan: kayexalate given (5) Lumbar stenosis with neurogenic claudication Status: Acute Plan: - Pt s/p L5-S1 transforaminal interbody fusion/ L4, L5 and S1 decompressive laminectomy and fixation on 02/19/[address] Dumont. - Post-op pain control per Neurosurgery - PT daily - IS - Constipation precautions - LSO brace when out of bed - DVT prophylaxis (6) HTN (hypertension), benign Status: Chronic Plan: - See above. (7) Diabetes mellitus type 2, noninsulin dependent Status: Chronic Plan: - NovoLog SSI - Accu checks (8) Hyperlipidemia Status: Chronic Plan: - Cont. home meds (9) KARYNA (obstructive sleep apnea) Status: Chronic Emil Ghotra MD March 03, 2017 11:28
--- NOTE | 2017-03-03 11:30 | HHI.NPPN ---
Subjective History of Present Illness 81 y/o male, was admitted on 02/19 for lumbar surgery, since he has had chronic pain for years. Other PMH of obesity, DM II, HTN, KARYNA, RLS, and CKD, has been following with me in the office. His baseline Creatinine is close to 1.5. Additional Remarks Patient is alert, now sitting on recliner, has SOB on exertion and increase swelling of legs. Review of Systems General Constitutional: Fatigue Cardiovascular Cardiac: MOSELEY Objective Data Data 03/02/17 03/03/17 19:00 07:00 Intake Total 240 ml Output Total 100 ml Balance -100 ml 240 ml Intake Oral 240 ml Output Urine Total 100 ml # Voids 3 # Bowel Movements 6 Vital Signs Date Time Temp Pulse Resp B/P Pulse Ox O2 Delivery O2 Flow Rate FiO2 03/03/17 08:10 96.5 117 22 96/54 95 03/03/17 08:00 99 03/03/17 07:45 97 Nasal Cannula 2.00 03/03/17 04:00 97.6 103 20 109/63 97 03/03/17 00:00 97.1 94 20 103/60 95 03/02/17 23:15 Nasal Cannula 4.00 03/02/17 23:00 102 03/02/17 20:00 95.4 112 20 137/84 93 03/02/17 18:52 Nasal Cannula 3.50 03/02/17 16:45 95.8 87 20 108/62 97 03/02/17 12:07 97.0 90 20 99/56 98 -: 02/28/17 0356 03/03/17 1007 Physical Exam General Appearance: No Acute Distress, Comfortable Eyes Eye Exam: Pupils Equal Throat Throat Exam: Oral Mucosa [place] & Moist Neck Neck Exam: Neck Supple, Trachea Midline Pulmonary Resp Exam: No Distress, Rhonchi, Decreased Bases, Diminished Breath Sounds Cardiology CV Exam: Regular, Normal Sinus Rhythm Gastrointestinal/Abdomen GI Exam: Soft, Non-Tender, Bowel Sounds Present Extremeties Extremities Exam: Moderate Edema, Pitting Edema, Dependent Edema Neurologic Neuro Exam: Alert, Awake, Oriented Psychiatric Psych Exam: Appropriate Responses Assessment/Plan Problem List: (1) NATHAN (acute kidney injury) Plan: NATHAN from diminished renal perfusion due to hypotension, may have progressed to ATN electrolytes are unremarkable, he is fluid overloaded, see below at this time avoid nephrotoxic substances obtain UA for analysis, obtain urine electrolytes Creatinine is increasing, has more edema. Possibly has ATN, non oliguric, follow urine out put and BMP. To get abd. U/S, add Lasix. IVF stopped, K is normalized. (2) Lumbar stenosis with neurogenic claudication Plan: s/p L5-S1 transforaminal interbody fusion/ L4, L5 and S1 decompressive laminectomy and fixation on 02/19/[address] Dumont. cleared for discharge when medical issues are managed per neurosurgery he declined rehab placement, home with home health care/PT/OT pain medications PRN (3) HTN (hypertension), benign Plan: BP borderline low, hold antihypertensives (4) Diabetes mellitus type 2, noninsulin dependent Plan: home metformin has been held continue insulin, follow glucose, goal 140-180 mg/dL (5) Edema Plan: given Lasix 80 mg IV today needs diuresis, begin Bumex 1 mg BID, titrate as tolerated/needed monitor renal response to diuretic therapy follow weights, I/O, limit oral fluid intake, avoid IVF ordered LOVE [place], to elevate, low Na diet (6) Hypercalcemia Plan: may be due to immobility check PTH, vitamin D levels CT abd/chest/pelvis to rule out malignancy per hospitalist follow calcium levels Leland Greenberg MD March 03, 2017 11:30
[2017-03-03] MEDS: FUROSEMIDE 40 MG/4 ML VIAL IV PUSH SCH (11:43)
[2017-03-03] MEDS: GABAPENTIN 300 MG CAP PO SCH ×2 (11:43→21:03)
--- NOTE | 2017-03-03 13:34 | RADRPT ---
EXAM DATE/TIME: 03/03/2017 12:39 [facility] COMPARISON: CHEST PA & LAT, February 26, 2017, 9:16. INDICATIONS : Short of breath. MEDICAL HISTORY : Hypertension. Dyspnea. Renal disease. Diabetes. SURGICAL HISTORY : None. ENCOUNTER: Subsequent ACUITY: 2 days PAIN SCORE: 0/10 LOCATION: chest FINDINGS: Portable AP view of the chest demonstrates a normal-sized cardiac silhouette. Lungs are severely unde rinflated and there is mild bibasilar opacity. No effusion or pneumothorax is seen. Bones and soft ti ssues demonstrate no acute finding. CONCLUSION: Very underinflated examination with likely atelectasis at the lung bases. Otherwise, no acute finding is appreciated. Adriel Kenny MD on March 03, 2017 at 13:32 Board Certified Radiologist. This report was verified electronically.
[2017-03-03] MEDS: ACETAMINOPHEN/HYDROcodone 325 MG/10 MG TAB PO PRN (17:40)
--- NOTE | 2017-03-03 17:46 | PD.RAD ---
Post US Procedure Prog Note Pre Procedure Diagnosis: (1) Ascites Post Procedure Diagnosis: (1) Ascites Procedure Date: March 03, 2017 Supervising Radiologist: Adriel Alaniz Proceduralist/Assist: Yenni Alejandra RDMS Anesthesia: Local Plan of Activity Patient to Unit: Nursing Unit Patient Condition: Fair See PACS Report for procedural detail/treatment Drainage Procedure Procedure 1 Imaging Guidance: Ultrasound Side: Left Procedure Type: Paracentesis Georgian: 6 Drainage: Suction Fluid Description: Adriel Gipson MD March 03, 2017 17:46
[2017-03-03] MEDS ORDERED: LIDOCAINE HCL 1% PF 30 ML VIAL ONE (18:30)
--- NOTE | 2017-03-03 18:40 | RADRPT ---
EXAM DATE/TIME: 03/03/2017 17:06 [facility] COMPARISON: No previous studies available for comparison. EXTERNAL COMPARISON: [facility], CT ABDOMEN & PELVIS W CONTRAST, Jun 19 2012, November 13, 2010. INDICATIONS : Ascites. MEDICAL HISTORY : Osteoarthritis. Diabetes mellitus type 1. Cataracts. Glaucoma. Herniated disk. Peripheral neuropathy . Restless leg syndrome. TIA. Stage III renal failure. Depression. Anxiety. SURGICAL HISTORY : Appendectomy. Sinus surgery. Lumbar surgery. Right inguinal hernia repair. ENCOUNTER: Initial ACUITY: 1 week PAIN SCORE: 6/10 LOCATION: Left lower quadrant FLUID: Total volume of 7200 cc of cloudy, red fluid was removed. Fluid was sent to lab for ordered studies. TECHNIQUE: 1. Ultrasound guidance for abdominal paracentesis. 2. Paracentesis. The risks, benefits, and alternatives to ultrasound guided paracentesis were explained to the patient in detail including the risk of bleeding and infection. Written and verbal informed consent was obt ained. With the patient on the ultrasound table, ultrasound imaging was used to select the most appropriate approach for paracentesis. Overlying skin was prepped and draped in the usual sterile fashion and wi th a local anesthetic, a dermatotomy was made with an 11 blade scalpel. A 6 [place] [id number] ca theter was introduced into the peritoneal cavity and fluid was collected. The patient tolerated the procedure well and left the ultrasound suite in stable condition. CONCLUSION: Uncomplicated ultrasound guided paracentesis. Adriel Alaniz MD on March 03, 2017 at 18:38 Board Certified Radiologist. This report was verified electronically.
[2017-03-03 19:58] LABS: PERITONEAL EOS 12 %; PERITONEAL HISTIOCYTES 3 %; PERITONEAL LYMPHS 5 %; PERITONEAL MESOTHELIAL 1 %; PERITONEAL MONOS 2 %; PERITONEAL POLYS(SEGS) 77 %; PERITONEAL WBC 5597 /MM3 (0-10)
[2017-03-03] MEDS: traZODone HCL 50 MG TAB PO SCH (21:03)
[2017-03-03] MEDS: LATANOPROST 0.005% OPHT SOLN 2.5 ML BTL EACH EYE SCH (21:03)
[2017-03-03] MEDS: ATORVASTATIN 10 MG TAB PO SCH (21:04)
[2017-03-04] VITALS (34 sets, daily range): BP systolic 72–138; BP diastolic 42–72; PULSE 84–101; RESP 16–36; TEMP 95.7–99.3; O2SAT 94–98
[2017-03-04] MEDS ORDERED: SODIUM CHLORID 0.9% 500 ML INJ 500 ML IV ONE ×2 (00:15→13:15)
--- NOTE | 2017-03-04 00:33 | HHI.FPPN ---
Addendum to progress note ADDENDUM Reason for addendum: Additonal documentation Additional information [facility]AE called for hypotension at 00:00 on 03/04/2017. Residents responded. Subjective: Patient is responsive and denies any pain. His BP have been borderline / low throughout the day 93 - 96 mm Hg / 52-54 mm Hg. At 00:00 his BP decreased to 89/ 39. He was asymptomatic. Nursing denies any fevers. They report aggressive diureses (IV lasix daily) in addition to a therapeutic paracentesis, that removed "7 L of fluid". A SHAE was called for respiratory distress approximately 3 days ago. Denies headaches, chest pain or pressure, shortness of breath, inability to move his extremities, fevers, or chills. Objective: Vitals: 96% on 3 L, Pulse 80 bpm regular, BP 89/39, A febrile, RR 20. GEN: Appears slightly lethargic, but responding to questions appropriately. Denies being in pain. AA to Hospital, city and state. Very dry mucus membranes. CHEST: No accessory muscle use, S1 and S2 wnl, pulses equal toall extremities, 1 + pitting edema to chins b/l. RESP: CTAB ABD: DIffusely distended, small ecchymosis (3 cm diameter) at right lower quadrant), left lower quadrant at paracentesis site was not draining and non erythematous, BS present, not tender to palpation. EXT: Pitting edema as below NEURO: PERRL, EOM intact, full sensation to face, CN intact, 5/5 surveyor mine strength, moving all extremities equally. Assessment and Plan: 1) Hypotension Diff includes: sepsis (spontaneous bacterial peritonitis), dehydration, cardiogenic ([place], worsening CHF), acute blood loss from recent surgery. Likely 2/2 dehydration, in combination with recent paracentesis which removed 7 L of fluid (per nursing). PLAN: -Give 1L NS bolus, and check VS q 20 minutes until BP corrects to MAP > 65 -CBC, CMP, and lactic acid STAT -Head of bed flat -Consider adding antibiotic therapy if BP is not correcting and significant lab findings -Notify attending physician with update on the acute findings. roxannaw Daron Solis Dr., MD R2 March 04, 2017 00:33
[2017-03-04 01:49] LABS: HEMATOCRIT 36.2 % (39.0-51.0); MEAN CELL VOLUME 93.1 FL (80.0-100.0); MEAN CORPUSCULAR HEMOGLOBIN 30.5 PG (27.0-34.0); MEAN CORPUSCULAR HGB CONC 32.7 % (32.0-36.0); PLATELET COUNT 251 TH/MM3 (150-450); RED BLOOD COUNT 3.88 MIL/MM3 (4.50-5.90); RED CELL DISTRIBUTION WIDTH 15.2 % (11.6-17.2); REVIEW FLAG FINAL; WHITE BLOOD COUNT 21.4 TH/MM3 (4.0-11.0)
[2017-03-04 02:15] LABS: BICARBONATE 22.5 MEQ/L (21.0-32.0); POTASSIUM 4.5 MEQ/L (3.5-5.1)
[2017-03-04] MEDS ORDERED: MIDODRINE 5 MG TAB PO SCH (02:15)
[2017-03-04] MEDS ORDERED: ALBUMIN HUMAN 5% 25 GM/500 ML BOTTLE IV SCH (04:15)
[2017-03-04] MEDS: INSULIN NovoLIN REGULAR SUPPLEMENTAL SCALE SQ SCH ×4 (06:40→23:12)
[2017-03-04] MEDS: RESP: ALBUTEROL 2.5 MG/3 ML NEB (PRN) NEB (07:48)
[2017-03-04] MEDS ORDERED: LORazepam 2 MG/ML VIAL IV PUSH STA ×2 (07:49→08:00)
[2017-03-04] MEDS: ALBUMIN HUMAN 5% 25 GM/500 ML BOTTLE IV SCH ×3 (08:18→23:07)
--- NOTE | 2017-03-04 08:33 | HHI.NSPN ---
History Chief Complaint: Incisional pain but controlled. Interval History 02/20/17: Pt awake sitting up in chair. Complains of incision back pain but controlled with HYDRAULIC SPECIALIST. Denies radiculopathy into the lower extremities. He states he has stable paresthesias or numbness feet and hands from his neuropathy. 02/24/17: Pt awake and alert, sitting up in chair. Complains of incisional back pain but no radiculopathy in LEs. Paresthesias in feet stable, hx of neuropathy. He ambulates but acknowledges he needs assistance getting oob and out of chair. Agrees he may need short term rehab stay. 02/25/17: Pt sitting up in chair. Complains of some sob when moving. Transfer to rehab was held yesterday secondary to reports pt desaturates when ambulating to 88. He states when sitting in chair no sob. No chest pain. He has Incisional back pain. No radiculopathy in LEs. Stable paresthesias in feet from neuropathy. 02/27/17: Pt awake and alert. Sitting up in chair. No radiculopathy in LEs. Hx of Neuropathy in feet. Pt with some desaturation today with ambulation pr RN. 02/28/17: Pt awake transferred to ICU yesterday. Incisional pain controlled. Pt with sob especially with activity. Abdomen distended, Positive bs. Imaging reports reviewed and noted. 03/03/17: Delayed note entry. Pt fatigued but arousable. States low back pain controlled. No radiculopathy in LEs. Pt scheduled for a paracentesis today. Review of Systems General: Negative for: fever, chills, insomnia Respiratory: Negative for: shortness of breath, cough, sputum Cardiovascular: Negative for: chest pain Gastrointestinal: Negative for: nausea, vomitting, diarrhea, constipation Exam Results Vital Signs Date Time Temp Pulse Resp B/P Pulse Ox O2 Delivery O2 Flow Rate FiO2 03/04/17 07:48 95 Nasal Cannula 5.00 03/04/17 05:57 86 98/56 03/04/17 04:00 95.7 20 Intake and Output 03/03/17 03/03/17 03/04/17 08:00 16:00 00:00 Intake Total 240 ml 0 ml Output Total 100 ml Balance 240 ml -100 ml Physical Examination Resp: CTA bilaterally. Heart: NSR no murmurs Abd: Distended but Soft positive bs Skin: no cyanosis or erythema. Edema in LEs appears improved currently. No signs of DVT. Neuro: Pt awake and alert. follows commands well. speech clear and appropriate. Neuropathy in feet. Muscle: Strength 5/5 in the lower extremities Lab, Micro, Other Results Last Impressions Cyst Biopsy Asp-Paracentesis US 03/03/17 Signed Impressions: Service Date/Time: Friday, March 03, 2017 17:06 - CONCLUSION: Uncomplicated ultrasound guided paracentesis. Adriel Alaniz MD Chest X-Ray 03/03/17 Signed Impressions: Service Date/Time: Friday, March 03, 2017 12:39 - CONCLUSION: Very underinflated examination with likely atelectasis at the lung bases. Otherwise, no acute finding is appreciated. Adriel Kenny MD Abdomen X-Ray 03/01/17 0000 Signed Impressions: Service Date/Time: Wednesday, March 01, 2017 14:41 - CONCLUSION: Nonspecific bowel gas pattern. Justice Muhammad MD FACR Renal Ultrasound 02/28/17 Signed Impressions: Service Date/Time: Tuesday, February 28, 2017 21:46 - CONCLUSION: 1. Small volume ascites. 2. No obstruction. 3. Totally decompressed urinary bladder which is poorly evaluated. Meliton Campbell Jr., MD Lower Extremity Ultrasound 02/28/17 Signed Impressions: Service Date/Time: Tuesday, February 28, 2017 08:47 - CONCLUSION: No DVT in either lower extremity. Johny Woods MD Chest CT 02/27/17 Signed Impressions: Service Date/Time: February 17:10 - CONCLUSION: 1. Elevated right hemidiaphragm with basilar atelectasis and scarring. No effusions. No adenopathy. See abdomen CT for findings of abnormal fluid accumulation below the diaphragms. Hang Tyson MD Abdomen/Pelvis CT 02/27/17 Signed Impressions: Service Date/Time: February 17:13 - CONCLUSION: 1. Ascites and diffuse omental caking/thickening typical of peritoneal carcinomatosis. Primary uncertain but possibly gastric as there appears to be some wall thickening along the greater curvature of the body. Direct visualization with endoscopy recommended. 2. I don't clearly see the appendix. 3. No other evidence of metastatic disease. 4. Umbilical hernia. Adriel Krueger MD Lumbar Spine X-Ray 02/19/17 0000 Signed Impressions: Service Date/Time: Sunday, February 19, 2017 08:46 - CONCLUSION: 1. Postsurgical changes as above. Georges Cardozo MD Laboratory Tests Test 03/03/17 03/03/17 03/04/17 10:07 17:31 01:22 Sodium Level 131 MEQ/L 135 MEQ/L Potassium Level 4.6 MEQ/L 4.5 MEQ/L Chloride Level 98 MEQ/L 101 MEQ/L Carbon Dioxide Level 19.9 MEQ/L 22.5 MEQ/L Anion Gap 13 MEQ/L 12 MEQ/L Blood Urea Nitrogen 79 MG/DL 79 MG/DL Creatinine 2.98 MG/DL 3.29 MG/DL Estimat Glomerular Filtration 20 ML/MIN 18 ML/MIN Rate Random Glucose 117 MG/DL 110 MG/DL Calcium Level 11.4 MG/DL 10.1 MG/DL Peritoneal Fluid WBC 5597 /MM3 Peritoneal Fluid RBC 89649 /MM3 Peritoneal Fluid Neutrophils 77 % Peritoneal Fluid Lymphocytes 5 % Peritoneal Fluid Monocytes 2 % Peritoneal Fluid Eosinophils 12 % Peritoneal Fluid Mesothelial 1 % Cells Peritoneal Fluid Histiocytes 3 % Peritoneal Fluid Albumin 1.5 G/DL Peritoneal Fluid Glucose 76 MG/DL White Blood Count 21.4 TH/MM3 Red Blood Count 3.88 MIL/MM3 Hemoglobin 11.8 GM/DL Hematocrit 36.2 % Mean Corpuscular Volume 93.1 FL Mean Corpuscular Hemoglobin 30.5 PG Mean Corpuscular Hemoglobin 32.7 % Concent Red Cell Distribution Width 15.2 % Platelet Count 251 TH/MM3 Mean Platelet Volume 8.4 FL Lactic Acid Level 1.8 mmol/L 03/03/17 03/03/17 03/04/17 15:00 23:00 07:00 Intake Total 240 ml 0 ml Output Total 100 ml 100 ml Balance 240 ml -100 ml -100 ml Intake Oral 240 ml 0 ml Output Urine Total 100 ml 100 ml # Bowel Movements 0 0 0 Medical Decision Making Impression and Plan A: 81 y/o M s/p L4, L5 and S1 decompressive laminectomy with medial facetectomy and foraminotomy and L5/S1 TLIF with cage and pedicle screw fixation. P: Continue with medical workup and treatment. Pt going for paracentesis today. Continue with PT Johny Moore March 04, 2017 08:33
[2017-03-04] MEDS: DOCUSATE SODIUM 100 MG CAP PO SCH ×2 (09:00→20:23)
[2017-03-04] MEDS: ENOXAPARIN SODIUM 30 MG/0.3 ML SYRINGE SQ SCH (09:00)
[2017-03-04] MEDS: PANTOPRAZOLE SOD 40 MG DELAYED RELEASE TAB PO SCH (09:09)
[2017-03-04] MEDS: ASPIRIN EC 81 MG TABEC PO SCH (09:09)
[2017-03-04] MEDS: TIMOLOL MALEATE 0.5% OPHT SOLN 5 ML BTL EACH EYE SCH ×2 (09:10→20:37)
[2017-03-04] MEDS: FUROSEMIDE 40 MG/4 ML VIAL IV PUSH SCH (09:10)
[2017-03-04] MEDS: POLYETHYLENE GLYCOL 17 GM PKG PO SCH (09:14)
[2017-03-04] MEDS: SODIUM CHLORIDE 0.9% FLUSH 10 ML FLUSH IV FLUSH SCH ×2 (09:19→20:23)
[2017-03-04] MEDS ORDERED: DEXTROSE 50% IN WATER 50 ML VIAL(D50) IV PRN (13:15)
[2017-03-04] MEDS ORDERED: GLUCAGON 1 MG/ML VIAL OTHER PRN (13:15)
--- NOTE | 2017-03-04 13:22 | HHI.CCPN ---
Subjective Remarks/Hospital Course Hospital Course: 81 y/o man s/p lumbar spine surgery for intractable pain. Uneventful perioperative course but has retained significant amount of fluid manifested as ascites and peripheral edema, particularly prominent in the legs. His SOB has improved modestly after diuresis. CXR shows elevated right diaphragm and good lung expansion. No signs of venous congestion. CT abdomen concerning for metastatic disease and ascites. He denies chest pain or abdominal pain. Subjective: 02/28: still persistently oliguric. cr continues to rise. still dysnpeic on exertion, but hypoxia has improved. 03/01: improving after volume resuscitation overnight. Cr plateaued. this morning some mild abdominal pain after EGD. KUB negative for acute disease process. 03/02: Cr stable, at this point, patient appears more clinically euvolemic. likely Cr is ATN related at this point. uop continues to increase overnight to ~ 900cc/24h. GI workup ongoing. 03/03 CCM reconsulted for hypotension. Patient has been hypotensive since yesterday morning. He was given NS 1 liter bolus at midnight and Albumin. Patient was transferred to ICU for hypotension current BP 84/59 with MAP 66mmHg. He underwent US guided paracentesis yesterday with removal 7.2L. Awake, alert lying in bed in NAD. Afebrile. Objective Vital Signs Date Time Temp Pulse Resp B/P Pulse Ox O2 Delivery O2 Flow Rate FiO2 03/04/17 10:00 Nasal Cannula 3.00 03/04/17 10:00 98.2 87 24 88/49 98 Intake and Output 03/03/17 03/03/17 03/04/17 08:00 16:00 00:00 Intake Total 240 ml 0 ml Output Total 100 ml Balance 240 ml -100 ml Result Diagram: 03/04/17 0122 03/04/17 0122 Other Results Laboratory Tests Test 03/03/17 03/04/17 17:31 01:22 Peritoneal Fluid WBC 5597 /MM3 Peritoneal Fluid RBC 09187 /MM3 Peritoneal Fluid Neutrophils 77 % Peritoneal Fluid Lymphocytes 5 % Peritoneal Fluid Monocytes 2 % Peritoneal Fluid Eosinophils 12 % Peritoneal Fluid Mesothelial 1 % Cells Peritoneal Fluid Histiocytes 3 % Peritoneal Fluid Albumin 1.5 G/DL Peritoneal Fluid Glucose 76 MG/DL White Blood Count 21.4 TH/MM3 Red Blood Count 3.88 MIL/MM3 Hemoglobin 11.8 GM/DL Hematocrit 36.2 % Mean Corpuscular Volume 93.1 FL Mean Corpuscular Hemoglobin 30.5 PG Mean Corpuscular Hemoglobin 32.7 % Concent Red Cell Distribution Width 15.2 % Platelet Count 251 TH/MM3 Mean Platelet Volume 8.4 FL Sodium Level 135 MEQ/L Potassium Level 4.5 MEQ/L Chloride Level 101 MEQ/L Carbon Dioxide Level 22.5 MEQ/L Anion Gap 12 MEQ/L Blood Urea Nitrogen 79 MG/DL Creatinine 3.29 MG/DL Estimat Glomerular Filtration 18 ML/MIN Rate Random Glucose 110 MG/DL Lactic Acid Level 1.8 mmol/L Calcium Level 10.1 MG/DL Imaging Last Impressions Cyst Biopsy Asp-Paracentesis US 03/03/17 Signed Impressions: Service Date/Time: Friday, March 03, 2017 17:06 - CONCLUSION: Uncomplicated ultrasound guided paracentesis. Adriel Alaniz MD Chest X-Ray 03/03/17 0000 Signed Impressions: Service Date/Time: Friday, March 03, 2017 12:39 - CONCLUSION: Very underinflated examination with likely atelectasis at the lung bases. Otherwise, no acute finding is appreciated. Adriel Kenny MD Abdomen X-Ray 03/01/17 0000 Signed Impressions: Service Date/Time: Wednesday, March 01, 2017 14:41 - CONCLUSION: Nonspecific bowel gas pattern. Justice Muhammad MD FACR Renal Ultrasound 02/28/17 0000 Signed Impressions: Service Date/Time: Tuesday, February 28, 2017 21:46 - CONCLUSION: 1. Small volume ascites. 2. No obstruction. 3. Totally decompressed urinary bladder which is poorly evaluated. Meliton Campbell Jr., MD Lower Extremity Ultrasound 02/28/17 0000 Signed Impressions: Service Date/Time: Tuesday, February 28, 2017 08:47 - CONCLUSION: No DVT in either lower extremity. Johny Woods MD Chest CT 02/27/17 0000 Signed Impressions: Service Date/Time: February 17:10 - CONCLUSION: 1. Elevated right hemidiaphragm with basilar atelectasis and scarring. No effusions. No adenopathy. See abdomen CT for findings of abnormal fluid accumulation below the diaphragms. Hang Tyson MD Abdomen/Pelvis CT 02/27/17 0000 Signed Impressions: Service Date/Time: February 17:13 - CONCLUSION: 1. Ascites and diffuse omental caking/thickening typical of peritoneal carcinomatosis. Primary uncertain but possibly gastric as there appears to be some wall thickening along the greater curvature of the body. Direct visualization with endoscopy recommended. 2. I don't clearly see the appendix. 3. No other evidence of metastatic disease. 4. Umbilical hernia. Adriel Krueger MD Lumbar Spine X-Ray 02/19/17 0000 Signed Impressions: Service Date/Time: Sunday, February 19, 2017 08:46 - CONCLUSION: 1. Postsurgical changes as above. Georges Cardozo MD Objective Remarks GENERAL: Patient is lying in bed in NAD SKIN: Warm and dry. HEAD: Normocephalic. EYES: No scleral icterus. No injection or drainage. NECK: Supple, trachea midline. No JVD or lymphadenopathy. CARDIOVASCULAR: Regular rate and rhythm without murmurs, gallops, or rubs. RESPIRATORY: Breath sounds equal bilaterally. No accessory muscle use. GASTROINTESTINAL: Abdomen soft, non-tender, nondistended. MUSCULOSKELETAL: No cyanosis, o++edema. 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 Lactic acid: 1.8 : Monitor renal function, I/O's, avoid nephrotoxins On Albumin 25gms IV Q8, Lasix 40mg IV daily Cr: 3.29 today from 2.98. Renal is following- Dr. Greenberg GI: On PO diet. Follow up on Cytology results ID: Place on Zosyn and Monitor for signs of infections ( Fever, WBC) Body fluid cx 03/03: NGTD, check UA with cx if indicated, blood culture x 2 sets Heme: Monitor CBC Endo: SSI with accuchecks GI prophylaxis- on protonix DVT prophylaxis- On Lovenox 30mg daily Discussed with Dr. Ghotra. Level 3 Marily Silva MD March 04, 2017 13:22
--- NOTE | 2017-03-04 14:08 | HHI.PR ---
Subjective Remarks Pt moved to ICU today due to low BPs overnight and continued this morning. Pt had a HALICAT called last night Discussed the pts status with him and his . Pt had paracentesis yesterday with removal of 7200cc of red cloudy fluid, analysis is pending. Pt has been afebrile No specific complaints from the pt today. Objective Vitals Vital Signs Date Time Temp Pulse Resp B/P Pulse Ox O2 Delivery O2 Flow Rate FiO2 03/04/17 12:00 Nasal Cannula 3.00 03/04/17 12:00 91 03/04/17 12:00 98.7 91 22 106/59 98 03/04/17 10:00 Nasal Cannula 3.00 03/04/17 10:00 98.2 87 24 88/49 98 03/04/17 10:00 91 03/04/17 07:48 95 Nasal Cannula 5.00 03/04/17 07:30 96.3 91 21 138/63 96 03/04/17 05:57 86 98/56 95 03/04/17 05:45 84 97/54 96 03/04/17 05:15 86 93/50 96 03/04/17 04:45 84 86/50 94 03/04/17 04:00 95.7 85 20 86/50 97 03/04/17 03:14 85 92/72 95 03/04/17 02:10 86/50 03/04/17 01:55 84 89/55 95 03/04/17 01:35 84 83/48 95 03/04/17 01:00 82/53 03/04/17 00:15 85 16 80/42 94 03/04/17 00:01 96 3.00 03/04/17 00:01 96 Nasal Cannula 3.00 03/04/17 00:00 96.5 84 20 83/51 94 03/03/17 23:55 84 16 89/39 95 03/03/17 23:10 Nasal Cannula 3.00 03/03/17 21:34 96 Nasal Cannula 3.00 03/03/17 20:00 97.2 105 20 95/53 97 03/03/17 15:45 96.9 104 22 89/52 97 03/03/17 03/03/17 03/04/17 15:00 23:00 07:00 Intake Total 240 ml 0 ml Output Total 100 ml 100 ml Balance 240 ml -100 ml -100 ml Intake Oral 240 ml 0 ml Output Urine Total 100 ml 100 ml # Bowel Movements 0 0 0 Result Diagram: 03/04/17 0122 03/04/17 0122 Other Results Laboratory Tests Test 03/03/17 03/03/17 03/04/17 10:07 17:31 01:22 Sodium Level 131 MEQ/L 135 MEQ/L Potassium Level 4.6 MEQ/L 4.5 MEQ/L Chloride Level 98 MEQ/L 101 MEQ/L Carbon Dioxide Level 19.9 MEQ/L 22.5 MEQ/L Anion Gap 13 MEQ/L 12 MEQ/L Blood Urea Nitrogen 79 MG/DL 79 MG/DL Creatinine 2.98 MG/DL 3.29 MG/DL Estimat Glomerular Filtration 20 ML/MIN 18 ML/MIN Rate Random Glucose 117 MG/DL 110 MG/DL Calcium Level 11.4 MG/DL 10.1 MG/DL Peritoneal Fluid WBC 5597 /MM3 Peritoneal Fluid RBC 05147 /MM3 Peritoneal Fluid Neutrophils 77 % Peritoneal Fluid Lymphocytes 5 % Peritoneal Fluid Monocytes 2 % Peritoneal Fluid Eosinophils 12 % Peritoneal Fluid Mesothelial 1 % Cells Peritoneal Fluid Histiocytes 3 % Peritoneal Fluid Albumin 1.5 G/DL Peritoneal Fluid Glucose 76 MG/DL White Blood Count 21.4 TH/MM3 Red Blood Count 3.88 MIL/MM3 Hemoglobin 11.8 GM/DL Hematocrit 36.2 % Mean Corpuscular Volume 93.1 FL Mean Corpuscular Hemoglobin 30.5 PG Mean Corpuscular Hemoglobin 32.7 % Concent Red Cell Distribution Width 15.2 % Platelet Count 251 TH/MM3 Mean Platelet Volume 8.4 FL Lactic Acid Level 1.8 mmol/L Imaging Last Impressions Abdomen X-Ray 03/01/17 0000 Signed Impressions: Service Date/Time: Wednesday, March 01, 2017 14:41 - CONCLUSION: Nonspecific bowel gas pattern. Justice Muhammad MD FACR Renal Ultrasound 02/28/17 0000 Signed Impressions: Service Date/Time: Tuesday, February 28, 2017 21:46 - CONCLUSION: 1. Small volume ascites. 2. No obstruction. 3. Totally decompressed urinary bladder which is poorly evaluated. Meliton Campbell Jr., MD Lower Extremity Ultrasound 02/28/17 0000 Signed Impressions: Service Date/Time: Tuesday, February 28, 2017 08:47 - CONCLUSION: No DVT in either lower extremity. Johny Woods MD Chest CT 02/27/17 0000 Signed Impressions: Service Date/Time: February 17:10 - CONCLUSION: 1. Elevated right hemidiaphragm with basilar atelectasis and scarring. No effusions. No adenopathy. See abdomen CT for findings of abnormal fluid accumulation below the diaphragms. Hang Tyson MD Abdomen/Pelvis CT 02/27/17 0000 Signed Impressions: Service Date/Time: February 17:13 - CONCLUSION: 1. Ascites and diffuse omental caking/thickening typical of peritoneal carcinomatosis. Primary uncertain but possibly gastric as there appears to be some wall thickening along the greater curvature of the body. Direct visualization with endoscopy recommended. 2. I don't clearly see the appendix. 3. No other evidence of metastatic disease. 4. Umbilical hernia. Adriel Krueger MD Chest X-Ray 02/26/17 0800 Signed Impressions: Service Date/Time: Sunday, February 26, 2017 09:16 - CONCLUSION: Normal examination. Lamin Spicer MD Lumbar Spine X-Ray 02/19/17 0000 Signed Impressions: Service Date/Time: Sunday, February 19, 2017 08:46 - CONCLUSION: 1. Postsurgical changes as above. Georges Cardozo MD Objective Remarks General: NAD, AAOx3 Chest: CTA Cardiac: Regular Abd: +BS, distended Ext: Bilateral LE edema A/P Problem List: (1) Ascites Status: Acute Plan: - CT abd/pelvis 02/27/17 --> Ascites and diffuse omental caking/thickening typical of peritoneal carcinomatosis. Primary uncertain but possibly gastric as there appears to be some wall thickening along the greater curvature of the body. - EGD (03/01/17) performed by dr. Castorena - multiple variable size nodules in the duodenal bulb, biopsies taken - Await pathology - Pt had paracentesis on 03/03 with removal of 7200cc of red cloudy ascetic fluid - Cytology is pending. - Pt was started on Albumin 25% Q8H - He is on Lasix 40mg IV BID - Nephrology is following. - Pt has been having issues with BP stability. He has been running hypotensive. - Pt had a HALICAT called on 03/04/17 during the night and has been transferred to the ICU. - Pt was given a dose of Midodrine. - Monitor BP closely - Pt with evidence of possible peritoneal carcinomatosis. Await the pathology and/or cytology results for confirmation. Discussed with the pt and his at bedside that we suspect that this is likely cancer and if that is confirmed that the pt would not likely be a candidate for chemotherapy in his current status. They expressed understanding. (2) NATHAN (acute kidney injury) Status: Acute Plan: - Pts Cr continues to increase possibly d/t ATN - IVF were stopped due to pt getting volume overloaded - IV diuresis per renal. - ?hemodialysis (3) Hypercalcemia Status: Acute Plan: - pt received Miacalcin 03/01 - pt received pamidronate 03/01 - Ca level improving. - Monitor (4) Hyperkalemia Status: Acute Plan: - Improved with Kayexalate given (5) Lumbar stenosis with neurogenic claudication Status: Acute Plan: - Pt s/p L5-S1 transforaminal interbody fusion/ L4, L5 and S1 decompressive laminectomy and fixation on 02/19/[address] Dumont. - Post-op pain control per Neurosurgery - PT daily - IS - Constipation precautions - LSO brace when out of bed - DVT prophylaxis (6) HTN (hypertension), benign Status: Chronic Plan: - See above. (7) Diabetes mellitus type 2, noninsulin dependent Status: Chronic Plan: - NovoLog SSI - Accu checks (8) Hyperlipidemia Status: Chronic Plan: - Cont. home meds (9) KARYNA (obstructive sleep apnea) Status: Chronic Assessment and Plan Patient examined. Assessment and plan formulated with Deysi Andrew PA-C. I agree with the above. malignancy w/up pending. moved to icu for low bp. avoid ivf pt volume overloaded. iv albumen started. s/p 7 liter paracentesis. discussed with dr Fitzpatrick. discussed gaurded prognosis with pt and . She says not interested in putting him though chemo. they are contemplating hospice. Deysi Andrew March 04, 2017 14:08 Emil Ghotra MD March 04, 2017 20:44
--- NOTE | 2017-03-04 16:06 | HHI.GIFU ---
Subjective Remarks Pt resting in bed, in no apparent distress. Says he has "butt pain." Denies abd pain, n/v, diarrhea, blood in stool. (Jenny Ellis) Objective Vitals I&O Vital Signs Date Time Temp Pulse Resp B/P Pulse Ox O2 Delivery O2 Flow Rate FiO2 03/04/17 12:00 Nasal Cannula 3.00 03/04/17 12:00 91 03/04/17 12:00 98.7 91 22 106/59 98 03/04/17 10:00 Nasal Cannula 3.00 03/04/17 10:00 98.2 87 24 88/49 98 03/04/17 10:00 91 03/04/17 07:48 95 Nasal Cannula 5.00 03/04/17 07:30 96.3 91 21 138/63 96 03/04/17 05:57 86 98/56 95 03/04/17 05:45 84 97/54 96 03/04/17 05:15 86 93/50 96 03/04/17 04:45 84 86/50 94 03/04/17 04:00 95.7 85 20 86/50 97 03/04/17 03:14 85 92/72 95 03/04/17 02:10 86/50 03/04/17 01:55 84 89/55 95 03/04/17 01:35 84 83/48 95 03/04/17 01:00 82/53 03/04/17 00:15 85 16 80/42 94 03/04/17 00:01 96 3.00 03/04/17 00:01 96 Nasal Cannula 3.00 03/04/17 00:00 96.5 84 20 83/51 94 03/03/17 23:55 84 16 89/39 95 03/03/17 23:10 Nasal Cannula 3.00 03/03/17 21:34 96 Nasal Cannula 3.00 03/03/17 20:00 97.2 105 20 95/53 97 I/O 03/03/17 03/03/17 03/03/17 03/04/17 03/04/17 03/04/17 07:00 15:00 23:00 07:00 15:00 23:00 Intake Total 240 ml 0 ml Output Total 100 ml 100 ml Balance 240 ml -100 ml -100 ml Intake Oral 240 ml 0 ml Output Urine Total 100 ml 100 ml # Voids 1 # Bowel Movements 4 0 0 0 Laboratory Laboratory Tests Test 03/03/17 03/04/17 17:31 01:22 Peritoneal Fluid WBC 5597 Peritoneal Fluid RBC 6[address] Peritoneal Fluid Neutrophils 77 Peritoneal Fluid Lymphocytes 5 Peritoneal Fluid Monocytes 2 Peritoneal Fluid Eosinophils 12 Peritoneal Fluid Mesothelial 1 Cells Peritoneal Fluid Histiocytes 3 Peritoneal Fluid Albumin 1.5 Peritoneal Fluid Glucose 76 White Blood Count 21.4 Red Blood Count 3.88 Hemoglobin 11.8 Hematocrit 36.2 Mean Corpuscular Volume 93.1 Mean Corpuscular Hemoglobin 30.5 Mean Corpuscular Hemoglobin 32.7 Concent Red Cell Distribution Width 15.2 Platelet Count 251 Mean Platelet Volume 8.4 Sodium Level 135 Potassium Level 4.5 Chloride Level 101 Carbon Dioxide Level 22.5 Anion Gap 12 Blood Urea Nitrogen 79 Creatinine 3.29 Estimat Glomerular Filtration 18 Rate Random Glucose 110 Lactic Acid Level 1.8 Calcium Level 10.1 Date/Time Procedure Status Source Growth 03/03/17 17:31 Gram Stain - Final Resulted Fluid Peritoneal Fluid 03/03/17 17:31 Body Fluid Culture - Preliminary Resulted Fluid Peritoneal Fluid NO GROWTH IN 24 HOURS. Imaging Last Impressions Cyst Biopsy Asp-Paracentesis US 03/03/17 0000 Signed Impressions: Service Date/Time: Friday, March 03, 2017 17:06 - CONCLUSION: Uncomplicated ultrasound guided paracentesis. Adriel Alaniz MD Chest X-Ray 03/03/17 0000 Signed Impressions: Service Date/Time: Friday, March 03, 2017 12:39 - CONCLUSION: Very underinflated examination with likely atelectasis at the lung bases. Otherwise, no acute finding is appreciated. Adriel Kenny MD Abdomen X-Ray 03/01/17 0000 Signed Impressions: Service Date/Time: Wednesday, March 01, 2017 14:41 - CONCLUSION: Nonspecific bowel gas pattern. Justice Muhammad MD FACR Renal Ultrasound 02/28/17 0000 Signed Impressions: Service Date/Time: Tuesday, February 28, 2017 21:46 - CONCLUSION: 1. Small volume ascites. 2. No obstruction. 3. Totally decompressed urinary bladder which is poorly evaluated. Meliton Campbell Jr., MD Lower Extremity Ultrasound 02/28/17 0000 Signed Impressions: Service Date/Time: Tuesday, February 28, 2017 08:47 - CONCLUSION: No DVT in either lower extremity. Johny Woods MD Chest CT 02/27/17 Signed Impressions: Service Date/Time: February 17:10 - CONCLUSION: 1. Elevated right hemidiaphragm with basilar atelectasis and scarring. No effusions. No adenopathy. See abdomen CT for findings of abnormal fluid accumulation below the diaphragms. Hang Tyson MD Abdomen/Pelvis CT 02/27/17 Signed Impressions: Service Date/Time: February 17:13 - CONCLUSION: 1. Ascites and diffuse omental caking/thickening typical of peritoneal carcinomatosis. Primary uncertain but possibly gastric as there appears to be some wall thickening along the greater curvature of the body. Direct visualization with endoscopy recommended. 2. I don't clearly see the appendix. 3. No other evidence of metastatic disease. 4. Umbilical hernia. Adriel Krueger MD Lumbar Spine X-Ray 02/19/17 Signed Impressions: Service Date/Time: Sunday, February 19, 2017 08:46 - CONCLUSION: 1. Postsurgical changes as above. Georges Cardozo MD Physical Exam HEENT: EOMI, normocephalic, atraumatic, no icterus. CHEST: Chest is clear to auscultation and percussion. CARDIAC: Regular rate and rhythm with no murmur gallop or rubs. ABDOMEN: mildly firm, distended, nontender; bowel sounds are present in all four quadrants. 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 S/P EGD 03-03-17---> schatzki ring distal esophagus, mult small and medium polyps gastric body, nodules duodenum. CT 02-27-17 -->ascites, diffuse omental caking/thickening typical of peritoneal carcinomatosis, primary uncertain but poss gastric as there appears to be some wall thickening along the greater curvature of the body, don't clearly see appendix, no evidence metastatic dz, umbilical hernia. - ascites - s/p parecentesis 03/03 CT as above, pt denies hx liver dz - CKD - nephrology following - lumbar spinal stenosis/radiculopathy who was admitted on 02/19/17 for L5-S1 transforaminal interbody fusion/ L4, L5 and S1 decompressive laminectomy and fixation. - Hx of HTN, diabetes mellitus, KARYNA, RLS, and chronic back pain per attending with GI consulted for abnormal findings on CT. Plan: - CELIO - Await biopsies results - Lovenox resumed - LFTs - Consider diagnostic paracentesis/ laparoscopic exploration if biopsies negative - Supportive care This pt seen by myself and Dr Castorena and this note is written on his behalf (Jenny Ellis) Physician Comments Agree with above assessment and plan. Further recommendations to follow. (Mp Castorena MD) Jenny Ellis March 04, 2017 16:06 Mp Castorena MD March 05, 2017 06:55
[2017-03-04] MEDS: PIPERACIL-TAZO 2.25 GM PREMIX 50 ML IV SCH ×2 (16:40→23:09)
[2017-03-04] MEDS: GABAPENTIN 300 MG CAP PO SCH ×2 (16:40→20:24)
--- NOTE | 2017-03-04 16:46 | HHI.NSPN ---
History Chief Complaint: States abdominal discomfort a little better. Interval History 02/20/17: Pt awake sitting up in chair. Complains of incision back pain but controlled with [employer]NAGER. Denies radiculopathy into the lower extremities. He states he has stable paresthesias or numbness feet and hands from his neuropathy. 02/24/17: Pt awake and alert, sitting up in chair. Complains of incisional back pain but no radiculopathy in LEs. Paresthesias in feet stable, hx of neuropathy. He ambulates but acknowledges he needs assistance getting oob and out of chair. Agrees he may need short term rehab stay. 02/25/17: Pt sitting up in chair. Complains of some sob when moving. Transfer to rehab was held yesterday secondary to reports pt desaturates when ambulating to 88. He states when sitting in chair no sob. No chest pain. He has Incisional back pain. No radiculopathy in LEs. Stable paresthesias in feet from neuropathy. 02/27/17: Pt awake and alert. Sitting up in chair. No radiculopathy in LEs. Hx of Neuropathy in feet. Pt with some desaturation today with ambulation pr RN. 02/28/17: Pt awake transferred to ICU yesterday. Incisional pain controlled. Pt with sob especially with activity. Abdomen distended, Positive bs. Imaging reports reviewed and noted. 03/03/17: Delayed note entry. Pt fatigued but arousable. States low back pain controlled. No radiculopathy in LEs. Pt scheduled for a paracentesis today. 03/04/17: Pt awakens to voice. He was transferred to medical ICU for hypotension. He had a paracentesis 03/03 and had 7 liters of fluid removed. He states his abdomen feels a little better. He states his back isn't hurting much. No radiculopathy in LEs. Paresthesias in feet stable from his neuropathy. Review of Systems General: Negative for: fever, chills, insomnia Respiratory: Negative for: shortness of breath, cough, sputum Cardiovascular: Negative for: chest pain Gastrointestinal: Negative for: nausea, vomitting, diarrhea, constipation Exam Results Vital Signs Date Time Temp Pulse Resp B/P Pulse Ox O2 Delivery O2 Flow Rate FiO2 03/04/17 12:00 Nasal Cannula 3.00 03/04/17 12:00 91 03/04/17 12:00 98.7 22 106/59 98 Intake and Output 03/03/17 03/03/17 03/04/17 08:00 16:00 00:00 Intake Total 240 ml 0 ml Output Total 100 ml Balance 240 ml -100 ml Physical Examination Resp: CTA bilaterally. Heart: NSR no murmurs Abd: Distended but Soft positive bs Skin: no cyanosis or erythema. Edema in LEs appears improved currently. No signs of DVT. RN states incision bandaged changed looks good without any signs of infection. Neuro: Pt awake and alert. follows commands well. speech clear and appropriate. Neuropathy in feet. Muscle: Strength 5/5 in the lower extremities. Generalized weakness proximally. Lab, Micro, Other Results Last Impressions Cyst Biopsy Asp-Paracentesis US 03/03/17 0000 Signed Impressions: Service Date/Time: Friday, March 03, 2017 17:06 - CONCLUSION: Uncomplicated ultrasound guided paracentesis. Adriel Alaniz MD Chest X-Ray 03/03/17 0000 Signed Impressions: Service Date/Time: Friday, March 03, 2017 12:39 - CONCLUSION: Very underinflated examination with likely atelectasis at the lung bases. Otherwise, no acute finding is appreciated. Adriel Kenny MD Abdomen X-Ray 03/01/17 0000 Signed Impressions: Service Date/Time: Wednesday, March 01, 2017 14:41 - CONCLUSION: Nonspecific bowel gas pattern. Justice Muhammad MD FACR Renal Ultrasound 02/28/17 0000 Signed Impressions: Service Date/Time: Tuesday, February 28, 2017 21:46 - CONCLUSION: 1. Small volume ascites. 2. No obstruction. 3. Totally decompressed urinary bladder which is poorly evaluated. Meliton Campbell Jr., MD Lower Extremity Ultrasound 02/28/17 0000 Signed Impressions: Service Date/Time: Tuesday, February 28, 2017 08:47 - CONCLUSION: No DVT in either lower extremity. Johny Woods MD Chest CT 02/27/17 0000 Signed Impressions: Service Date/Time: February 17:10 - CONCLUSION: 1. Elevated right hemidiaphragm with basilar atelectasis and scarring. No effusions. No adenopathy. See abdomen CT for findings of abnormal fluid accumulation below the diaphragms. Hang Tyson MD Abdomen/Pelvis CT 02/27/17 0000 Signed Impressions: Service Date/Time: February 17:13 - CONCLUSION: 1. Ascites and diffuse omental caking/thickening typical of peritoneal carcinomatosis. Primary uncertain but possibly gastric as there appears to be some wall thickening along the greater curvature of the body. Direct visualization with endoscopy recommended. 2. I don't clearly see the appendix. 3. No other evidence of metastatic disease. 4. Umbilical hernia. Adriel Krueger MD Lumbar Spine X-Ray 02/19/17 0000 Signed Impressions: Service Date/Time: Sunday, February 19, 2017 08:46 - CONCLUSION: 1. Postsurgical changes as above. Georges Cardozo MD Laboratory Tests Test 03/03/17 03/04/17 17:31 01:22 Peritoneal Fluid WBC 5597 /MM3 Peritoneal Fluid RBC 21475 /MM3 Peritoneal Fluid Neutrophils 77 % Peritoneal Fluid Lymphocytes 5 % Peritoneal Fluid Monocytes 2 % Peritoneal Fluid Eosinophils 12 % Peritoneal Fluid Mesothelial 1 % Cells Peritoneal Fluid Histiocytes 3 % Peritoneal Fluid Albumin 1.5 G/DL Peritoneal Fluid Glucose 76 MG/DL White Blood Count 21.4 TH/MM3 Red Blood Count 3.88 MIL/MM3 Hemoglobin 11.8 GM/DL Hematocrit 36.2 % Mean Corpuscular Volume 93.1 FL Mean Corpuscular Hemoglobin 30.5 PG Mean Corpuscular Hemoglobin 32.7 % Concent Red Cell Distribution Width 15.2 % Platelet Count 251 TH/MM3 Mean Platelet Volume 8.4 FL Sodium Level 135 MEQ/L Potassium Level 4.5 MEQ/L Chloride Level 101 MEQ/L Carbon Dioxide Level 22.5 MEQ/L Anion Gap 12 MEQ/L Blood Urea Nitrogen 79 MG/DL Creatinine 3.29 MG/DL Estimat Glomerular Filtration 18 ML/MIN Rate Random Glucose 110 MG/DL Lactic Acid Level 1.8 mmol/L Calcium Level 10.1 MG/DL 03/03/17 03/03/17 03/04/17 15:00 23:00 07:00 Intake Total 240 ml 0 ml Output Total 100 ml 100 ml Balance 240 ml -100 ml -100 ml Intake Oral 240 ml 0 ml Output Urine Total 100 ml 100 ml # Bowel Movements 0 0 0 Medical Decision Making Impression and Plan A: 81 y/o M s/p L4, L5 and S1 decompressive laminectomy with medial facetectomy and foraminotomy and L5/S1 TLIF with cage and pedicle screw fixation. P: Continue with medical workup and treatment. Continue with PT Johny Moore March 04, 2017 16:46
--- NOTE | 2017-03-04 16:59 | HHI.NPPN ---
Subjective History of Present Illness 81 y/o male, was admitted on 02/19 for lumbar surgery, since he has had chronic pain for years. Other PMH of obesity, DM II, HTN, KARYNA, RLS, and CKD, has been following with me in the office. His baseline Creatinine is close to 1.5. Additional Remarks Patient is alert, mild SOB, feeling weak and tired. Review of Systems General Constitutional: Fatigue Cardiovascular Cardiac: MOSELEY Objective Data Data 03/03/17 03/04/17 19:00 07:00 Intake Total 240 ml 0 ml Output Total 200 ml Balance 240 ml -200 ml Intake Oral 240 ml 0 ml Output Urine Total 200 ml # Bowel Movements 0 0 Vital Signs Date Time Temp Pulse Resp B/P Pulse Ox O2 Delivery O2 Flow Rate FiO2 03/04/17 12:00 Nasal Cannula 3.00 03/04/17 12:00 91 03/04/17 12:00 98.7 91 22 106/59 98 03/04/17 10:00 Nasal Cannula 3.00 03/04/17 10:00 98.2 87 24 88/49 98 03/04/17 10:00 91 03/04/17 07:48 95 Nasal Cannula 5.00 03/04/17 07:30 96.3 91 21 138/63 96 03/04/17 05:57 86 98/56 95 03/04/17 05:45 84 97/54 96 03/04/17 05:15 86 93/50 96 03/04/17 04:45 84 86/50 94 03/04/17 04:00 95.7 85 20 86/50 97 03/04/17 03:14 85 92/72 95 03/04/17 02:10 86/50 03/04/17 01:55 84 89/55 95 03/04/17 01:35 84 83/48 95 03/04/17 01:00 82/53 03/04/17 00:15 85 16 80/42 94 03/04/17 00:01 96 3.00 03/04/17 00:01 96 Nasal Cannula 3.00 03/04/17 00:00 96.5 84 20 83/51 94 03/03/17 23:55 84 16 89/39 95 03/03/17 23:10 Nasal Cannula 3.00 03/03/17 21:34 96 Nasal Cannula 3.00 03/03/17 20:00 97.2 105 20 95/53 97 -: 03/04/17 0122 03/04/17 0122 Microbiology 03/03/17 Gram Stain - Final, Resulted 03/03/17 Body Fluid Culture - Preliminary, Resulted NO GROWTH IN 24 HOURS. 03/04/17 Aerobic Blood Culture, Received Pending 03/04/17 Anaerobic Blood Culture, Received Pending 03/04/17 Aerobic Blood Culture, Received Pending 03/04/17 Anaerobic Blood Culture, Received Pending Physical Exam General Appearance: No Acute Distress, Comfortable Eyes Eye Exam: Pupils Equal Throat Throat Exam: Oral Mucosa [place] & Moist Neck Neck Exam: Neck Supple, Trachea Midline Pulmonary Resp Exam: No Distress, Rhonchi, Decreased Bases, Diminished Breath Sounds Cardiology CV Exam: Regular, Normal Sinus Rhythm Gastrointestinal/Abdomen GI Exam: Soft, Non-Tender, Bowel Sounds Present Extremeties Extremities Exam: Moderate Edema, Pitting Edema, Dependent Edema Neurologic Neuro Exam: Alert, Awake, Oriented Psychiatric Psych Exam: Appropriate Responses Assessment/Plan Problem List: (1) NATHAN (acute kidney injury) Plan: NATHAN from diminished renal perfusion due to hypotension, may have progressed to ATN electrolytes are unremarkable, he is fluid overloaded, see below at this time avoid nephrotoxic substances obtain UA for analysis, obtain urine electrolytes Creatinine is increasing, has more edema. Possibly has ATN, non oliguric, follow urine out put and BMP. Post EGD, and Paracentesis. Awaiting Biopsy reports. BP is on lower side, getting Albumin IV. Creatinine increased, most likely ATN due to Hypotension. (2) Lumbar stenosis with neurogenic claudication Plan: s/p L5-S1 transforaminal interbody fusion/ L4, L5 and S1 decompressive laminectomy and fixation on 02/19/[address] Dumont. cleared for discharge when medical issues are managed per neurosurgery he declined rehab placement, home with home health care/PT/OT pain medications PRN (3) HTN (hypertension), benign Plan: BP borderline low, hold antihypertensives (4) Diabetes mellitus type 2, noninsulin dependent Plan: home metformin has been held continue insulin, follow glucose, goal 140-180 mg/dL (5) Edema Plan: given Lasix 80 mg IV today needs diuresis, begin Bumex 1 mg BID, titrate as tolerated/needed monitor renal response to diuretic therapy follow weights, I/O, limit oral fluid intake, avoid IVF ordered LOVE briceno, to elevate, low Na diet (6) Hypercalcemia Plan: may be due to immobility check PTH, vitamin D levels CT abd/chest/pelvis to rule out malignancy per hospitalist follow calcium levels Leland Greenberg MD March 04, 2017 16:59
[2017-03-04] MEDS: ACETAMINOPHEN/HYDROcodone 325 MG/10 MG TAB PO PRN (20:23)
[2017-03-04] MEDS: ATORVASTATIN 10 MG TAB PO SCH (20:25)
[2017-03-04] MEDS: traZODone HCL 50 MG TAB PO SCH (20:26)
[2017-03-04] MEDS: LATANOPROST 0.005% OPHT SOLN 2.5 ML BTL EACH EYE SCH (20:37)
[2017-03-05] VITALS (33 sets, daily range): BP systolic 77–114; BP diastolic 50–67; PULSE 90–99; RESP 15–46; TEMP 98.2–99.5; O2SAT 92–100
[2017-03-05] MEDS: ALBUMIN HUMAN 5% 25 GM/500 ML BOTTLE IV SCH ×3 (04:51→20:10)
[2017-03-05] MEDS: INSULIN NovoLIN REGULAR SUPPLEMENTAL SCALE SQ SCH ×3 (04:53→18:00)
[2017-03-05 06:47] LABS: AUTOMATED NEUTROPHIL # 17.4 TH/MM3 (1.8-7.7); BASOPHIL % 0.1 % (0.0-2.0); EOSINOPHIL # 1.3 TH/MM3 (0-0.4); EOSINOPHIL % 6.2 % (0.0-4.0); HEMATOCRIT 31.5 % (39.0-51.0); HEMO FLAGS DIFF FINAL; LYMPH % 1.7 % (9.0-44.0); LYMPHOCYTE # 0.3 TH/MM3 (1.0-4.8); MEAN CELL VOLUME 95.3 FL (80.0-100.0); MEAN CORPUSCULAR HEMOGLOBIN 30.5 PG (27.0-34.0); MONO % 5.6 % (0.0-8.0); NEUT % 86.4 % (16.0-70.0); PLATELET COUNT 228 TH/MM3 (150-450); RED CELL DISTRIBUTION WIDTH 15.6 % (11.6-17.2); WHITE BLOOD COUNT 20.1 TH/MM3 (4.0-11.0)
[2017-03-05 07:08] LABS: BICARBONATE 24.1 MEQ/L (21.0-32.0); POTASSIUM 4.2 MEQ/L (3.5-5.1)
[2017-03-05] MEDS: PIPERACIL-TAZO 2.25 GM PREMIX 50 ML IV SCH ×2 (07:51→14:07)
--- NOTE | 2017-03-05 08:45 | HHI.CCPN ---
Subjective Remarks/Hospital Course Hospital Course: 81 y/o man s/p lumbar spine surgery for intractable pain. Uneventful perioperative course but has retained significant amount of fluid manifested as ascites and peripheral edema, particularly prominent in the legs. His SOB has improved modestly after diuresis. CXR shows elevated right diaphragm and good lung expansion. No signs of venous congestion. CT abdomen concerning for metastatic disease and ascites. He denies chest pain or abdominal pain. 02/28: still persistently oliguric. cr continues to rise. still dysnpeic on exertion, but hypoxia has improved. 03/01: improving after volume resuscitation overnight. Cr plateaued. this morning some mild abdominal pain after EGD. KUB negative for acute disease process. 03/02: Cr stable, at this point, patient appears more clinically euvolemic. likely Cr is ATN related at this point. uop continues to increase overnight to ~ 900cc/24h. GI workup ongoing. 03/03 CCM reconsulted for hypotension. Patient has been hypotensive since yesterday morning. He was given NS 1 liter bolus at midnight and Albumin. Patient was transferred to ICU for hypotension current BP 84/59 with MAP 66mmHg. He underwent US guided paracentesis yesterday with removal 7.2L. Awake, alert lying in bed in NAD. Afebrile. Subjective: 03/05: Map continues around 65 mmHg. Arousable. Knows he is in the hospital. Noted worsening creatinine. Objective Vital Signs Date Time Temp Pulse Resp B/P Pulse Ox O2 Delivery O2 Flow Rate FiO2 03/05/17 07:56 98 Nasal Cannula 5.00 03/05/17 06:30 93 03/05/17 04:00 99.4 25 97/56 Intake and Output 03/04/17 03/04/17 03/05/17 08:00 16:00 00:00 Intake Total 1740 ml 330 ml Output Total 100 ml 350 ml 330 ml Balance -100 ml 1390 ml 0 ml Result Diagram: 03/05/17 0445 03/05/17 0445 Other Results Microbiology Date/Time Procedure Status Source Growth 03/04/17 16:49 Aerobic Blood Culture Received Blood Peripheral Pending 03/04/17 16:49 Anaerobic Blood Culture Received Blood Peripheral Pending 03/03/17 17:31 Gram Stain - Final Resulted Fluid Peritoneal Fluid 03/03/17 17:31 Body Fluid Culture - Preliminary Resulted Fluid Peritoneal Fluid NO GROWTH IN 24 HOURS. Imaging Last Impressions Cyst Biopsy Asp-Paracentesis US 03/03/17 Signed Impressions: Service Date/Time: Friday, March 03, 2017 17:06 - CONCLUSION: Uncomplicated ultrasound guided paracentesis. Adriel Alaniz MD Chest X-Ray 03/03/17 Signed Impressions: Service Date/Time: Friday, March 03, 2017 12:39 - CONCLUSION: Very underinflated examination with likely atelectasis at the lung bases. Otherwise, no acute finding is appreciated. Adriel Kenny MD Abdomen X-Ray 03/01/17 Signed Impressions: Service Date/Time: Wednesday, March 01, 2017 14:41 - CONCLUSION: Nonspecific bowel gas pattern. Justice Muhammad MD FACR Renal Ultrasound 02/28/17 Signed Impressions: Service Date/Time: Tuesday, February 28, 2017 21:46 - CONCLUSION: 1. Small volume ascites. 2. No obstruction. 3. Totally decompressed urinary bladder which is poorly evaluated. Meliton Campbell Jr., MD Lower Extremity Ultrasound 02/28/17 Signed Impressions: Service Date/Time: Tuesday, February 28, 2017 08:47 - CONCLUSION: No DVT in either lower extremity. Johny Woods MD Chest CT 02/27/17 Signed Impressions: Service Date/Time: February 17:10 - CONCLUSION: 1. Elevated right hemidiaphragm with basilar atelectasis and scarring. No effusions. No adenopathy. See abdomen CT for findings of abnormal fluid accumulation below the diaphragms. Hang Tyson MD Abdomen/Pelvis CT 02/27/17 Signed Impressions: Service Date/Time: February 17:13 - CONCLUSION: 1. Ascites and diffuse omental caking/thickening typical of peritoneal carcinomatosis. Primary uncertain but possibly gastric as there appears to be some wall thickening along the greater curvature of the body. Direct visualization with endoscopy recommended. 2. I don't clearly see the appendix. 3. No other evidence of metastatic disease. 4. Umbilical hernia. Adriel Krueger MD Lumbar Spine X-Ray 02/19/17 Signed Impressions: Service Date/Time: Sunday, February 19, 2017 08:46 - CONCLUSION: 1. Postsurgical changes as above. Georges Cardozo MD Objective Remarks GENERAL: 81-year-old male, critically ill currently resting in bed in no acute distress SKIN: Warm and dry. No rash or petechiae HEAD: Normocephalic. EYES: Pupils are about 3 mm bilaterally and sluggish. No scleral icterus NECK: Supple, trachea midline. No JVD or lymphadenopathy. CARDIOVASCULAR: RRR. S1, S2. No S4 without murmur RESPIRATORY: Diminished breath sounds throughout due to body habitus. GASTROINTESTINAL: Abdomen distended and firm. Continues to some peritoneal draining from left lower quadrant paracentesis site. Clear/yellow MUSCULOSKELETAL: Significant bilateral lower extremity ++oedema. Neuro: Proximal muscle weakness noted. Strength 4+5 bilateral lower x-rays. Positive peripheral sensory neuropathy A/P Assessment and Plan Neuro/Psych: Status post L5-S1 transforaminal interbody fusion; L4, L5 and S1 decompressive laminectomy with medial facetectomy and foraminotomy; L5-S1 pedicle screw fixation; L5-S1 interbody cage placement; microsurgical technique secondary to Intractable low back pain with radiculopathy and neurogenic claudication; L4-5 facet and ligamentum flavum hypertrophy with associated spinal stenosis; L5-S1 severe degenerative disc disease with the facet hypertrophy and grade 1 spondylolisthesis with associated foraminal stenosis on 02/[address] Dumont Glaucoma Acute encephalopathy likely toxic metabolic Chronic narcotic use Severe sensory peripheral neuropathy On Percocets 10/325 one to 2 tablets as needed for pain. On Percocets at home as needed for pain Continue timolol 0.5% 1 drop each eye twice a day Continue latanoprost 0.005% 1 drop each eye at night At home on Requip 1 mg at noon, 0.5 mg at 1700 hrs. and 1 mg at 2100. Currently on 0.5 twice a day At home on Neurontin 600 mg at noon, 300 mg at 1700, 1900 and 2100. Currently on 600 mg twice a day. Adjust for renal failure Continue trazodone 100 mg daily at bedtime for depression CV: Likely hypovolemic shock secondary to third spacing with significant ascites Dyslipidemia History of hypertension Currently on Lipitor 10 mg at night Holding losartan 25 mg daily light of acute kidney injury Continue aspirin 81 mg by mouth daily Resp: Acute respiratory insufficiency Nasal cannula to maintain saturations greater than equal to 92% currently on 4 L Incentive spirometry while awake Chest x-ray 03/03 revealed no acute cardio pulmonary findings/possibly lower lobe atelectasis GI: Protonix for GI prophylaxis Currently on schedule albumin 25 g IV every 8 hours Colace/MiraLAX for bowel regimen : Suero has been placed for accurate I's and O's in a critically ill patient Endo: Diabetes mellitus Moderate sliding scale insulin with Accu-Cheks every 6 to maintain euglycemia. Renal: Acute kidney injury secondary to renal hypoperfusion initially and now likely evolving into ATN Avoid nephrotoxic drugs creatinine currently elevated at 3.5. Will likely require hemodialysis Currently diuresed with Lasix [address] Greenberg/nephrology following Initially urine eosinophils negative. 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 Likely diagnostic laparoscopy if negative/inconclusive Followed by gastroenterology No active bleeding. No indication for transfusion of blood proximally at this time ID: Currently on Zosyn day #3 5500 WBCs in peritoneal fluid 03/04- blood cultures 2 - no growth 03/03 - peritoneal fluid - Gram stain negative FEN: Hyponatremia Hypercalcemia - likely consistent with hypercalcemia malignancy Low parathyroid hormone. Vitamin D 25 low Pending PTH RP. MSK: PT evaluate and treat GI prophylaxis- on protonix DVT prophylaxis- On Lovenox 30mg daily Level 3 Yuniel Marion MD March 05, 2017 08:45 Yuniel Marion MD March 05, 2017 08:45
[2017-03-05] MEDS: POLYETHYLENE GLYCOL 17 GM PKG PO SCH (09:00)
[2017-03-05] MEDS: TIMOLOL MALEATE 0.5% OPHT SOLN 5 ML BTL EACH EYE SCH ×2 (09:02→20:09)
[2017-03-05] MEDS: DOCUSATE SODIUM 100 MG CAP PO SCH ×2 (09:02→20:10)
[2017-03-05] MEDS: ASPIRIN EC 81 MG TABEC PO SCH (09:02)
[2017-03-05] MEDS: SODIUM CHLORIDE 0.9% FLUSH 10 ML FLUSH IV FLUSH SCH ×2 (09:02→20:07)
[2017-03-05] MEDS: FUROSEMIDE 40 MG/4 ML VIAL IV PUSH SCH (09:02)
[2017-03-05] MEDS: ENOXAPARIN SODIUM 30 MG/0.3 ML SYRINGE SQ SCH (09:03)
[2017-03-05] MEDS: PANTOPRAZOLE SOD 40 MG DELAYED RELEASE TAB PO SCH (09:03)
[2017-03-05] MEDS: GABAPENTIN 300 MG CAP PO SCH ×2 (12:23→20:10)
[2017-03-05 13:09] LABS: UR UREA/CREAT RATIO 9.32 mg/mg (())
[2017-03-05 13:15] LABS: BACTERIA, URINE FEW /hpf; BLOOD, URINE LARGE (NEG); COMMENT (UR) CULTURE INDICATED; CULTURE IF INDICATED CULTURE INDICATED; GLUCOSE,URINE NEG (NEG); GRANULAR CAST, URINE 17 /lpf; KETONE, URINE NEG (NEG); NITRITE,URINE NEG (NEG)
[2017-03-05 13:21] LABS: URINE COLOR DARK-BROWN (YELLW/STRAW)
--- NOTE | 2017-03-05 14:08 | HHI.GIFU ---
Subjective Remarks Pt resting in bed. C/o back pain. Denies abd pain, n/v. Per RN no BM today. ( Jenny Ellis) Objective Vitals I&O Vital Signs Date Time Temp Pulse Resp B/P Pulse Ox O2 Delivery O2 Flow Rate FiO2 03/05/17 12:00 98.3 95 31 86/53 98 03/05/17 12:00 95 03/05/17 12:00 97 Nasal Cannula 4.00 03/05/17 11:00 93 23 89/55 98 03/05/17 10:00 95 46 107/55 92 03/05/17 10:00 95 03/05/17 09:00 91 20 92/50 98 03/05/17 08:01 98.3 99 25 114/63 97 03/05/17 08:00 90 03/05/17 08:00 99 Nasal Cannula 4.00 03/05/17 07:56 98 Nasal Cannula 5.00 03/05/17 07:00 93 21 91/51 100 03/05/17 06:30 93 03/05/17 06:30 93 03/05/17 06:00 92 03/05/17 06:00 92 03/05/17 05:30 92 03/05/17 05:00 93 03/05/17 04:00 100 Nasal Cannula 4.00 03/05/17 04:00 92 03/05/17 04:00 99.4 92 25 97/56 100 03/05/17 03:00 92 03/05/17 03:00 100 03/05/17 03:00 92 30 98/57 100 03/05/17 02:30 93 27 100/53 98 03/05/17 02:30 98 03/05/17 02:30 93 03/05/17 02:00 97 03/05/17 02:00 93 22 95/50 97 03/05/17 02:00 93 03/05/17 01:30 94 03/05/17 01:30 98 03/05/17 01:30 94 20 93/55 98 03/05/17 01:01 96 03/05/17 01:01 96 30 102/54 96 03/05/17 01:01 96 03/05/17 01:00 96 03/05/17 01:00 97 03/05/17 01:00 96 30 97 03/05/17 00:30 95 03/05/17 00:30 95 29 77/50 97 03/05/17 00:30 97 03/05/17 00:00 99.5 95 24 94/52 96 03/05/17 00:00 96 Nasal Cannula 4.00 03/05/17 00:00 95 03/04/17 23:30 93 03/04/17 23:30 93 22 95/50 95 03/04/17 23:30 95 03/04/17 23:04 15 03/04/17 23:03 95 03/04/17 23:03 93 19 93/55 95 03/04/17 23:03 93 03/04/17 23:00 95 25 72/53 96 03/04/17 23:00 95 03/04/17 23:00 96 03/04/17 22:30 95 03/04/17 22:30 95 18 92/50 95 03/04/17 22:30 95 03/04/17 22:00 96 25 94/50 95 03/04/17 22:00 95 03/04/17 22:00 99 03/04/17 22:00 96 03/04/17 21:31 97 03/04/17 21:31 95 03/04/17 21:31 97 22 90/53 95 03/04/17 21:17 97 Nasal Cannula 3.00 03/04/17 21:08 96 03/04/17 21:08 100 27 130/54 96 03/04/17 21:08 100 03/04/17 21:00 101 03/04/17 21:00 98 03/04/17 21:00 101 27 98 03/04/17 20:41 100 31 104/55 97 03/04/17 20:41 97 03/04/17 20:00 99.3 99 35 98 03/04/17 20:00 98 Nasal Cannula 4.00 03/04/17 20:00 99 03/04/17 19:00 96 03/04/17 19:00 101 34 96 03/04/17 18:42 98 03/04/17 18:42 101 36 110/55 98 03/04/17 18:00 100 03/04/17 18:00 98 03/04/17 18:00 100 36 98 03/04/17 17:00 98 03/04/17 17:00 95 26 98 03/04/17 16:00 97 03/04/17 16:00 98.3 97 20 90/56 98 03/04/17 16:00 99 Nasal Cannula 3.00 I/O 03/04/17 03/04/17 03/04/17 03/05/17 03/05/17 03/05/17 07:00 15:00 23:00 07:00 15:00 23:00 Intake Total 1740 ml 330 ml Output Total 100 ml 350 ml 330 ml Balance -100 ml 1390 ml 0 ml Intake Oral 240 ml 240 ml IV Total 1500 ml 90 ml Output Urine Total 100 ml 350 ml 330 ml # Bowel Movements 0 0 Laboratory Laboratory Tests Test 03/05/17 03/05/17 04:45 09:30 White Blood Count 20.1 Red Blood Count 3.30 Hemoglobin 10.1 Hematocrit 31.5 Mean Corpuscular Volume 95.3 Mean Corpuscular Hemoglobin 30.5 Mean Corpuscular Hemoglobin 32.0 Concent Red Cell Distribution Width 15.6 Platelet Count 228 Mean Platelet Volume 8.1 Neutrophils (%) (Auto) 86.4 Lymphocytes (%) (Auto) 1.7 Monocytes (%) (Auto) 5.6 Eosinophils (%) (Auto) 6.2 Basophils (%) (Auto) 0.1 Neutrophils # (Auto) 17.4 Lymphocytes # (Auto) 0.3 Monocytes # (Auto) 1.1 Eosinophils # (Auto) 1.3 Basophils # (Auto) 0.0 CBC Comment DIFF FINAL Differential Comment Sodium Level 136 Potassium Level 4.2 Chloride Level 100 Carbon Dioxide Level 24.1 Anion Gap 12 Blood Urea Nitrogen 81 Creatinine 3.46 Estimat Glomerular Filtration 17 Rate Random Glucose 84 Calcium Level 10.0 Urine Color DARK-BROWN Urine Turbidity CLOUDY Urine pH 5.0 Urine Specific Rickreall 1.017 Urine Protein 30 Urine Glucose (UA) NEG Urine Ketones NEG Urine Occult Blood LARGE Urine Nitrite NEG Urine Bilirubin NEG Urine Urobilinogen 2.0 Urine Leukocyte Esterase LARGE Urine RBC Urine WBC Urine WBC Clumps OCC Urine Bacteria FEW Urine Granular Casts 17 Microscopic Urinalysis Comment CULTURE INDICATED Date/Time Procedure Status Source Growth 03/05/17 09:30 Urine Culture Received Urine Clean Catch Pending 03/04/17 16:49 Aerobic Blood Culture - Preliminary Resulted Blood Peripheral NO GROWTH IN 1 DAY 03/04/17 16:49 Anaerobic Blood Culture - Preliminary Resulted Blood Peripheral NO GROWTH IN 1 DAY 03/03/17 17:31 Gram Stain - Final Resulted Fluid Peritoneal Fluid 03/03/17 17:31 Body Fluid Culture - Preliminary Resulted Fluid Peritoneal Fluid NO GROWTH IN 48 HOURS. Imaging Last Impressions Cyst Biopsy Asp-Paracentesis US 03/03/17 Signed Impressions: Service Date/Time: Friday, March 03, 2017 17:06 - CONCLUSION: Uncomplicated ultrasound guided paracentesis. Adriel Alaniz MD Chest X-Ray 03/03/17 Signed Impressions: Service Date/Time: Friday, March 03, 2017 12:39 - CONCLUSION: Very underinflated examination with likely atelectasis at the lung bases. Otherwise, no acute finding is appreciated. Adriel Kenny MD Abdomen X-Ray 03/01/17 Signed Impressions: Service Date/Time: Wednesday, March 01, 2017 14:41 - CONCLUSION: Nonspecific bowel gas pattern. Justice Muhammad MD FACR Renal Ultrasound 02/28/17 Signed Impressions: Service Date/Time: Tuesday, February 28, 2017 21:46 - CONCLUSION: 1. Small volume ascites. 2. No obstruction. 3. Totally decompressed urinary bladder which is poorly evaluated. Meliton Campbell Jr., MD Lower Extremity Ultrasound 02/28/17 Signed Impressions: Service Date/Time: Tuesday, February 28, 2017 08:47 - CONCLUSION: No DVT in either lower extremity. Johny Woods MD Chest CT 02/27/17 Signed Impressions: Service Date/Time: February 17:10 - CONCLUSION: 1. Elevated right hemidiaphragm with basilar atelectasis and scarring. No effusions. No adenopathy. See abdomen CT for findings of abnormal fluid accumulation below the diaphragms. Hang Tyson MD Abdomen/Pelvis CT 02/27/17 Signed Impressions: Service Date/Time: February 17:13 - CONCLUSION: 1. Ascites and diffuse omental caking/thickening typical of peritoneal carcinomatosis. Primary uncertain but possibly gastric as there appears to be some wall thickening along the greater curvature of the body. Direct visualization with endoscopy recommended. 2. I don't clearly see the appendix. 3. No other evidence of metastatic disease. 4. Umbilical hernia. Adriel Krueger MD Lumbar Spine X-Ray 02/19/17 0000 Signed Impressions: Service Date/Time: Sunday, February 19, 2017 08:46 - CONCLUSION: 1. Postsurgical changes as above. Georges Cardozo MD Physical Exam HEENT: EOMI, normocephalic, atraumatic, no icterus. CHEST: Chest is clear to auscultation and percussion. CARDIAC: Regular rate and rhythm with no murmur gallop or rubs. ABDOMEN: mildly firm, distended, nontender; BS + EXTREMITIES: No clubbing, cyanosis, + BLE 2+ pitting edema [employer] PV [employer]ER: alert. (Jenny Ellis) Assessment and Plan Plan ASSESSMENT - abnormal findings on CT suggesting peritoneal carcinomatosis - uncertain primary but poss gastric. S/P EGD 03-03-17---> schatzki ring distal esophagus, mult small and medium polyps gastric body, nodules duodenum. CT 02-27-17 -->ascites, diffuse omental caking/thickening typical of peritoneal carcinomatosis, primary uncertain but poss gastric as there appears to be some wall thickening along the greater curvature of the body, don't clearly see appendix, no evidence metastatic dz, umbilical hernia. - anemia - 10.1, 31.5 gradually decreasing - ascites - s/p parecentesis 03/03 CT as above, pt denies hx liver dz - CKD - nephrology following - lumbar spinal stenosis/radiculopathy who was admitted on 02/19/17 for L5-S1 transforaminal interbody fusion/ L4, L5 and S1 decompressive laminectomy and fixation. - Hx of HTN, diabetes mellitus, KARYNA, RLS, and chronic back pain per attending with GI consulted for abnormal findings on CT. Plan: - CELIO - Await biopsies results - Lovenox resumed - LFTs - Consider diagnostic paracentesis/ laparoscopic exploration if biopsies negative - Supportive care This pt seen by myself and Dr Castorena and this note is written on his behalf (Jenny Ellis) Physician Comments Seen and examined, pathology pending. Will follow up with you. (Mp Castorena MD) Jenny Ellis March 05, 2017 14:08 Mp Castorena MD March 05, 2017 14:15
[2017-03-05] MEDS: ACETAMINOPHEN/HYDROcodone 325 MG/10 MG TAB PO PRN ×2 (15:07→20:10)
--- NOTE | 2017-03-05 17:13 | HHI.NPPN ---
Subjective History of Present Illness 81 y/o male, was admitted on 02/19 for lumbar surgery, since he has had chronic pain for years. Other PMH of obesity, DM II, HTN, KARYNA, RLS, and CKD, has been following with me in the office. His baseline Creatinine is close to 1.5. Additional Remarks Patient is more letahrgic and sleepy, wakes up on command, not in distress. Review of Systems General Constitutional: Fatigue Cardiovascular Cardiac: MOSELEY Objective Data Data 03/04/17 03/05/17 18:59 06:59 Intake Total 1740 ml 330 ml Output Total 350 ml 330 ml Balance 1390 ml 0 ml Intake Oral 240 ml 240 ml IV Total 1500 ml 90 ml Output Urine Total 350 ml 330 ml # Bowel Movements 0 Vital Signs Date Time Temp Pulse Resp B/P Pulse Ox O2 Delivery O2 Flow Rate FiO2 03/05/17 16:00 93 03/05/17 16:00 97 Nasal Cannula 4.00 03/05/17 16:00 98.8 91 15 82/53 95 03/05/17 15:00 96 23 89/52 98 03/05/17 14:30 95 28 79/50 95 03/05/17 14:00 93 03/05/17 14:00 93 19 89/50 98 03/05/17 13:30 95 20 87/59 96 03/05/17 13:01 98 26 102/67 97 03/05/17 13:00 97 28 97 03/05/17 12:00 98.3 95 31 86/53 98 03/05/17 12:00 95 03/05/17 12:00 97 Nasal Cannula 4.00 03/05/17 11:00 93 23 89/55 98 03/05/17 10:00 95 46 107/55 92 03/05/17 10:00 95 03/05/17 09:00 91 20 92/50 98 03/05/17 08:01 98.3 99 25 114/63 97 03/05/17 08:00 90 03/05/17 08:00 99 Nasal Cannula 4.00 03/05/17 07:56 98 Nasal Cannula 5.00 03/05/17 07:00 93 21 91/51 100 03/05/17 06:30 93 03/05/17 06:30 93 03/05/17 06:00 92 03/05/17 06:00 92 03/05/17 05:30 92 03/05/17 05:00 93 03/05/17 04:00 100 Nasal Cannula 4.00 03/05/17 04:00 92 03/05/17 04:00 99.4 92 25 97/56 100 03/05/17 03:00 92 03/05/17 03:00 100 03/05/17 03:00 92 30 98/57 100 03/05/17 02:30 93 27 100/53 98 03/05/17 02:30 98 03/05/17 02:30 93 03/05/17 02:00 97 03/05/17 02:00 93 22 95/50 97 03/05/17 02:00 93 03/05/17 01:30 94 03/05/17 01:30 98 03/05/17 01:30 94 20 93/55 98 03/05/17 01:01 96 03/05/17 01:01 96 30 102/54 96 03/05/17 01:01 96 03/05/17 01:00 96 03/05/17 01:00 97 03/05/17 01:00 96 30 97 03/05/17 00:30 95 03/05/17 00:30 95 29 77/50 97 03/05/17 00:30 97 03/05/17 00:00 99.5 95 24 94/52 96 03/05/17 00:00 96 Nasal Cannula 4.00 03/05/17 00:00 95 03/04/17 23:30 93 03/04/17 23:30 93 22 95/50 95 03/04/17 23:30 95 03/04/17 23:04 15 03/04/17 23:03 95 03/04/17 23:03 93 19 93/55 95 03/04/17 23:03 93 03/04/17 23:00 95 25 72/53 96 03/04/17 23:00 95 03/04/17 23:00 96 03/04/17 22:30 95 03/04/17 22:30 95 18 92/50 95 03/04/17 22:30 95 03/04/17 22:00 96 25 94/50 95 03/04/17 22:00 95 03/04/17 22:00 99 03/04/17 22:00 96 03/04/17 21:31 97 03/04/17 21:31 95 03/04/17 21:31 97 22 90/53 95 03/04/17 21:17 97 Nasal Cannula 3.00 03/04/17 21:08 96 03/04/17 21:08 100 27 130/54 96 03/04/17 21:08 100 03/04/17 21:00 101 03/04/17 21:00 98 03/04/17 21:00 101 27 98 03/04/17 20:41 100 31 104/55 97 03/04/17 20:41 97 03/04/17 20:00 99.3 99 35 98 03/04/17 20:00 98 Nasal Cannula 4.00 03/04/17 20:00 99 03/04/17 19:00 96 03/04/17 19:00 101 34 96 03/04/17 18:42 98 03/04/17 18:42 101 36 110/55 98 03/04/17 18:00 100 03/04/17 18:00 98 03/04/17 18:00 100 36 98 -: 03/05/17 0445 03/05/17 0445 Microbiology 03/05/17 Urine Culture, Received Pending Physical Exam General Appearance: No Acute Distress, Comfortable Eyes Eye Exam: Pupils Equal Throat Throat Exam: Oral Mucosa [place] & Moist Neck Neck Exam: Neck Supple, Trachea Midline Pulmonary Resp Exam: No Distress, Rhonchi, Decreased Bases, Diminished Breath Sounds Cardiology CV Exam: Regular, Normal Sinus Rhythm Gastrointestinal/Abdomen GI Exam: Soft, Non-Tender, Bowel Sounds Present Extremeties Extremities Exam: Moderate Edema, Pitting Edema, Dependent Edema Neurologic Neuro Exam: Alert, Awake, Oriented Psychiatric Psych Exam: Appropriate Responses Assessment/Plan Problem List: (1) NATHAN (acute kidney injury) Plan: NATHAN from diminished renal perfusion due to hypotension, may have progressed to ATN electrolytes are unremarkable, he is fluid overloaded, see below at this time avoid nephrotoxic substances obtain UA for analysis, obtain urine electrolytes Post EGD, and Paracentesis. Gastric and Duodenal Biopsy reported, result seen. BP is on lower side, getting Albumin IV. Most likely ATN due to Hypotension. Creatinine almost same but urine out put low. Got one dose of Lasix. Will start Bumex infusion. D/W the at bed side. (2) Lumbar stenosis with neurogenic claudication Plan: s/p L5-S1 transforaminal interbody fusion/ L4, L5 and S1 decompressive laminectomy and fixation on 02/19/[address] Dumont. cleared for discharge when medical issues are managed per neurosurgery he declined rehab placement, home with home health care/PT/OT pain medications PRN (3) HTN (hypertension), benign Plan: BP borderline low, hold antihypertensives (4) Diabetes mellitus type 2, noninsulin dependent Plan: home metformin has been held continue insulin, follow glucose, goal 140-180 mg/dL (5) Edema Plan: given Lasix 80 mg IV today needs diuresis, begin Bumex 1 mg BID, titrate as tolerated/needed monitor renal response to diuretic therapy follow weights, I/O, limit oral fluid intake, avoid IVF ordered LOVE hose, to elevate, low Na diet (6) Hypercalcemia Plan: may be due to immobility check PTH, vitamin D levels CT abd/chest/pelvis to rule out malignancy per hospitalist follow calcium levels Leland Greenberg MD March 05, 2017 17:13
[2017-03-05] MEDS: ATORVASTATIN 10 MG TAB PO SCH (20:10)
[2017-03-05] MEDS: traZODone HCL 50 MG TAB PO SCH (20:21)
[2017-03-05] MEDS: LATANOPROST 0.005% OPHT SOLN 2.5 ML BTL EACH EYE SCH (21:00)
[2017-03-06] VITALS (14 sets, daily range): BP systolic 74–92; BP diastolic 50–54; PULSE 90–105; RESP 14–17; TEMP 98.1–98.9; O2SAT 95–98
[2017-03-06] MEDS: ACETAMINOPHEN/HYDROcodone 325 MG/10 MG TAB PO PRN ×3 (00:17→10:01)
[2017-03-06] MEDS: PIPERACIL-TAZO 2.25 GM PREMIX 50 ML IV SCH ×4 (00:18→22:14)
[2017-03-06] MEDS: RESP: ALBUTEROL 2.5 MG/3 ML NEB (PRN) NEB ×2 (00:59→06:00)
[2017-03-06] MEDS: BUMETANIDE INJ 100 ML IV SCH ×2 (04:10→15:59)
[2017-03-06] MEDS: INSULIN NovoLIN REGULAR SUPPLEMENTAL SCALE SQ SCH ×5 (05:02→23:00)
[2017-03-06] MEDS: ALBUMIN HUMAN 5% 25 GM/500 ML BOTTLE IV SCH ×3 (05:03→22:13)
[2017-03-06] MEDS: CYCLOBENZAPRINE HCL 10 MG TAB PO PRN (05:44)
[2017-03-06] MEDS: ASPIRIN EC 81 MG TABEC PO SCH (09:00)
[2017-03-06] MEDS ORDERED: TERBUTALINE INJ 1 MG/ML AMP SQ PRN (09:15)
[2017-03-06] MEDS ORDERED: SODIUM CHLORIDE 0.9% FLUSH 10 ML FLUSH IVF PRN (09:15)
--- NOTE | 2017-03-06 09:15 | PD.PROCEDR ---
Central Line Procedure REASON FOR PROCEDURE Central venous access PROCEDURE PERFORMED Central line placement: Left IJ CVL CONSENT Informed consent for procedure was obtained from . The risks and benefits of the procedure were discussed to include but limited to bleeding, clot formation, infection, and even . ANESTHESIA Local injection of 1% Lidocaine DESCRIPTION OF THE PROCEDURE The patient was placed in supine, mild Trendelenburg position. The area was exposed and cleansed with ChloraPrep, times two. Large sterile drape was used to cover the patient, with the site exposed, under sterile conditions including cap, face mask, sterile gown, and sterile gloves. On single attempt, the introducer needle was inserted with negative pressure in syringe and venous flash was obtained. The guide wire was then advanced without any restriction and the needle was removed. The dilator was used without any complications. Using Seldinger technique the triple-lumen antibiotic coated catheter was advanced over the guide wire to a depth of 20 centimeters. The guide wire was removed. All ports were aspirated with dark venous blood return and flushed easily with sterile saline. All ports were capped. Antibiotic disc was placed around central line at puncture site. The central line was secured to the skin with two interrupted 2.0 silk sutures. The area was bandaged with sterile see- through central line bandage. RADIOLOGICAL DATA Ultrasound guidance was used to locate left internal jugular vein. Doppler/ color flow was used to confirm venous flow. COMPLICATIONS: No apparent complications ESTIMATED BLOOD LOSS: Less than 1 cc. Yuniel Marion MD Mar 06, 2017 09:14
--- NOTE | 2017-03-06 09:42 | HHI.CCPN ---
Subjective Remarks/Hospital Course Hospital Course: 81 y/o man s/p lumbar spine surgery for intractable pain. Uneventful perioperative course but has retained significant amount of fluid manifested as ascites and peripheral edema, particularly prominent in the legs. His SOB has improved modestly after diuresis. CXR shows elevated right diaphragm and good lung expansion. No signs of venous congestion. CT abdomen concerning for metastatic disease and ascites. He denies chest pain or abdominal pain. 02/28: still persistently oliguric. cr continues to rise. still dysnpeic on exertion, but hypoxia has improved. 03/01: improving after volume resuscitation overnight. Cr plateaued. this morning some mild abdominal pain after EGD. KUB negative for acute disease process. 03/02: Cr stable, at this point, patient appears more clinically euvolemic. likely Cr is ATN related at this point. uop continues to increase overnight to ~ 900cc/24h. GI workup ongoing. 03/03 CCM reconsulted for hypotension. Patient has been hypotensive since yesterday morning. He was given NS 1 liter bolus at midnight and Albumin. Patient was transferred to ICU for hypotension current BP 84/59 with MAP 66mmHg. He underwent US guided paracentesis yesterday with removal 7.2L. Awake, alert lying in bed in NAD. Afebrile. 03/05: MAP continues around 65 mmHg. Arousable. Knows he is in the hospital. Noted worsening creatinine. Subjective: 03/06: CVL placed today due to persistent hypotension. Arousable and follows commands. Afebrile. A.m. labs still pending. Did not respond to Bumex drip. Objective Vital Signs Date Time Temp Pulse Resp B/P Pulse Ox O2 Delivery O2 Flow Rate FiO2 03/06/17 08:30 95 Nasal Cannula 3.00 03/06/17 06:00 105 03/06/17 04:00 98.2 14 86/53 Intake and Output 03/05/17 03/05/17 03/05/17 07:59 15:59 23:59 Intake Total 661 ml 650 ml Output Total 175 ml 150 ml Balance 486 ml 500 ml Result Diagram: 03/05/17 0445 03/05/17 0445 Other Results Microbiology Date/Time Procedure Status Source Growth 03/05/17 09:30 Urine Culture Received Urine Clean Catch Pending 03/04/17 16:49 Aerobic Blood Culture - Preliminary Resulted Blood Peripheral NO GROWTH IN 1 DAY 03/04/17 16:49 Anaerobic Blood Culture - Preliminary Resulted Blood Peripheral NO GROWTH IN 1 DAY 03/03/17 17:31 Gram Stain - Final Complete Fluid Peritoneal Fluid 03/03/17 17:31 Body Fluid Culture - Final Complete Fluid Peritoneal Fluid NO GROWTH IN 72 HRS.--AEROBICALLY OR ... Imaging Last Impressions Cyst Biopsy Asp-Paracentesis US 03/03/17 Signed Impressions: Service Date/Time: Friday, March 03, 2017 17:06 - CONCLUSION: Uncomplicated ultrasound guided paracentesis. Adriel Alaniz MD Chest X-Ray 03/03/17 Signed Impressions: Service Date/Time: Friday, March 03, 2017 12:39 - CONCLUSION: Very underinflated examination with likely atelectasis at the lung bases. Otherwise, no acute finding is appreciated. Adriel Kenny MD Abdomen X-Ray 03/01/17 Signed Impressions: Service Date/Time: Wednesday, March 01, 2017 14:41 - CONCLUSION: Nonspecific bowel gas pattern. Justice Muhammad MD FACR Renal Ultrasound 02/28/17 Signed Impressions: Service Date/Time: Tuesday, February 28, 2017 21:46 - CONCLUSION: 1. Small volume ascites. 2. No obstruction. 3. Totally decompressed urinary bladder which is poorly evaluated. Meliton Campbell Jr., MD Lower Extremity Ultrasound 02/28/17 Signed Impressions: Service Date/Time: Tuesday, February 28, 2017 08:47 - CONCLUSION: No DVT in either lower extremity. Johny Woods MD Chest CT 02/27/17 Signed Impressions: Service Date/Time: February 17:10 - CONCLUSION: 1. Elevated right hemidiaphragm with basilar atelectasis and scarring. No effusions. No adenopathy. See abdomen CT for findings of abnormal fluid accumulation below the diaphragms. Hang Tyson MD Abdomen/Pelvis CT 02/27/17 0000 Signed Impressions: Service Date/Time: February 17:13 - CONCLUSION: 1. Ascites and diffuse omental caking/thickening typical of peritoneal carcinomatosis. Primary uncertain but possibly gastric as there appears to be some wall thickening along the greater curvature of the body. Direct visualization with endoscopy recommended. 2. I don't clearly see the appendix. 3. No other evidence of metastatic disease. 4. Umbilical hernia. Adriel Krueger MD Lumbar Spine X-Ray 02/19/17 0000 Signed Impressions: Service Date/Time: Sunday, February 19, 2017 08:46 - CONCLUSION: 1. Postsurgical changes as above. Georges Cardozo MD Objective Remarks GENERAL: 81-year-old male, critically ill currently resting in bed in no acute distress SKIN: Warm and dry. No rash or petechiae HEAD: Normocephalic. EYES: Pupils are about 3 mm bilaterally and sluggish. No scleral icterus NECK: Supple, trachea midline. No JVD or lymphadenopathy. Left IJ is clean dry and intact CARDIOVASCULAR: Tachycardic, RR.. S1, S2. No S4 without murmur RESPIRATORY: Diminished breath sounds throughout due to body habitus. GASTROINTESTINAL: Abdomen distended and firm. Continues to some peritoneal draining from left lower quadrant paracentesis site. Clear/yellow MUSCULOSKELETAL: Significant bilateral lower extremity ++oedema. Neuro: Proximal muscle weakness noted. Strength 4+5 bilateral lower extremities. Positive peripheral sensory neuropathy Urinary Catheter: Yes Assessment to: Continue Suero insert reason: ICU Pt Getting Diuretics Vascular Central Line Catheter: Yes Assessment to: Continue Date of Insertion: Mar 06, 2017 Line: Central Venous Catheter Side: Left Location: Internal, Jugular A/P Assessment and Plan Neuro/Psych: Status post L5-S1 transforaminal interbody fusion; L4, L5 and S1 decompressive laminectomy with medial facetectomy and foraminotomy; L5-S1 pedicle screw fixation; L5-S1 interbody cage placement; microsurgical technique secondary to Intractable low back pain with radiculopathy and neurogenic claudication; L4-5 facet and ligamentum flavum hypertrophy with associated spinal stenosis; L5-S1 severe degenerative disc disease with the facet hypertrophy and grade 1 spondylolisthesis with associated foraminal stenosis on 02/[address] Dumont Glaucoma Acute encephalopathy likely toxic metabolic Chronic narcotic use Severe sensory peripheral neuropathy On Percocets 10/325 one to 2 tablets as needed for pain. On Percocets at home as needed for pain Continue timolol 0.5% 1 drop each eye twice a day Continue latanoprost 0.005% 1 drop each eye at night At home on Requip 1 mg at noon, 0.5 mg at 1700 hrs. and 1 mg at 2100. Currently on 0.5 twice a day At home on Neurontin 600 mg at noon, 300 mg at 1700, 1900 and 2100. Currently on 300 mg twice a day. Gabapentin level ordered 03/06 Continue trazodone 100 mg daily at bedtime for depression CV: Likely hypovolemic shock secondary to third spacing with significant ascites Dyslipidemia History of hypertension Currently on Lipitor 10 mg at night Holding losartan 25 mg daily light of acute kidney injury Continue aspirin 81 mg by mouth daily Resp: Acute respiratory insufficiency Nasal cannula to maintain saturations greater than equal to 92% currently on 4 L Incentive spirometry while awake Chest x-ray 03/03 revealed no acute cardio pulmonary findings/possibly lower lobe atelectasis GI: Protonix for GI prophylaxis Currently on schedule albumin 25 g IV every 8 hours per renal Colace/MiraLAX for bowel regimen : Suero has been placed for accurate I's and O's in a critically ill patient Endo: Diabetes mellitus Moderate sliding scale insulin with Accu-Cheks every 6 to maintain euglycemia. Renal: Acute kidney injury secondary to renal hypoperfusion initially and now likely evolving into ATN Avoid nephrotoxic drugs creatinine currently elevated at 3.5. Will likely require hemodialysis. brought in living will and currently considering other options Currently diuresed with Bumex drip Dr. Greenberg/nephrology following Initially urine eosinophils negative. 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 Likely diagnostic laparoscopy if negative/inconclusive Followed by gastroenterology No active bleeding. No indication for transfusion of blood.X at this time ID: Currently on Zosyn day #5 5500 WBCs in peritoneal fluid 03/04- blood cultures 2 - no growth 03/03 - peritoneal fluid - Gram stain negative FEN: Hyponatremia Hypercalcemia - likely consistent with hypercalcemia malignancy Low parathyroid hormone. Vitamin D 25 low. Elevated PTH RP at 10. MSK: PT evaluate and treat GI prophylaxis- on protonix DVT prophylaxis- On Lovenox 30mg daily Level 2 Yuniel Marion MD Mar 06, 2017 09:42 Yuniel Marion MD Mar 06, 2017 09:42
[2017-03-06 09:43] LABS: AUTOMATED NEUTROPHIL # 17.9 TH/MM3 (1.8-7.7); BASOPHIL # 0.1 TH/MM3 (0-0.2); BASOPHIL % 0.3 % (0.0-2.0); EOSINOPHIL # 1.1 TH/MM3 (0-0.4); EOSINOPHIL % 5.4 % (0.0-4.0); HEMATOCRIT 28.7 % (39.0-51.0); HEMO FLAGS DIFF FINAL; LYMPH % 1.8 % (9.0-44.0); LYMPHOCYTE # 0.4 TH/MM3 (1.0-4.8); MEAN CELL VOLUME 95.3 FL (80.0-100.0); MEAN CORPUSCULAR HEMOGLOBIN 30.6 PG (27.0-34.0); MEAN CORPUSCULAR HGB CONC 32.1 % (32.0-36.0); MONO % 5.2 % (0.0-8.0); NEUT % 87.3 % (16.0-70.0); PLATELET COUNT 192 TH/MM3 (150-450); RED BLOOD COUNT 3.02 MIL/MM3 (4.50-5.90); RED CELL DISTRIBUTION WIDTH 15.5 % (11.6-17.2); WHITE BLOOD COUNT 20.5 TH/MM3 (4.0-11.0)
--- NOTE | 2017-03-06 09:56 | RADRPT ---
EXAM DATE/TIME: 03/06/2017 09:14 [facility] COMPARISON: CHEST SINGLE AP, March 03, 2017, 12:39. INDICATIONS : Central line placement. MEDICAL HISTORY : Hypertension. Diabetes mellitus type II. Osteoarthritis. SURGICAL HISTORY : Fusion, lumbar. ENCOUNTER: Subsequent ACUITY: 1 week PAIN SCORE: 0/10 LOCATION: Bilateral chest FINDINGS: Interval placement of a left internal jugular central line with tip somewhat obscured but likely in t he junction of the SVC and the left brachiocephalic vein. Lungs remain significantly hypoaerated with bibasilar airspace disease likely reflecting atelectasis. There is blunting of the left costophrenic angle which may reflect trace pleural effusion. Remainder of exam is unchanged. CONCLUSION: 1. Left internal central line tip somewhat obscured but likely in the junction of the SVC and a left brachiocephalic vein. 2. No pneumothorax. 3. Persistent low lung volumes with bibasilar atelectasis and probable trace left pleural effusion. Andres Ortiz MD on March 06, 2017 at 9:50 Board Certified Radiologist. This report was verified electronically.
[2017-03-06] MEDS: ENOXAPARIN SODIUM 30 MG/0.3 ML SYRINGE SQ SCH (09:59)
[2017-03-06] MEDS: PHENYLEPHRINE INJ 160 MG in DEXTROSE 5% IN WATE 500 ML INJ 484 ML IV SCH ×2 (09:59)
[2017-03-06] MEDS: DOCUSATE SODIUM 100 MG CAP PO SCH ×2 (10:00→20:06)
[2017-03-06] MEDS: POLYETHYLENE GLYCOL 17 GM PKG PO SCH ×2 (10:00→10:57)
[2017-03-06 10:15] LABS: ALT (GPT) 16 U/L (12-78); ANION GAP 14 MEQ/L (5-15); BICARBONATE 19.6 MEQ/L (21.0-32.0); BLOOD UREA NITROGEN 99 MG/DL (7-18); CHLORIDE 100 MEQ/L (98-107); GLOMERULAR FILTRATION RATE 12 ML/MIN (>89); MAGNESIUM 2.6 MG/DL (1.5-2.5); POTASSIUM 4.5 MEQ/L (3.5-5.1); SODIUM (NA) 134 MEQ/L (136-145)
[2017-03-06 10:19] LABS: ALKALINE PHOSPHATASE 40 U/L (45-117); AST (GOT) 14 U/L (15-37); CREATINE KINASE 131 U/L (39-308)
[2017-03-06 10:30] LABS: APTT (PATIENT) 39.7 SEC (24.3-30.1); INTERNATIONAL NORMALIZED RATIO 1.2 RATIO; PROTHROMBIN TIME - PATIENT 13.4 SEC (9.8-11.6)
[2017-03-06] MEDS: ASPIRIN 81 MG CHEW TAB PO SCH ×2 (11:00→14:04)
[2017-03-06] MEDS: GABAPENTIN 300 MG CAP PO SCH ×3 (12:00→20:07)
--- NOTE | 2017-03-06 12:08 | HHI.NPPN ---
Subjective History of Present Illness 81 y/o male, was admitted on 02/19 for lumbar surgery, since he has had chronic pain for years. Other PMH of obesity, DM II, HTN, KARYNA, RLS, and CKD, has been following with me in the office. His baseline Creatinine is close to 1.5. Additional Remarks Patient is more lethargic and sleepy, with nasal cannula. Review of Systems General Constitutional: Fatigue Cardiovascular Cardiac: MOSE[place] Objective Data Data 03/05/17 03/06/17 19:00 07:00 Intake Total 661 ml 1469 ml Output Total 175 ml 450 ml Balance 486 ml 1019 ml Intake Oral 111 ml 400 ml IV Total 50 ml 69 ml Albumin 500 ml 1000 ml Output Urine Total 175 ml 450 ml Vital Signs Date Time Temp Pulse Resp B/P Pulse Ox O2 Delivery O2 Flow Rate FiO2 03/06/17 08:30 95 Nasal Cannula 3.00 03/06/17 06:00 105 03/06/17 04:00 98.2 100 14 86/53 98 03/06/17 04:00 100 03/06/17 04:00 99 Nasal Cannula 3.00 03/06/17 02:00 101 03/06/17 00:00 98 Nasal Cannula 3.00 03/06/17 00:00 95 03/06/17 00:00 98.6 95 14 85/54 98 03/05/17 22:00 93 03/05/17 20:18 96 Nasal Cannula 4.00 03/05/17 20:00 94 Nasal Cannula 3.00 03/05/17 20:00 98.2 97 15 78/59 94 03/05/17 20:00 97 03/05/17 18:00 91 03/05/17 18:00 91 27 84/52 94 03/05/17 17:00 91 20 83/52 94 03/05/17 16:00 93 03/05/17 16:00 97 Nasal Cannula 4.00 03/05/17 16:00 98.8 91 15 82/53 95 03/05/17 15:00 96 23 89/52 98 03/05/17 14:30 95 28 79/50 95 03/05/17 14:00 93 03/05/17 14:00 93 19 89/50 98 03/05/17 13:30 95 20 87/59 96 03/05/17 13:01 98 26 102/67 97 03/05/17 13:00 97 28 97 -: 03/06/17 0915 03/06/17 0915 Physical Exam General Appearance: No Acute Distress, Comfortable Eyes Eye Exam: Pupils Equal Throat Throat Exam: Oral Mucosa [place] & Moist Neck Neck Exam: Neck Supple, Trachea Midline Pulmonary Resp Exam: No Distress, Rhonchi, Decreased Bases, Diminished Breath Sounds Cardiology CV Exam: Regular, Normal Sinus Rhythm Gastrointestinal/Abdomen GI Exam: Soft, Non-Tender, Bowel Sounds Present Extremeties Extremities Exam: Moderate Edema, Pitting Edema, Dependent Edema Neurologic Neuro Exam: Alert, Awake, Oriented Psychiatric Psych Exam: Appropriate Responses Assessment/Plan Problem List: (1) NATHAN (acute kidney injury) Plan: NATHAN from diminished renal perfusion due to hypotension, may have progressed to ATN electrolytes are unremarkable, he is fluid overloaded, see below at this time avoid nephrotoxic substances obtain UA for analysis, obtain urine electrolytes Post EGD, and Paracentesis. Gastric and Duodenal Biopsy reported, result seen. BP is on lower side, getting Albumin IV. Most likely ATN due to Hypotension. started Bumex infusion but not much response. Urine out put is low. Creatinine increasing. Cytology still PND. Family made him DNR and does not want Dialysis. (2) Lumbar stenosis with neurogenic claudication Plan: s/p L5-S1 transforaminal interbody fusion/ L4, L5 and S1 decompressive laminectomy and fixation on 02/19/[address] Dumont. cleared for discharge when medical issues are managed per neurosurgery he declined rehab placement, home with home health care/PT/OT pain medications PRN (3) HTN (hypertension), benign Plan: BP borderline low, hold antihypertensives (4) Diabetes mellitus type 2, noninsulin dependent Plan: home metformin has been held continue insulin, follow glucose, goal 140-180 mg/dL (5) Edema Plan: given Lasix 80 mg IV today needs diuresis, begin Bumex 1 mg BID, titrate as tolerated/needed monitor renal response to diuretic therapy follow weights, I/O, limit oral fluid intake, avoid IVF ordered LOVE hose, to elevate, low Na diet (6) Hypercalcemia Plan: may be due to immobility check PTH, vitamin D levels CT abd/chest/pelvis to rule out malignancy per hospitalist follow calcium levels Leland Greenberg MD Mar 06, 2017 12:08
--- NOTE | 2017-03-06 13:35 | HHI.GIFU ---
Subjective Remarks Pt lethargic. Per RN no BM in at least 3 d. She cannot rouse him sufficiently to take miralax. No n/v. (Jenny Ellis) Objective Vitals I&O Vital Signs Date Time Temp Pulse Resp B/P Pulse Ox O2 Delivery O2 Flow Rate FiO2 03/06/17 12:00 96 Nasal Cannula 4.00 03/06/17 12:00 100 03/06/17 12:00 98.6 100 16 86/50 96 03/06/17 10:00 103 03/06/17 08:30 95 Nasal Cannula 3.00 03/06/17 08:00 95 Nasal Cannula 4.00 03/06/17 08:00 104 03/06/17 08:00 98.6 104 17 74/50 95 03/06/17 06:00 105 03/06/17 04:00 98.2 100 14 86/53 98 03/06/17 04:00 100 03/06/17 04:00 99 Nasal Cannula 3.00 03/06/17 02:00 101 03/06/17 00:00 98 Nasal Cannula 3.00 03/06/17 00:00 95 03/06/17 00:00 98.6 95 14 85/54 98 03/05/17 22:00 93 03/05/17 20:18 96 Nasal Cannula 4.00 03/05/17 20:00 94 Nasal Cannula 3.00 03/05/17 20:00 98.2 97 15 78/59 94 03/05/17 20:00 97 03/05/17 18:00 91 03/05/17 18:00 91 27 84/52 94 03/05/17 17:00 91 20 83/52 94 03/05/17 16:00 93 03/05/17 16:00 97 Nasal Cannula 4.00 03/05/17 16:00 98.8 91 15 82/53 95 03/05/17 15:00 96 23 89/52 98 03/05/17 14:30 95 28 79/50 95 03/05/17 14:00 93 03/05/17 14:00 93 19 89/50 98 I/O 03/05/17 03/05/17 03/05/17 03/06/17 03/06/17 03/06/17 07:00 15:00 23:00 07:00 15:00 23:00 Intake Total 661 ml 650 ml 819 ml Output Total 175 ml 150 ml 300 ml Balance 486 ml 500 ml 519 ml Intake Oral 111 ml 150 ml 250 ml IV Total 50 ml 69 ml Albumin 500 ml 500 ml 500 ml Output Urine Total 175 ml 150 ml 300 ml Laboratory Laboratory Tests Test 03/06/17 03/06/17 09:15 09:30 White Blood Count 20.5 Red Blood Count 3.02 Hemoglobin 9.2 Hematocrit 28.7 Mean Corpuscular Volume 95.3 Mean Corpuscular Hemoglobin 30.6 Mean Corpuscular Hemoglobin 32.1 Concent Red Cell Distribution Width 15.5 Platelet Count 192 Mean Platelet Volume 7.8 Neutrophils (%) (Auto) 87.3 Lymphocytes (%) (Auto) 1.8 Monocytes (%) (Auto) 5.2 Eosinophils (%) (Auto) 5.4 Basophils (%) (Auto) 0.3 Neutrophils # (Auto) 17.9 Lymphocytes # (Auto) 0.4 Monocytes # (Auto) 1.1 Eosinophils # (Auto) 1.1 Basophils # (Auto) 0.1 CBC Comment DIFF FINAL Differential Comment Sodium Level 134 Potassium Level 4.5 Chloride Level 100 Carbon Dioxide Level 19.6 Anion Gap 14 Blood Urea Nitrogen 99 Creatinine 4.59 Estimat Glomerular Filtration 12 Rate Random Glucose 85 Calcium Level 9.1 Phosphorus Level 5.9 Magnesium Level 2.6 Total Bilirubin 1.0 Aspartate Amino Transf 14 (AST/SGOT) Alanine Aminotransferase 16 (ALT/SGPT) Alkaline Phosphatase 40 Total Creatine Kinase 131 Total Protein 5.2 Albumin 2.6 Prothrombin Time 13.4 Prothromb Time International 1.2 Ratio Activated Partial 39.7 Thromboplast Time Fibrinogen 569 Date/Time Procedure Status Source Growth 03/05/17 09:30 Urine Culture Received Urine Clean Catch Pending 03/04/17 16:49 Aerobic Blood Culture - Preliminary Resulted Blood Peripheral NO GROWTH IN 2 DAYS 03/04/17 16:49 Anaerobic Blood Culture - Preliminary Resulted Blood Peripheral NO GROWTH IN 2 DAYS 03/03/17 17:31 Gram Stain - Final Complete Fluid Peritoneal Fluid 03/03/17 17:31 Body Fluid Culture - Final Complete Fluid Peritoneal Fluid NO GROWTH IN 72 HRS.--AEROBICALLY OR ... Imaging Last Impressions Chest X-Ray 03/06/17912 Signed Impressions: Service Date/Time: March 09:14 - CONCLUSION: 1. Left internal central line tip somewhat obscured but likely in the junction of the SVC and a left brachiocephalic vein. 2. No pneumothorax. 3. Persistent low lung volumes with bibasilar atelectasis and probable trace left pleural effusion. Andres Ortiz MD Cyst Biopsy Asp-Paracentesis US 03/03/17 Signed Impressions: Service Date/Time: Friday, March 03, 2017 17:06 - CONCLUSION: Uncomplicated ultrasound guided paracentesis. Adriel Alaniz MD Abdomen X-Ray 03/01/17 Signed Impressions: Service Date/Time: Wednesday, March 01, 2017 14:41 - CONCLUSION: Nonspecific bowel gas pattern. Justice Muhammad MD FACR Renal Ultrasound 02/28/17 Signed Impressions: Service Date/Time: Tuesday, February 28, 2017 21:46 - CONCLUSION: 1. Small volume ascites. 2. No obstruction. 3. Totally decompressed urinary bladder which is poorly evaluated. Meliton Campbell Jr., MD Lower Extremity Ultrasound 02/28/17 Signed Impressions: Service Date/Time: Tuesday, February 28, 2017 08:47 - CONCLUSION: No DVT in either lower extremity. Johny Woods MD Chest CT 02/27/17 Signed Impressions: Service Date/Time: February 17:10 - CONCLUSION: 1. Elevated right hemidiaphragm with basilar atelectasis and scarring. No effusions. No adenopathy. See abdomen CT for findings of abnormal fluid accumulation below the diaphragms. Hang Tyson MD Abdomen/Pelvis CT 02/27/17 0000 Signed Impressions: Service Date/Time: February 17:13 - CONCLUSION: 1. Ascites and diffuse omental caking/thickening typical of peritoneal carcinomatosis. Primary uncertain but possibly gastric as there appears to be some wall thickening along the greater curvature of the body. Direct visualization with endoscopy recommended. 2. I don't clearly see the appendix. 3. No other evidence of metastatic disease. 4. Umbilical hernia. Adriel Krueger MD Lumbar Spine X-Ray 02/19/17 0000 Signed Impressions: Service Date/Time: Wednesday, February 19, 2017 08:46 - CONCLUSION: 1. Postsurgical changes as above. Georges Cardozo MD Physical Exam HEENT:normocephalic, atraumatic, no icterus. CHEST: Chest is clear to auscultation and percussion. CARDIAC: Regular rate and rhythm with no murmur gallop or rubs. 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 (Jenny Ellis) Assessment and Plan Plan ASSESSMENT - abnormal findings on CT suggesting peritoneal carcinomatosis - uncertain primary but poss gastric. S/P EGD 03-03-17---> schatzki ring distal esophagus, mult small and medium polyps gastric body, nodules duodenum. Path benign. CT 02-27-17 -->ascites, diffuse omental caking/thickening typical of peritoneal carcinomatosis, primary uncertain but poss gastric as there appears to be some wall thickening along the greater curvature of the body, don't clearly see appendix, no evidence metastatic dz, umbilical hernia. - abdominal distention - No BM in 3 d and pt not alert enough to take bowel regimen. Will try enemas. - anemia - 10.1, 31.5 gradually decreasing - ascites - s/p parecentesis 03/03 CT as above, pt denies hx liver dz - CKD - nephrology following - lumbar spinal stenosis/radiculopathy who was admitted on 02/19/17 for L5-S1 transforaminal interbody fusion/ L4, L5 and S1 decompressive laminectomy and fixation. - Hx of HTN, diabetes mellitus, KARYNA, RLS, and chronic back pain per attending with GI consulted for abnormal findings on CT. Plan: - CELIO - SSE x 2 - Lovenox resumed - LFTs - Consider diagnostic paracentesis/ laparoscopic exploration if biopsies negative - Supportive care This pt seen by myself and Dr Castorena and this note is written on his behalf (Jenny Ellis) Physician Comments Agree with above, further recommendations to follow. (Mp Castorena MD) Jenny Ellis Mar 06, 2017 13:35 Mp Castorena MD Mar 06, 2017 21:57
[2017-03-06] MEDS: PANTOPRAZOLE SODIUM 40 MG VIAL IV PUSH SCH (14:04)
[2017-03-06] MEDS: HYDROmorphone HCL PF 1 MG/ML VIAL IV PUSH PRN ×2 (15:16→22:14)
[2017-03-06] MEDS: TIMOLOL MALEATE 0.5% OPHT SOLN 5 ML BTL EACH EYE SCH ×2 (15:59→22:13)
--- NOTE | 2017-03-06 17:54 | HHI.NSPN ---
History Chief Complaint: Pt very lethargic. Interval History 02/20/17: Pt awake sitting up in chair. 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 Denies radiculopathy into the lower extremities. He states he has stable paresthesias or numbness feet and hands from his neuropathy. 02/24/17: Pt awake and alert, sitting up in chair. Complains of incisional back pain but no radiculopathy in LEs. Paresthesias in feet stable, hx of neuropathy. He ambulates but acknowledges he needs assistance getting oob and out of chair. Agrees he may need short term rehab stay. 02/25/17: Pt sitting up in chair. Complains of some sob when moving. Transfer to rehab was held yesterday secondary to reports pt desaturates when ambulating to 88. He states when sitting in chair no sob. No chest pain. He has Incisional back pain. No radiculopathy in LEs. Stable paresthesias in feet from neuropathy. 02/27/17: Pt awake and alert. Sitting up in chair. No radiculopathy in LEs. Hx of Neuropathy in feet. Pt with some desaturation today with ambulation pr RN. 02/28/17: Pt awake transferred to ICU yesterday. Incisional pain controlled. Pt with sob especially with activity. Abdomen distended, Positive bs. Imaging reports reviewed and noted. 03/03/17: Delayed note entry. Pt fatigued but arousable. States low back pain controlled. No radiculopathy in LEs. Pt scheduled for a paracentesis today. 03/04/17: Pt awakens to voice. He was transferred to medical ICU for hypotension. He had a paracentesis 03/03 and had 7 liters of fluid removed. He states his abdomen feels a little better. He states his back isn't hurting much. No radiculopathy in LEs. Paresthesias in feet stable from his neuropathy. 03/06/17: Pt very lethargic. Arousable to pain. Speech is not clear secondary to his level of alertness. abdomen distended. System Review Comments Not able to obtain given clinical exam. Exam Results Vital Signs Date Time Temp Pulse Resp B/P Pulse Ox O2 Delivery O2 Flow Rate FiO2 03/06/17 16:00 96 Nasal Cannula 4.00 03/06/17 16:00 101 03/06/17 16:00 98.1 16 88/50 Intake and Output 03/05/17 03/05/17 03/06/17 08:00 16:00 00:00 Intake Total 661 ml 650 ml Output Total 175 ml 150 ml Balance 486 ml 500 ml Physical Examination Resp: CTA bilaterally. Heart: NSR no murmurs Abd: Distended. Diminished bs. Skin: no cyanosis or erythema. Neuro: Pt lethargic. Opens eyes slightly to pain. not following commands. Muscle: Not following commands for muscle testing. Lab, Micro, Other Results Last Impressions Chest X-Ray 03/06/17 0913 Signed Impressions: Service Date/Time: March 09:14 - CONCLUSION: 1. Left internal central line tip somewhat obscured but likely in the junction of the SVC and a left brachiocephalic vein. 2. No pneumothorax. 3. Persistent low lung volumes with bibasilar atelectasis and probable trace left pleural effusion. Andres Ortiz MD Cyst Biopsy Asp-Paracentesis US 03/03/17 0000 Signed Impressions: Service Date/Time: Friday, March 03, 2017 17:06 - CONCLUSION: Uncomplicated ultrasound guided paracentesis. Adriel Alaniz MD Abdomen X-Ray 03/01/17 0000 Signed Impressions: Service Date/Time: Wednesday, March 01, 2017 14:41 - CONCLUSION: Nonspecific bowel gas pattern. Justice Muhammad MD FACR Renal Ultrasound 02/28/17 0000 Signed Impressions: Service Date/Time: Tuesday, February 28, 2017 21:46 - CONCLUSION: 1. Small volume ascites. 2. No obstruction. 3. Totally decompressed urinary bladder which is poorly evaluated. Meliton Campbell Jr., MD Lower Extremity Ultrasound 02/28/17 0000 Signed Impressions: Service Date/Time: Tuesday, February 28, 2017 08:47 - CONCLUSION: No DVT in either lower extremity. Johny Woods MD Chest CT 02/27/17 0000 Signed Impressions: Service Date/Time: February 17:10 - CONCLUSION: 1. Elevated right hemidiaphragm with basilar atelectasis and scarring. No effusions. No adenopathy. See abdomen CT for findings of abnormal fluid accumulation below the diaphragms. Hang Tyson MD Abdomen/Pelvis CT 02/27/17 0000 Signed Impressions: Service Date/Time: February 17:13 - CONCLUSION: 1. Ascites and diffuse omental caking/thickening typical of peritoneal carcinomatosis. Primary uncertain but possibly gastric as there appears to be some wall thickening along the greater curvature of the body. Direct visualization with endoscopy recommended. 2. I don't clearly see the appendix. 3. No other evidence of metastatic disease. 4. Umbilical hernia. Adriel Krueger MD Lumbar Spine X-Ray 02/19/17 0000 Signed Impressions: Service Date/Time: Sunday, February 19, 2017 08:46 - CONCLUSION: 1. Postsurgical changes as above. Georges Cardozo MD Laboratory Tests Test 03/06/17 03/06/17 09:15 09:30 White Blood Count 20.5 TH/MM3 Red Blood Count 3.02 MIL/MM3 Hemoglobin 9.2 GM/DL Hematocrit 28.7 % Mean Corpuscular Volume 95.3 FL Mean Corpuscular Hemoglobin 30.6 PG Mean Corpuscular Hemoglobin 32.1 % Concent Red Cell Distribution Width 15.5 % Platelet Count 192 TH/MM3 Mean Platelet Volume 7.8 FL Neutrophils (%) (Auto) 87.3 % Lymphocytes (%) (Auto) 1.8 % Monocytes (%) (Auto) 5.2 % Eosinophils (%) (Auto) 5.4 % Basophils (%) (Auto) 0.3 % Neutrophils # (Auto) 17.9 TH/MM3 Lymphocytes # (Auto) 0.4 TH/MM3 Monocytes # (Auto) 1.1 TH/MM3 Eosinophils # (Auto) 1.1 TH/MM3 Basophils # (Auto) 0.1 TH/MM3 CBC Comment DIFF FINAL Differential Comment Sodium Level 134 MEQ/L Potassium Level 4.5 MEQ/L Chloride Level 100 MEQ/L Carbon Dioxide Level 19.6 MEQ/L Anion Gap 14 MEQ/L Blood Urea Nitrogen 99 MG/DL Creatinine 4.59 MG/DL Estimat Glomerular Filtration 12 ML/MIN Rate Random Glucose 85 MG/DL Calcium Level 9.1 MG/DL Phosphorus Level 5.9 MG/DL Magnesium Level 2.6 MG/DL Total Bilirubin 1.0 MG/DL Aspartate Amino Transf 14 U/L (AST/SGOT) Alanine Aminotransferase 16 U/L (ALT/SGPT) Alkaline Phosphatase 40 U/L Total Creatine Kinase 131 U/L Total Protein 5.2 GM/DL Albumin 2.6 GM/DL Prothrombin Time 13.4 SEC Prothromb Time International 1.2 RATIO Ratio Activated Partial 39.7 SEC Thromboplast Time Fibrinogen 569 mg/dL 03/05/17 03/05/17 03/06/17 15:00 23:00 07:00 Intake Total 661 ml 650 ml 819 ml Output Total 175 ml 150 ml 300 ml Balance 486 ml 500 ml 519 ml Intake Oral 111 ml 150 ml 250 ml IV Total 50 ml 69 ml Albumin 500 ml 500 ml 500 ml Output Urine Total 175 ml 150 ml 300 ml Medical Decision Making Impression and Plan A: 81 y/o M s/p L4, L5 and S1 decompressive laminectomy with medial facetectomy and foraminotomy and L5/S1 TLIF with cage and pedicle screw fixation. P: Continue with medical workup and treatment. Johny Moore Mar 06, 2017 17:54
[2017-03-06 19:52] LABS: BICARBONATE 19.7 MEQ/L (21.0-32.0); POTASSIUM 4.6 MEQ/L (3.5-5.1)
[2017-03-06] MEDS: ATORVASTATIN 10 MG TAB PO SCH (20:06)
[2017-03-06] MEDS: traZODone HCL 50 MG TAB PO SCH (20:06)
[2017-03-06] MEDS: LATANOPROST 0.005% OPHT SOLN 2.5 ML BTL EACH EYE SCH (21:00)
[2017-03-06] MEDS: ONDANSETRON HCL 4 MG/2 ML VIAL IV PRN (23:39)
[2017-03-07] VITALS (50 sets, daily range): BP systolic 81–106; BP diastolic 48–65; PULSE 80–104; RESP 12–34; TEMP 97–98.6; O2SAT 45–99
[2017-03-07] MEDS: PIPERACIL-TAZO 2.25 GM PREMIX 50 ML IV SCH ×3 (05:29→23:18)
[2017-03-07] MEDS: ALBUMIN HUMAN 5% 25 GM/500 ML BOTTLE IV SCH ×3 (05:29→21:11)
[2017-03-07] MEDS: INSULIN NovoLIN REGULAR SUPPLEMENTAL SCALE SQ SCH ×3 (05:56→18:00)
[2017-03-07 07:49] LABS: AUTOMATED NEUTROPHIL # 25.3 TH/MM3 (1.8-7.7); BASOPHIL # 0.1 TH/MM3 (0-0.2); BASOPHIL % 0.2 % (0.0-2.0); EOSINOPHIL # 0.9 TH/MM3 (0-0.4); EOSINOPHIL % 3.3 % (0.0-4.0); LYMPH % 1.5 % (9.0-44.0); LYMPHOCYTE # 0.4 TH/MM3 (1.0-4.8); MEAN CELL VOLUME 95.1 FL (80.0-100.0); MEAN CORPUSCULAR HEMOGLOBIN 30.8 PG (27.0-34.0); MEAN CORPUSCULAR HGB CONC 32.4 % (32.0-36.0); MONO % 6.7 % (0.0-8.0); NEUT % 88.3 % (16.0-70.0); PLATELET COUNT 242 TH/MM3 (150-450); RED BLOOD COUNT 3.16 MIL/MM3 (4.50-5.90); RED CELL DISTRIBUTION WIDTH 15.5 % (11.6-17.2); WHITE BLOOD COUNT 28.7 TH/MM3 (4.0-11.0)
[2017-03-07 07:51] LABS: HEMO FLAGS AUTO DIFF
[2017-03-07 08:11] LABS: BICARBONATE 19.2 MEQ/L (21.0-32.0); MAGNESIUM 2.6 MG/DL (1.5-2.5); POTASSIUM 4.9 MEQ/L (3.5-5.1)
[2017-03-07] MEDS: ASPIRIN EC 81 MG TABEC PO SCH (08:38)
[2017-03-07] MEDS: ACETAMINOPHEN/HYDROcodone 325 MG/10 MG TAB PO PRN (08:38)
[2017-03-07] MEDS: SODIUM CHLORIDE 0.9% FLUSH 10 ML FLUSH IVF SCH (08:38)
[2017-03-07] MEDS: PANTOPRAZOLE SODIUM 40 MG VIAL IV PUSH SCH (08:38)
[2017-03-07] MEDS: DOCUSATE SODIUM 100 MG CAP PO SCH ×2 (08:39→20:58)
[2017-03-07] MEDS: TIMOLOL MALEATE 0.5% OPHT SOLN 5 ML BTL EACH EYE SCH ×2 (08:39→19:41)
[2017-03-07] MEDS: ASPIRIN 81 MG CHEW TAB PO SCH (08:39)
[2017-03-07] MEDS: ENOXAPARIN SODIUM 30 MG/0.3 ML SYRINGE SQ SCH (08:40)
[2017-03-07 09:16] LABS: BANDS 40 % (0-6); EOSINOPHILS 1 % (0-4); NEUTROPHIL # MANUAL DIFF 26.1 TH/MM3 (1.8-7.7); POLYS (SEG NEUTROPHILS) 51 % (16-70); WBC DIFF SAMPLE 100
[2017-03-07 09:18] LABS: PLATELET ESTIMATE SMEAR NORMAL (NORMAL); PLATELET MORPHOLOGY NORMAL (NORMAL); SCAN/DIFF FINAL DIFF MANUAL
--- NOTE | 2017-03-07 09:47 | HHI.NSPN ---
History Chief Complaint: Pt more awake this morning, but states he doesn't want to go on like this. Interval History 02/20/17: Pt awake sitting up in chair. 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 Denies radiculopathy into the lower extremities. He states he has stable paresthesias or numbness feet and hands from his neuropathy. 02/24/17: Pt awake and alert, sitting up in chair. Complains of incisional back pain but no radiculopathy in LEs. Paresthesias in feet stable, hx of neuropathy. He ambulates but acknowledges he needs assistance getting oob and out of chair. Agrees he may need short term rehab stay. 02/25/17: Pt sitting up in chair. Complains of some sob when moving. Transfer to rehab was held yesterday secondary to reports pt desaturates when ambulating to 88. He states when sitting in chair no sob. No chest pain. He has Incisional back pain. No radiculopathy in LEs. Stable paresthesias in feet from neuropathy. 02/27/17: Pt awake and alert. Sitting up in chair. No radiculopathy in LEs. Hx of Neuropathy in feet. Pt with some desaturation today with ambulation pr RN. 02/28/17: Pt awake transferred to ICU yesterday. Incisional pain controlled. Pt with sob especially with activity. Abdomen distended, Positive bs. Imaging reports reviewed and noted. 03/03/17: Delayed note entry. Pt fatigued but arousable. States low back pain controlled. No radiculopathy in LEs. Pt scheduled for a paracentesis today. 03/04/17: Pt awakens to voice. He was transferred to medical ICU for hypotension. He had a paracentesis 03/03 and had 7 liters of fluid removed. He states his abdomen feels a little better. He states his back isn't hurting much. No radiculopathy in LEs. Paresthesias in feet stable from his neuropathy. 03/06/17: Pt very lethargic. Arousable to pain. Speech is not clear secondary to his level of alertness. abdomen distended. 03/07/17: Pt awake compared to last night when I saw him. He complains of "pain all over". He states he doesn't want to go on like this. He is wanting comfort care. Notes reviewed and critical care has discussed hospice with and family. System Review Comments Pt complains of pain all over. Denies chills. Exam Results Vital Signs Date Time Temp Pulse Resp B/P Pulse Ox O2 Delivery O2 Flow Rate FiO2 03/07/17 09:05 99 Nasal Cannula 4.00 03/07/17 08:00 98 03/07/17 08:00 98.5 26 96/58 Intake and Output 03/06/17 03/06/17 03/07/17 08:00 16:00 00:00 Intake Total 819 ml 792 ml 579 ml Output Total 300 ml 50 ml 50 ml Balance 519 ml 742 ml 529 ml Physical Examination Resp: CTA bilaterally. Heart: NSR no murmurs Abd: Distended. Diminished bs. Skin: no cyanosis or erythema. Neuro: Pt awake. He is oriented to year. He states he is lucid. He follows commands. Muscle: Follows commands, trigonometry tutor hands and moves toes. Lab, Micro, Other Results Laboratory Tests Test 03/06/17 03/07/17 18:31 06:15 Sodium Level 132 MEQ/L 134 MEQ/L Potassium Level 4.6 MEQ/L 4.9 MEQ/L Chloride Level 98 MEQ/L 100 MEQ/L Carbon Dioxide Level 19.7 MEQ/L 19.2 MEQ/L Anion Gap 14 MEQ/L 15 MEQ/L Blood Urea Nitrogen 95 MG/DL 106 MG/DL Creatinine 5.09 MG/DL 5.60 MG/DL Estimat Glomerular Filtration 11 ML/MIN 10 ML/MIN Rate Random Glucose 80 MG/DL 83 MG/DL Calcium Level 8.9 MG/DL 8.7 MG/DL White Blood Count 28.7 TH/MM3 Red Blood Count 3.16 MIL/MM3 Hemoglobin 9.7 GM/DL Hematocrit 30.0 % Mean Corpuscular Volume 95.1 FL Mean Corpuscular Hemoglobin 30.8 PG Mean Corpuscular Hemoglobin 32.4 % Concent Red Cell Distribution Width 15.5 % Platelet Count 242 TH/MM3 Mean Platelet Volume 8.0 FL Neutrophils (%) (Auto) 88.3 % Lymphocytes (%) (Auto) 1.5 % Monocytes (%) (Auto) 6.7 % Eosinophils (%) (Auto) 3.3 % Basophils (%) (Auto) 0.2 % Neutrophils # (Auto) 25.3 TH/MM3 Lymphocytes # (Auto) 0.4 TH/MM3 Monocytes # (Auto) 1.9 TH/MM3 Eosinophils # (Auto) 0.9 TH/MM3 Basophils # (Auto) 0.1 TH/MM3 CBC Comment AUTO DIFF Differential Total Cells 100 Counted Neutrophils % (Manual) 51 % Band Neutrophils % 40 % Lymphocytes % 3 % Monocytes % 5 % Eosinophils % 1 % Neutrophils # (Manual) 26.1 TH/MM3 Differential Comment FINAL DIFF MANUAL Platelet Estimate NORMAL Platelet Morphology Comment NORMAL Phosphorus Level 6.7 MG/DL Magnesium Level 2.6 MG/DL 03/06/17 03/06/17 03/07/17 15:00 23:00 07:00 Intake Total 792 ml 579 ml 622 ml Output Total 50 ml 50 ml 20 ml Balance 742 ml 529 ml 602 ml Intake Oral 120 ml IV Total 172 ml 79 ml 122 ml Albumin 500 ml 500 ml 500 ml Output Urine Total 50 ml 50 ml 20 ml # Bowel Movements 1 Medical Decision Making Impression and Plan A: 81 y/o M s/p L4, L5 and S1 decompressive laminectomy with medial facetectomy and foraminotomy and L5/S1 TLIF with cage and pedicle screw fixation. Pts leukocytosis continues to increase and is now 28.7. His renal function continues to decrease with a BUN of 106, Cr of 5.6, and GFR of 10. Pt refusing dialysis and wants to stop care other than comfort. P: Pt is requesting comfort care He is a DNR and is refusing HD I called pts and left a message to call me back. I agree with pts request of Hospice and comfort care. Critical care has also discussed this with pts and will inform us her their request today. Johny Moore Mar 07, 2017 09:47
[2017-03-07] MEDS: HYDROmorphone HCL PF 1 MG/ML VIAL IV PUSH PRN ×3 (10:59→19:41)
--- NOTE | 2017-03-07 11:01 | HHI.CCPN ---
Subjective Remarks/Hospital Course Hospital Course: 81 y/o man s/p lumbar spine surgery for intractable pain. Uneventful perioperative course but has retained significant amount of fluid manifested as ascites and peripheral edema, particularly prominent in the legs. His SOB has improved modestly after diuresis. CXR shows elevated right diaphragm and good lung expansion. No signs of venous congestion. CT abdomen concerning for metastatic disease and ascites. He denies chest pain or abdominal pain. 02/28: still persistently oliguric. cr continues to rise. still dysnpeic on exertion, but hypoxia has improved. 03/01: improving after volume resuscitation overnight. Cr plateaued. this morning some mild abdominal pain after EGD. KUB negative for acute disease process. 03/02: Cr stable, at this point, patient appears more clinically euvolemic. likely Cr is ATN related at this point. uop continues to increase overnight to ~ 900cc/24h. GI workup ongoing. 03/03 CCM reconsulted for hypotension. Patient has been hypotensive since yesterday morning. He was given NS 1 liter bolus at midnight and Albumin. Patient was transferred to ICU for hypotension current BP 84/59 with MAP 66mmHg. He underwent US guided paracentesis yesterday with removal 7.2L. Awake, alert lying in bed in NAD. Afebrile. 03/05: MAP continues around 65 mmHg. Arousable. Knows he is in the hospital. Noted worsening creatinine. Subjective: 03/06: CVL placed today due to persistent hypotension. Arousable and follows commands. Afebrile. A.m. labs still pending. Did not respond to Bumex drip. 03/07: Worsening renal function. Remains oliguric. Patient remains awake and follows commands. Hospice evaluation/meeting pending. Still at Quan-synephrine at 60 mcg/min Objective Vital Signs Date Time Temp Pulse Resp B/P Pulse Ox O2 Delivery O2 Flow Rate FiO2 03/07/17 10:00 98 03/07/17 09:05 99 Nasal Cannula 4.00 03/07/17 08:00 98.5 26 96/58 Intake and Output 03/06/17 03/06/17 03/07/17 08:00 16:00 00:00 Intake Total 819 ml 792 ml 579 ml Output Total 300 ml 50 ml 50 ml Balance 519 ml 742 ml 529 ml Result Diagram: 03/07/1715 03/07/1715 Other Results Microbiology Date/Time Procedure Status Source Growth 03/05/17 09:30 Urine Culture - Final Complete Urine Clean Catch <10,000 CFU/ML MIXED [place]... Imaging Last Impressions Cyst Biopsy Asp-Paracentesis US 03/03/17 0000 Signed Impressions: Service Date/Time: Friday, March 03, 2017 17:06 - CONCLUSION: Uncomplicated ultrasound guided paracentesis. Adriel Alaniz MD Chest X-Ray 03/03/17 0000 Signed Impressions: Service Date/Time: Friday, March 03, 2017 12:39 - CONCLUSION: Very underinflated examination with likely atelectasis at the lung bases. Otherwise, no acute finding is appreciated. Adriel Kenny MD Abdomen X-Ray 03/01/17 0000 Signed Impressions: Service Date/Time: Wednesday, March 01, 2017 14:41 - CONCLUSION: Nonspecific bowel gas pattern. Justice Muhammad MD FACR Renal Ultrasound 02/28/17 0000 Signed Impressions: Service Date/Time: Tuesday, February 28, 2017 21:46 - CONCLUSION: 1. Small volume ascites. 2. No obstruction. 3. Totally decompressed urinary bladder which is poorly evaluated. Meliton Campbell Jr., MD Lower Extremity Ultrasound 02/28/17 0000 Signed Impressions: Service Date/Time: Tuesday, February 28, 2017 08:47 - CONCLUSION: No DVT in either lower extremity. Johny Woods MD Chest CT 02/27/17 0000 Signed Impressions: Service Date/Time: February 17:10 - CONCLUSION: 1. Elevated right hemidiaphragm with basilar atelectasis and scarring. No effusions. No adenopathy. See abdomen CT for findings of abnormal fluid accumulation below the diaphragms. Hang Tyson MD Abdomen/Pelvis CT 02/27/17 0000 Signed Impressions: Service Date/Time: February 17:13 - CONCLUSION: 1. Ascites and diffuse omental caking/thickening typical of peritoneal carcinomatosis. Primary uncertain but possibly gastric as there appears to be some wall thickening along the greater curvature of the body. Direct visualization with endoscopy recommended. 2. I don't clearly see the appendix. 3. No other evidence of metastatic disease. 4. Umbilical hernia. Adriel Krueger MD Lumbar Spine X-Ray 02/19/17 0000 Signed Impressions: Service Date/Time: Sunday, February 19, 2017 08:46 - CONCLUSION: 1. Postsurgical changes as above. Georges Cardozo MD Objective Remarks GENERAL: 81-year-old male, critically ill, remains on quan-synephrine SKIN: Warm and dry. No rash or petechiae HEAD: Normocephalic. EYES: Pupils are about 3 mm bilaterally and sluggish. No scleral icterus NECK: Supple, trachea midline. No JVD or lymphadenopathy. Left IJ is clean dry and intact CARDIOVASCULAR: Tachycardic, RR. S1, S2. No S4 without murmur RESPIRATORY: Diminished breath sounds throughout due to body habitus. GASTROINTESTINAL: Abdomen distended and firm. Some fluid draining from left lower quadrant paracentesis site. Clear/yellow MUSCULOSKELETAL: Significant bilateral lower extremity ++p edema. NEURO: Proximal muscle weakness noted. Strength 4+5 bilateral lower extremities. Positive peripheral sensory neuropathy Date of Insertion: Mar 06, 2017 Line: Central Venous Catheter Side: Left Location: Internal, Jugular A/P Assessment and Plan Neuro/Psych: Status post L5-S1 transforaminal interbody fusion; L4, L5 and S1 decompressive laminectomy with medial facetectomy and foraminotomy; L5-S1 pedicle screw fixation; L5-S1 interbody cage placement; microsurgical technique secondary to Intractable low back pain with radiculopathy and neurogenic claudication; L4-5 facet and ligamentum flavum hypertrophy with associated spinal stenosis; L5-S1 severe degenerative disc disease with the facet hypertrophy and grade 1 spondylolisthesis with associated foraminal stenosis on 02/[address] Dumont Glaucoma Acute encephalopathy likely toxic metabolic Chronic narcotic use Severe sensory peripheral neuropathy On Percocets 10/325 one to 2 tablets as needed for pain. On Percocets at home as needed for pain Continue timolol 0.5% 1 drop each eye twice a day Continue latanoprost 0.005% 1 drop each eye at night At home on Requip 1 mg at noon, 0.5 mg at 1700 hrs. and 1 mg at 2100. Currently on 0.5 twice a day At home on Neurontin 600 mg at noon, 300 mg at 1700, 1900 and 2100. Currently on 300 mg twice a day. Gabapentin level ordered 03/06 Continue trazodone 100 mg daily at bedtime for depression CV: Likely hypovolemic shock secondary to third spacing with significant ascites Dyslipidemia History of hypertension Currently on Lipitor 10 mg at night Holding losartan 25 mg daily light of acute kidney injury Continue aspirin 81 mg by mouth daily Continue quan-synephrine to keep MAP>65 Resp: Acute respiratory insufficiency Nasal cannula to maintain saturations greater than equal to 92% currently on 4 L Incentive spirometry while awake Chest x-ray 03/03 revealed no acute cardio pulmonary findings/possibly lower lobe atelectasis GI: Protonix for GI prophylaxis Currently on schedule albumin 25 g IV every 8 hours per renal Colace/MiraLAX for bowel regimen s/p paracentesis for ascites : Suero has been placed for accurate I's and O's in a critically ill patient Endo: Diabetes mellitus Moderate sliding scale insulin with Accu-Cheks every 6 to maintain euglycemia. Renal: Acute kidney injury secondary to renal hypoperfusion initially and now likely evolving into ATN pt refuses hemodialysis. brought in living will Currently diuresed with Bumex drip Dr. Greenberg/nephrology following Initially urine eosinophils negative. 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 Followed by gastroenterology No active bleeding. No indication for transfusion of blood. at this time ID: Currently on Zosyn day #6 5500 WBCs in peritoneal fluid 03/04- blood cultures 2 - no growth 03/03 - peritoneal fluid - Gram stain negative FEN: Hyponatremia Hypercalcemia - likely consistent with hypercalcemia malignancy Low parathyroid hormone. Vitamin D 25 low. Elevated PTH RP at 10. MSK: PT evaluate and treat GI prophylaxis- on Protonix DVT prophylaxis- On Lovenox 30mg daily Level 2 Family meeting with hospice today. Further recommendations to follow Shannon Morel MD Mar 07, 2017 11:01
--- NOTE | 2017-03-07 11:05 | HHI.NPPN ---
Subjective History of Present Illness 81 y/o male, was admitted on 02/19 for lumbar surgery, since he has had chronic pain for years. Other PMH of obesity, DM II, HTN, KARYNA, RLS, and CKD, has been following with me in the office. His baseline Creatinine is close to 1.5. Additional Remarks Patient remain lethargic and sleepy, with nasal cannula, mumbling, not following any commands. Review of Systems General Constitutional: Fatigue Cardiovascular Cardiac: MOSELEY Objective Data Data 03/06/17 03/07/17 19:00 07:00 Intake Total 792 ml 1201 ml Output Total 50 ml 70 ml Balance 742 ml 1131 ml Intake Oral 120 ml IV Total 172 ml 201 ml Albumin 500 ml 1000 ml Output Urine Total 50 ml 70 ml # Bowel Movements 1 Vital Signs Date Time Temp Pulse Resp B/P Pulse Ox O2 Delivery O2 Flow Rate FiO2 03/07/17 10:00 98 03/07/17 09:05 99 Nasal Cannula 4.00 03/07/17 08:00 97 Nasal Cannula 4.00 03/07/17 08:00 98 03/07/17 08:00 98.5 98 26 96/58 98 03/07/17 06:00 100 03/07/17 04:00 98.6 102 34 92/53 96 03/07/17 04:00 95 Nasal Cannula 4.00 03/07/17 04:00 102 03/07/17 02:00 100 03/07/17 00:00 96 Nasal Cannula 4.00 03/07/17 00:00 98.0 103 28 97/56 94 03/07/17 00:00 103 03/06/17 22:00 98 03/06/17 20:11 98 Nasal Cannula 4.00 03/06/17 20:00 98.9 90 15 92/52 97 03/06/17 20:00 97 Nasal Cannula 4.00 03/06/17 20:00 90 03/06/17 18:00 90 03/06/17 16:00 96 Nasal Cannula 4.00 03/06/17 16:00 101 03/06/17 16:00 98.1 101 16 88/50 98 03/06/17 14:00 98 03/06/17 12:00 96 Nasal Cannula 4.00 03/06/17 12:00 100 03/06/17 12:00 98.6 100 16 86/50 96 -: 03/07/17 0615 03/07/17 0615 Physical Exam General Appearance: No Acute Distress, Comfortable Eyes Eye Exam: Pupils Equal Throat Throat Exam: Oral Mucosa [place] & Moist Neck Neck Exam: Neck Supple, Trachea Midline Pulmonary Resp Exam: No Distress, Rhonchi, Decreased Bases, Diminished Breath Sounds Cardiology CV Exam: Regular, Normal Sinus Rhythm Gastrointestinal/Abdomen GI Exam: Soft, Non-Tender, Bowel Sounds Present Extremeties Extremities Exam: Moderate Edema, Pitting Edema, Dependent Edema Neurologic Neuro Exam: Alert, Awake, Oriented Psychiatric Psych Exam: Appropriate Responses Assessment/Plan Problem List: (1) NATHAN (acute kidney injury) Plan: NATHAN from diminished renal perfusion due to hypotension, may have progressed to ATN electrolytes are unremarkable, he is fluid overloaded, see below at this time avoid nephrotoxic substances obtain UA for analysis, obtain urine electrolytes Post EGD, and Paracentesis. Gastric and Duodenal Biopsy reported, result seen. BP is on lower side, getting Albumin IV. Most likely ATN due to Hypotension. started Bumex infusion but not much response. Urine out put is low. Creatinine increasing. Cytology is negative for malignant cells. Family made him DNR and does not want Dialysis. D/W the again. (2) Lumbar stenosis with neurogenic claudication Plan: s/p L5-S1 transforaminal interbody fusion/ L4, L5 and S1 decompressive laminectomy and fixation on 02/19/[address] Dumont. cleared for discharge when medical issues are managed per neurosurgery he declined rehab placement, home with home health care/PT/OT pain medications PRN (3) HTN (hypertension), benign Plan: BP borderline low, hold antihypertensives (4) Diabetes mellitus type 2, noninsulin dependent Plan: home metformin has been held continue insulin, follow glucose, goal 140-180 mg/dL (5) Edema Plan: given Lasix 80 mg IV today needs diuresis, begin Bumex 1 mg BID, titrate as tolerated/needed monitor renal response to diuretic therapy follow weights, I/O, limit oral fluid intake, avoid IVF ordered LOVE hose, to elevate, low Na diet (6) Hypercalcemia Plan: may be due to immobility check PTH, vitamin D levels CT abd/chest/pelvis to rule out malignancy per hospitalist follow calcium levels Leland Greenberg MD Mar 07, 2017 11:05
[2017-03-07] MEDS: GABAPENTIN 300 MG CAP PO SCH ×2 (12:00→20:59)
[2017-03-07] MEDS ORDERED: HYDROmorphone HCL PF 2 MG/ML VIAL IV ONE (17:15)
[2017-03-07] MEDS ORDERED: LORazepam 2 MG/ML VIAL IV PRN (17:15)
[2017-03-07] MEDS: BUMETANIDE INJ 100 ML IV SCH (17:27)
[2017-03-07] MEDS: PHENYLEPHRINE INJ 160 MG in DEXTROSE 5% IN WATE 500 ML INJ 484 ML IV SCH ×2 (19:39)
[2017-03-07] MEDS: LATANOPROST 0.005% OPHT SOLN 2.5 ML BTL EACH EYE SCH (19:40)
[2017-03-07] MEDS: traZODone HCL 50 MG TAB PO SCH (20:58)
[2017-03-07] MEDS: ATORVASTATIN 10 MG TAB PO SCH (20:58)
[2017-03-08] VITALS (9 sets, daily range): BP systolic 86–92; BP diastolic 51–55; PULSE 87–96; RESP 14–30; TEMP 97.8–98.2; O2SAT 92–95
[2017-03-08] MEDS: INSULIN NovoLIN REGULAR SUPPLEMENTAL SCALE SQ SCH ×3 (05:02→12:00)
[2017-03-08] MEDS: ALBUMIN HUMAN 5% 25 GM/500 ML BOTTLE IV SCH ×2 (05:03→14:21)
[2017-03-08] MEDS: PIPERACIL-TAZO 2.25 GM PREMIX 50 ML IV SCH ×2 (05:03→14:22)
[2017-03-08] MEDS: HYDROmorphone HCL PF 1 MG/ML VIAL IV PUSH PRN ×2 (06:15→12:17)
[2017-03-08] MEDS: DOCUSATE SODIUM 100 MG CAP PO SCH (07:35)
[2017-03-08] MEDS: GABAPENTIN 300 MG CAP PO SCH (07:35)
[2017-03-08] MEDS: ASPIRIN 81 MG CHEW TAB PO SCH (07:35)
[2017-03-08] MEDS: ASPIRIN EC 81 MG TABEC PO SCH (07:35)
[2017-03-08] MEDS: POLYETHYLENE GLYCOL 17 GM PKG PO SCH (07:35)
--- NOTE | 2017-03-08 08:17 | HHI.CCPN ---
Subjective Remarks/Hospital Course Hospital Course: 81 y/o man s/p lumbar spine surgery for intractable pain. Uneventful perioperative course but has retained significant amount of fluid manifested as ascites and peripheral edema, particularly prominent in the legs. His SOB has improved modestly after diuresis. CXR shows elevated right diaphragm and good lung expansion. No signs of venous congestion. CT abdomen concerning for metastatic disease and ascites. He denies chest pain or abdominal pain. 02/28: still persistently oliguric. cr continues to rise. still dysnpeic on exertion, but hypoxia has improved. 03/01: improving after volume resuscitation overnight. Cr plateaued. this morning some mild abdominal pain after EGD. KUB negative for acute disease process. 03/02: Cr stable, at this point, patient appears more clinically euvolemic. likely Cr is ATN related at this point. uop continues to increase overnight to ~ 900cc/24h. GI workup ongoing. 03/03 CCM reconsulted for hypotension. Patient has been hypotensive since yesterday morning. He was given NS 1 liter bolus at midnight and Albumin. Patient was transferred to ICU for hypotension current BP 84/59 with MAP 66mmHg. He underwent US guided paracentesis yesterday with removal 7.2L. Awake, alert lying in bed in NAD. Afebrile. 03/05: MAP continues around 65 mmHg. Arousable. Knows he is in the hospital. Noted worsening creatinine. Subjective: 03/06: CVL placed today due to persistent hypotension. Arousable and follows commands. Afebrile. A.m. labs still pending. Did not respond to Bumex drip. 03/07: Worsening renal function. Remains oliguric. Patient remains awake and follows commands. Hospice evaluation/meeting pending. Still at Quan-synephrine at 60 mcg/min 03/08: Remains anuric. Currently on quan-synephrine 120 mcg/m. family to decide on hospice/comfort measures today Objective Vital Signs Date Time Temp Pulse Resp B/P Pulse Ox O2 Delivery O2 Flow Rate FiO2 03/08/17 07:03 18 03/08/17 06:00 94 03/08/17 04:00 97.9 86/55 93 03/08/17 04:00 Nasal Cannula 4.00 Intake and Output 03/07/17 03/07/17 03/08/17 08:00 16:00 00:00 Intake Total 622 ml 652 ml 166 ml Output Total 20 ml 0 ml 5 ml Balance 602 ml 652 ml 161 ml Result Diagram: 03/07/17 0615 03/07/1715 Other Results Microbiology Date/Time Procedure Status Source Growth 03/05/17 09:30 Urine Culture - Final Complete Urine Clean Catch <10,000 CFU/ML MIXED [place]... Imaging Last Impressions Cyst Biopsy Asp-Paracentesis US 03/03/17 Signed Impressions: Service Date/Time: Friday, March 03, 2017 17:06 - CONCLUSION: Uncomplicated ultrasound guided paracentesis. Adriel Alaniz MD Chest X-Ray 03/03/17 Signed Impressions: Service Date/Time: Friday, March 03, 2017 12:39 - CONCLUSION: Very underinflated examination with likely atelectasis at the lung bases. Otherwise, no acute finding is appreciated. Adriel Kenny MD Abdomen X-Ray 03/01/17 Signed Impressions: Service Date/Time: Wednesday, March 01, 2017 14:41 - CONCLUSION: Nonspecific bowel gas pattern. Justice Muhammad MD FACR Renal Ultrasound 02/28/17 0000 Signed Impressions: Service Date/Time: Tuesday, February 28, 2017 21:46 - CONCLUSION: 1. Small volume ascites. 2. No obstruction. 3. Totally decompressed urinary bladder which is poorly evaluated. Meliton Campbell Jr., MD Lower Extremity Ultrasound 02/28/17 Signed Impressions: Service Date/Time: Tuesday, February 28, 2017 08:47 - CONCLUSION: No DVT in either lower extremity. Johny Woods MD Chest CT 02/27/17 0000 Signed Impressions: Service Date/Time: February 17:10 - CONCLUSION: 1. Elevated right hemidiaphragm with basilar atelectasis and scarring. No effusions. No adenopathy. See abdomen CT for findings of abnormal fluid accumulation below the diaphragms. Hang Tyson MD Abdomen/Pelvis CT 02/27/17 Signed Impressions: Service Date/Time: February 17:13 - CONCLUSION: 1. Ascites and diffuse omental caking/thickening typical of peritoneal carcinomatosis. Primary uncertain but possibly gastric as there appears to be some wall thickening along the greater curvature of the body. Direct visualization with endoscopy recommended. 2. I don't clearly see the appendix. 3. No other evidence of metastatic disease. 4. Umbilical hernia. Adriel Krueger MD Lumbar Spine X-Ray 02/19/17 0000 Signed Impressions: Service Date/Time: Sunday, February 19, 2017 08:46 - CONCLUSION: 1. Postsurgical changes as above. Georges Cardozo MD Objective Remarks GENERAL: 81-year-old male, critically ill lethargic, remains on quan- synephrine SKIN: Warm and dry. No rash or petechiae HEAD: Normocephalic. EYES: Pupils are about 3 mm bilaterally and sluggish. No scleral icterus NECK: Supple, trachea midline. No JVD or lymphadenopathy. Left IJ is clean dry and intact CARDIOVASCULAR: Tachycardic, RR. S1, S2. Currently on Quan-Synephrine 120 mcg/m RESPIRATORY: Diminished breath sounds throughout due to body habitus. GASTROINTESTINAL: Abdomen distended and firm. Some fluid draining from left lower quadrant paracentesis site. Clear/yellow MUSCULOSKELETAL: Significant bilateral lower extremity ++p edema. NEURO: Lethargic moaning, not following commands. Proximal muscle weakness noted. Date of Insertion: Mar 06, 2017 Line: Central Venous Catheter Side: Left Location: Internal, Jugular A/P Assessment and Plan Neuro/Psych: s/p L4, L5 and S1 decompressive laminectomy with medial facetectomy and foraminotomy and L5/S1 TLIF with cage and pedicle screw fixation on 02/[address] Dumont Acute encephalopathy likely toxic metabolic Chronic narcotic use Severe sensory peripheral neuropathy Glaucoma On Percocets 10/325 one to 2 tablets as needed for pain. On Percocets at home as needed for pain Continue timolol 0.5% 1 drop each eye twice a day, Continue latanoprost 0.005% 1 drop each eye at night At home on Requip 1 mg at noon, 0.5 mg at 1700 hrs. and 1 mg at 2100. Currently on 0.5 twice a day At home on Neurontin 600 mg at noon, 300 mg at 1700, 1900 and 2100. Currently on 300 mg twice a day. Gabapentin level ordered 03/06 Continue trazodone 100 mg daily at bedtime for depression CV: Likely hypovolemic shock secondary to third spacing with significant ascites Dyslipidemia History of hypertension Continue quan-synephrine to keep MAP>65 Currently on Lipitor 10 mg at night Holding losartan 25 mg daily light of acute kidney injury Continue aspirin 81 mg by mouth daily Resp: Acute respiratory insufficiency Nasal cannula to maintain saturations greater than equal to 90% currently on 4 L Incentive spirometry while awake Chest x-ray 03/03 revealed no acute cardio pulmonary findings/possibly lower lobe atelectasis GI: Protonix for GI prophylaxis Currently on schedule albumin 25 g IV every 8 hours per renal Colace/MiraLAX for bowel regimen s/p paracentesis for ascites Endo: Diabetes mellitus Moderate sliding scale insulin with Accu-Cheks every 6 to maintain euglycemia. Renal: Acute kidney injury secondary to renal hypoperfusion initially and now likely evolving into ATN Suero has been placed for accurate I's and O's in a critically ill patient pt refuses hemodialysis. brought in living will Currently diuresed with Bumex drip- remains anuric Dr. Greenberg/nephrology following Initially urine eosinophils negative. 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 Followed by gastroenterology No active bleeding. No indication for transfusion of blood. at this time ID: Currently on Zosyn day #7 5500 WBCs in peritoneal fluid 03/04- blood cultures 2 - no growth 03/03 - peritoneal fluid - Gram stain negative FEN: Hyponatremia Hypercalcemia - likely consistent with hypercalcemia malignancy Low parathyroid hormone. Vitamin D 25 low. Elevated PTH RP at 10. MSK: PT evaluate and treat GI prophylaxis- on Protonix DVT prophylaxis- On Lovenox 30mg daily Level 2 Family meeting with hospice today. Further recommendations to follow. Second son will be arriving today. possible transition to comfort measures and hospice Shannon Morel MD Mar 08, 2017 08:16
[2017-03-08] MEDS: TIMOLOL MALEATE 0.5% OPHT SOLN 5 ML BTL EACH EYE SCH (08:41)
[2017-03-08] MEDS: PANTOPRAZOLE SODIUM 40 MG VIAL IV PUSH SCH (08:41)
[2017-03-08] MEDS: ENOXAPARIN SODIUM 30 MG/0.3 ML SYRINGE SQ SCH (08:41)
[2017-03-08] MEDS: SODIUM CHLORIDE 0.9% FLUSH 10 ML FLUSH IVF SCH (08:41)
--- NOTE | 2017-03-08 10:34 | HHI.NPPN ---
Subjective History of Present Illness 81 y/o male, was admitted on 02/19 for lumbar surgery, since he has had chronic pain for years. Other PMH of obesity, DM II, HTN, KARYNA, RLS, and CKD, has been following with me in the office. His baseline Creatinine is close to 1.5. Additional Remarks Poorly responsive, family is at the bedside. Remains oligoanuric. Review of Systems General Constitutional: Fatigue Cardiovascular Cardiac: MOSELEY Objective Data Data 03/07/17 03/08/17 19:00 07:00 Intake Total 652 ml 829 ml Output Total 0 ml 10 ml Balance 652 ml 819 ml IV Total 152 ml 329 ml Albumin 500 ml 500 ml Output Urine Total 0 ml 10 ml # Bowel Movements 0 1 Vital Signs Date Time Temp Pulse Resp B/P Pulse Ox O2 Delivery O2 Flow Rate FiO2 03/08/17 08:46 93 Venturi Mask 50 03/08/17 08:45 93 Venturi Mask 50 03/08/17 08:00 92 03/08/17 08:00 95 Nasal Cannula 4.00 03/08/17 08:00 97.8 93 17 89/52 95 03/08/17 07:03 18 03/08/17 06:00 94 03/08/17 04:00 97.9 96 20 86/55 93 03/08/17 04:00 96 03/08/17 04:00 93 Nasal Cannula 4.00 03/08/17 02:00 92 03/08/17 00:00 98.2 90 14 92/51 95 03/08/17 00:00 95 Nasal Cannula 4.00 03/08/17 00:00 87 03/07/17 22:00 90 03/07/17 20:09 97 Nasal Cannula 3.50 03/07/17 20:00 98.0 87 12 86/50 98 03/07/17 20:00 87 03/07/17 20:00 96 Nasal Cannula 4.00 03/07/17 18:00 86 13 85/51 95 03/07/17 18:00 86 03/07/17 17:45 87 12 87/53 95 03/07/17 17:30 89 13 86/53 94 03/07/17 17:15 87 12 86/54 95 03/07/17 17:00 87 13 85/51 94 03/07/17 16:45 91 13 89/50 96 03/07/17 16:37 94 13 98/58 94 03/07/17 16:15 92 24 106/65 45 03/07/17 16:00 97.0 92 16 98/58 95 03/07/17 16:00 95 Nasal Cannula 4.00 03/07/17 16:00 87 03/07/17 15:45 87 13 93/53 94 03/07/17 15:30 89 13 93/53 94 03/07/17 15:16 91 18 104/58 86 03/07/17 15:00 88 14 95/53 93 03/07/17 14:45 86 12 89/53 94 03/07/17 14:30 85 13 83/52 94 03/07/17 14:25 84 13 86/53 94 03/07/17 14:15 86 13 82/51 94 03/07/17 14:00 84 03/07/17 14:00 88 24 81/50 95 03/07/17 13:30 86 13 83/50 94 03/07/17 13:00 87 13 81/53 94 03/07/17 12:30 87 13 83/53 94 03/07/17 12:00 94 Nasal Cannula 4.00 03/07/17 12:00 84 03/07/17 12:00 98.0 80 22 82/52 83 03/07/17 11:45 87 95 03/07/17 11:30 90 87/58 95 03/07/17 11:15 87 95 03/07/17 11:00 89 14 82/48 96 03/07/17 10:45 92 95 -: 03/07/17 0615 03/07/17 0615 Assessment/Plan Problem List: (1) NATHAN (acute kidney injury) Plan: no response to diuretics. Renal function is worse. Patient and family do not want to proceed with dialysis. He is terminally ill at this time. (2) Lumbar stenosis with neurogenic claudication Plan: s/p L5-S1 transforaminal interbody fusion/ L4, L5 and S1 decompressive laminectomy and fixation on 02/19/[address] Dumont. Nathan Lyon MD Mar 08, 2017 10:34
[2017-03-08 11:19] LABS: AUTOMATED NEUTROPHIL # 28.7 TH/MM3 (1.8-7.7); BASOPHIL % 0.1 % (0.0-2.0); EOSINOPHIL # 0.4 TH/MM3 (0-0.4); EOSINOPHIL % 1.3 % (0.0-4.0); HEMATOCRIT 30.1 % (39.0-51.0); LYMPH % 1.6 % (9.0-44.0); LYMPHOCYTE # 0.5 TH/MM3 (1.0-4.8); MEAN CELL VOLUME 97.4 FL (80.0-100.0); MEAN CORPUSCULAR HEMOGLOBIN 30.1 PG (27.0-34.0); MEAN CORPUSCULAR HGB CONC 30.9 % (32.0-36.0); MONO % 7.4 % (0.0-8.0); NEUT % 89.6 % (16.0-70.0); PLATELET COUNT 218 TH/MM3 (150-450); RED BLOOD COUNT 3.09 MIL/MM3 (4.50-5.90); RED CELL DISTRIBUTION WIDTH 15.9 % (11.6-17.2)
[2017-03-08 11:27] LABS: HEMO FLAGS AUTO DIFF
[2017-03-08 11:45] LABS: ALKALINE PHOSPHATASE 47 U/L (45-117); ALT (GPT) 17 U/L (12-78); ANION GAP 13 MEQ/L (5-15); AST (GOT) 29 U/L (15-37); BLOOD UREA NITROGEN 116 MG/DL (7-18); CHLORIDE 100 MEQ/L (98-107); GLOMERULAR FILTRATION RATE 8 ML/MIN (>89); SODIUM (NA) 133 MEQ/L (136-145)
[2017-03-08 12:05] LABS: BANDS 19 % (0-6); EOSINOPHILS 1 % (0-4); NEUTROPHIL # MANUAL DIFF 28.5 TH/MM3 (1.8-7.7); POLYS (SEG NEUTROPHILS) 70 % (16-70); SCAN/DIFF FINAL DIFF MANUAL; WBC DIFF SAMPLE 100
[2017-03-08 12:06] LABS: PLATELET ESTIMATE SMEAR NORMAL (NORMAL); PLATELET MORPHOLOGY NORMAL (NORMAL)
--- NOTE | 2017-03-08 18:03 | DEATH SUM ---
Summary Demographics Date Pronounced : Mar 08, 2017 Time Of : 1608 Pronounced By: Comfort RODRIGUEZ Preliminary Cause of : Cardiac arrest Shannon Morel MD Mar 08, 2017 18:03
--- NOTE | 2017-03-27 17:11 | HHI.DS ---
Discharge Summary Admission Date February 19, 2017 at 05:53 Discharge Date: Mar 08, 2017 Admitting Diagnosis (1) Ascites ICD Code: R18.8 (2) NATHAN (acute kidney injury) Diagnosis: Secondary ICD Code: N17.9 (3) Hypercalcemia Diagnosis: Secondary ICD Code: E83.52 (4) Hyperkalemia Diagnosis: Secondary ICD Code: E87.5 (5) Lumbar stenosis with neurogenic claudication Diagnosis: Principal ICD Code: M48.06 (6) HTN (hypertension), benign Diagnosis: Secondary ICD Code: I10 (7) Diabetes mellitus type 2, noninsulin dependent Diagnosis: Secondary ICD Code: E11.9 (8) Hyperlipidemia Diagnosis: Secondary ICD Code: E78.5 (9) KARYNA (obstructive sleep apnea) Diagnosis: Secondary ICD Code: G47.33 Procedures L4, L5, S1 decompressive laminectomy with medial facetectomy and foraminotomy with L5/S1 transforaminal interbody fusion with interbody cages and pedicle screw fixation on February 19, [address] Dumont. Brief History She presents for evaluation of low back pain, bilateral hip pain radiating to the left posterior thigh and lateral calf to the ankle. He states his right buttock area pain but does not radiate into the lower extremity. He's had pain for 10 years progressively getting worse. His pain improves with lying down. He has numbness in both of his feet and has been told he has peripheral neuropathy. He has had pain management for 3-[address] Goss and more recently Dr. Deras. He has also been to physical therapy 2 years ago at 2 different groups states that his pain was worse. He is currently miserable with his level of discomfort and activity restriction. Imaging MRI of the lumbar spine from November 25, 2016 reveals severe L5/S1 degenerative disc disease with facet arthropathy and a grade 1 spondylolisthesis with foraminal stenosis. There is also moderate L4/L5 spinal stenosis from a combination of facet and ligamentum flavum hypertrophy. There is a severe L2/L3 degenerative disc disease with endplate changes and a grade 1 retrolisthesis and postlaminectomy syndrome Hospital Course Patient underwent the above-noted procedure performed by Dr. Dumont. There was no intraoperative complications. Postoperatively patient was admitted to the medical surgical unit. Patient's pain was controlled with a ADMINISTRATIVE PERSONAL ASSISTANT. His Suero was discontinued. Patient was ambulating and ready to be transferred to rehabilitation when he developed hypoxia with ambulation. Rehabilitation transfer was placed on hold and medicine was consult. Patient was noted to have edema in his lower extremities and was given diuretics but despite this the edema is lower extremities continued. Patient then developed lab and electrolyte abnormalities with his creatinine increasing and calcium increasing his sodium decreasing was believed to have acute kidney injury. Nephrology was consult for medical assistance with his kidney disease. He also had episodes of hypotension and was transferred to the intensive care unit and seen by the emergency medicine specialist. CT of the abdomen was obtained which was concerning for metastatic disease and ascites. CT of the abdomen revealed ascites and diffuse omental caking/thickening typical of peritoneal carcinomatosis. Primary was uncertain but possibly gastric. Gastroenterology was consulted and patient underwent an endoscopy with biopsies. Patient underwent ultrasound guided paracentesis with removal of 7.2 L of fluid. Patient then developed periods of hypotension was given fluid bolus. Requires central line placement for hypotension. Patient continued worsening renal function. Nephrology recommended hemodialysis but the patient refused. Patient went into cardiac arrest on March 08, 2017 and at 1608. Pt Condition on Discharge: Deteriorating Discharge Disposition: Trnsfr to Other Facility (Pt in hospital.) Discharge Instructions DIET: Follow Instructions for: Diabetic Diet ACTIVITIES You can perform: Regular-No Restrictions Activities to Avoid: Lifting/Bending, Prolonged Standing, Strenuous Activity, Bathing, Driving ADDITIONAL Activity Instructio: Lumbar brace on when oob. New Medications: Cyclobenzaprine (Flexeril) 10 Mg Tab 10 MG PO Q8H PRN MUSCLE SPASM #30 TAB PENDING: Hydrocodone-Acetaminophen (Hydrocodone-Acetaminophen) 10-325 mg Tab 1 TAB PO Q4H PRN PAIN SCALE 1 TO 5 #60 TAB Continued Medications: Aspirin (Aspirin) 81 Mg Tabdr 81 MG PO DAILY Blood Clot Prevention TAB Atorvastatin (Lipitor) 10 Mg Tab 10 MG PO HS Cholesterol Management #30 Ref 0 TAB Gabapentin (Gabapentin) 300 Mg Cap 300 MG PO DIRECTED 2 tablets @1200, 1 tablet @1700, 1 tablet @1900, 1 tablet @2100 #60 Ref 0 CAP Hydrochlorothiazide (Hydrochlorothiazide) 25 Mg Tab 25 MG PO DAILY Blood Pressure Management #30 Ref 0 TAB Latanoprost Opth Drops (Latanoprost Opth Drops) 0.005% Drops 1 DROP EACH EYE HS Refrigerate until opened. Glaucoma #2.5 Ref 0 ML Losartan (Losartan) 25 Mg Tab 25 MG PO DAILY Blood Pressure Management #30 Ref 0 TAB Metformin (Metformin) 500 Mg Tab 500 MG PO BIDPC With meals Blood Sugar Management #60 Ref 0 TAB Ropinirole (Ropinirole) 0.5 Mg Tab 0.5 MG PO DIRECTED 1 tablet @1200, 1 tablet @1700, 2 tablets @2100 #90 Ref 0 TAB Timolol Opth Drops (Timolol Opth Drops) 0.5 % Soln 1 DROP EACH EYE Q12HR Glaucoma #1 Ref 0 BOTTLE Trazodone (Trazodone) 50 Mg Tab 100 MG PO HS Control Depression #30 Ref 0 TAB Zolpidem (Ambien) 5 Mg Tab 5 MG PO HS PRN INSOMNIA Ref 0 TAB Discontinued Medications: Oxycodone-Acetaminophen (Oxycodone-Acetaminophen) 5-325 mg Tab 0.5 TAB PO Q8HR PRN PAIN Ref 0 TAB Additional Information Pt on 03/08/17 from cardiac arrest. Johny Moore Mar 27, 2017 17:11
== END 2017-03-08 16:08 | disposition expired | DRG 459 ==
LOC: HSDI 05:53 → EDSTATUS 08:30 → N05B 15:26 → N03B 02-27 17:23 → N03A 03-01 00:02 → N05A 03-02 10:00 → HIMW 03-04 09:50
PROVIDERS: ADMIT Neurological Surgery; ATTEND Neurological Surgery
PROC: 01NB0ZZ Release Lumbar Nerve, Open Approach (ICD-10-PCS; 2017-02-19)
PROC: 0ST40ZZ Resection of Lumbosacral Disc, Open Approach (ICD-10-PCS; 2017-02-19)
PROC: 0SG30AJ Fusion of Lumbosacral Joint with Interbody Fusion Device, Posterior Approach, Anterior Column, Open Approach (ICD-10-PCS; principal; 2017-02-19 08:17)
PROC: 0DB98ZX Excision of Duodenum, Via Natural or Artificial Opening Endoscopic, Diagnostic (ICD-10-PCS; 2017-03-01)
PROC: 0DB68ZZ Excision of Stomach, Via Natural or Artificial Opening Endoscopic (ICD-10-PCS; 2017-03-01)
PROC: 0W9G3ZZ Drainage of Peritoneal Cavity, Percutaneous Approach (ICD-10-PCS; 2017-03-03)
PROC: 02HV33Z Insertion of Infusion Device into Superior Vena Cava, Percutaneous Approach (ICD-10-PCS; 2017-03-06)
PROC: B544ZZA Ultrasonography of Left Jugular Veins, Guidance (ICD-10-PCS; 2017-03-06)
DX: M51.17 Intervertebral disc disorders with radiculopathy, lumbosacral region (principal); N17.0 Acute kidney failure with tubular necrosis; R57.1 Hypovolemic shock; G92 Toxic encephalopathy; R18.8 Other ascites; E11.22 Type 2 diabetes mellitus with diabetic chronic kidney disease; E87.70 Fluid overload, unspecified; N18.3 Chronic kidney disease, stage 3 (moderate); E87.1 Hypo-osmolality and hyponatremia; J98.11 Atelectasis; Z51.5 Encounter for palliative care; E87.5 Hyperkalemia; G62.9 Polyneuropathy, unspecified; E83.52 Hypercalcemia; M48.06 Spinal stenosis, lumbar region; I12.9 Hypertensive chronic kidney disease with stage 1 through stage 4 chronic kidney disease, or unspecified chronic kidney disease; E78.5 Hyperlipidemia, unspecified; G47.33 Obstructive sleep apnea (adult) (pediatric); M46.06 Spinal enthesopathy, lumbar region; M43.17 Spondylolisthesis, lumbosacral region; G25.81 Restless legs syndrome; N40.0 Benign prostatic hyperplasia without lower urinary tract symptoms; E66.9 Obesity, unspecified; K42.9 Umbilical hernia without obstruction or gangrene; K22.2 Esophageal obstruction; K31.7 Polyp of stomach and duodenum; K59.00 Constipation, unspecified; D64.9 Anemia, unspecified; D72.829 Elevated white blood cell count, unspecified; H40.9 Unspecified glaucoma; I46.9 Cardiac arrest, cause unspecified; M06.4 Inflammatory polyarthropathy; Z66 Do not resuscitate; Z68.39 Body mass index [BMI] 39.0-39.9, adult; Z79.84 Long term (current) use of oral hypoglycemic drugs; Z79.891 Long term (current) use of opiate analgesic
CPT/HCPCS: 36556; 49083; 71010; 71020; 71250; 72100; 74000; 74176; 76000; 76775; 76937; 80048; 80053; 80076; 80171; 81001; 82042; 82306; 82330; 82397; 82550; 82570; 82945; 82948; 83036; 83605; 83735; 83880; 83970; 84100; 84155; 84165; 84300; 84540; 85007; 85025; 85027; 85384; 85610; 85730; 86160; 86335; 86850; 86900; 86901; 87040; 87070; 87086; 87205; 88112; 88305; 89051; 93970; 94150; 94640; 94664; C1713; C1729; C9113; J0131; J0630; J0690; J0780; J1170; J1650; J1815; J1940; J2060; J2250; J2270; J2370; J2405; J2430; J2543; J2710; J3010; J3370; J3480; J7030; J7040; J7050; J7060; J7120; J7613; L0627; P9045